=== PATIENT | female | born 2000 | race Two or more races ===

== ENCOUNTER 2020-05-21 12:44 | Emergency (ER) | payer MEDICAID, SELFPAY ==
[2020-05-21 14:16] VITALS: BP 135/94; PULSE 96; RESP 18; TEMP 36.3; O2SAT 99; BMI 32.9
--- NOTE | 2020-05-21 14:40 | CT_ITS ---
EXAMINATION: CT ABDOMEN AND PELVIS WITHOUT CONTRAST CLINICAL INFORMATION: Umbilical pain. Evaluate for abscess. COMPARISON: Abdominal ultrasound March 2019 TECHNIQUE: Multidetector volumetric imaging was performed from the superior aspect of the liver through the pubic symphysis. Sagittal and coronal reformatted images were obtained on the technologist's workstation. This CT examination was performed using dose optimization techniques as appropriate, variously including the following: *Automated exposure control *Adjustment of mA and/or kV according to patient size (this includes techniques or standardized protocols for targeted exams where dose is matched to indication/reason for exam; i.e. extremities or head) *Use of iterative reconstruction technique DLP: 1516 mGy-cm FINDINGS: LUNG BASES: The visualized lung bases are unremarkable. LIVER, GALLBLADDER, AND BILIARY TREE: The liver is normal in size, shape, and attenuation. No focal hepatic lesion or biliary ductal dilatation is present. The gallbladder is unremarkable with no evidence of radiopaque gallstones, gallbladder wall thickening, or obvious pericholecystic inflammatory changes. PANCREAS: Unremarkable. SPLEEN: Unremarkable. ADRENAL GLANDS: Unremarkable. KIDNEYS AND URETERS: The kidneys are normal in size, shape, and attenuation. No hydronephrosis, hydroureter, or calculi seen. No perinephric stranding. BLADDER: Unremarkable. GASTROINTESTINAL TRACT: The small and large bowel are unremarkable. The appendix is unremarkable. ABDOMINAL WALL: There is stranding of the subcutaneous fat in the periumbilical region questionable for cellulitis. No fluid collection/abscess or hernia is seen. LYMPH NODES: Normal. VASCULAR: Unremarkable. PELVIC VISCERA: Unremarkable. 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 Bony structures are otherwise unremarkable CT/CT abdomen pelvis wo con IMPRESSION: Stranding of the fat in the periumbilical region questionable for cellulitis. No evidence of collection/abscess or hernia.
[2020-05-21 15:06] LABS: UPreg QC Valid YES; Urine Pregnancy NEGATIVE (NEGATIVE)
--- NOTE | 2020-05-21 15:47 | ED_ITS ---
HPI - Abdominal Pain General Chief Complaint: Abdominal Pain Stated Complaint: belly button pain Time Seen by Provider: 05/21/20 14:40 Source: patient Mode of arrival: ambulatory Limitations: no limitations History of Present Illness HPI narrative: Patient is a 20-year-old female with no significant past medical history presenting with few days of belly button pain when which is worse when she bends over. She denies fever nausea vomiting or diarrhea or pain in any other part of her abdomen. She has never had this kind of pain before, she has no tattoos or piercings in the area. Related Data Previous Rx's Medication Instructions Recorded cephalexin [Keflex] 500 mg PO QID #28 cap 05/21/20 doxycycline hyclate 100 mg PO BID #14 tab 05/21/20 Allergies Allergy/AdvReac Type Severity Reaction Status Date / Time No Known Allergies Allergy Verified 05/21/20 14:16 Review of Systems Review of Systems Yes all other systems are reviewed and are negative Physical Exam Vital Signs: Vital Signs: Last Vital Signs Temp 97.4 F 05/21/20 14:16 Pulse 96 05/21/20 14:16 Resp 18 05/21/20 14:16 BP 135/94 H 05/21/20 14:16 Pulse Ox 99 05/21/20 14:16 Body Mass Index 32.9 Const: General: cooperative, healthy appearing, comfortable, no acute distress and well developed Nutritional Appearance: average body habitus Orientation/consciousness: patient oriented x3 Eyes: General: appearance normal, both eyes and all related structures Neck: Neck: Yes normal visual inspection Resp: Effort & Inspection: normal respiratory effort and able to speak in complete sentences GI: Inspection: Yes normal to inspection Palpation (GI): Soft to palpation, Tenderness to palpation present (GI) periumbilically, no hernias and no masses Skin: General skin exam: no rashes or lesions noted Neuro: General: patient oriented x3 Course Course Course Narrative: 20-year-old female no significant past medical history presenting with a couple of days pain on her belly button. No obvious infection or abscess is noted but patient has point tenderness on the belly button area at the 06:00 o'clock angela. Will get CT scan to rule out abscess. MDM - Abdominal Pain Lab Data Labs: Lab Results 05/21/20 Range/Units 14:52 Urine Test NEGATIVE (NEGATIVE) Imaging Data CT scan - abdomen: Attestation: I personally reviewed and interpreted this imaging study as follows: Radiologist's impression: [facility] [place], [place] [address]HU Scan ReportSigned Patient: Tracie Mixon [facility]#: [id number]: 2000Acct:[id number]/Sex: 20 / FADM Date: 05/21/20Loc: HO.EDAttending Dr: Ordering Physician: JANE DUBOIS Date of Service: 05/21/20 Procedure(s): CT abdomen pelvis wo con Accession Number(s): [id number] cc: JANE DUBOIS~ EXAMINATION: CT ABDOMEN AND PELVIS WITHOUT CONTRAST CLINICAL INFORMATION: Umbilical pain. Evaluate for abscess. COMPARISON: Abdominal ultrasound March 2019 TECHNIQUE: Multidetector volumetric imaging was performed from the superior aspect of the liver through the pubic symphysis. Sagittal and coronal reformatted images were obtained on the technologist's workstation. This CT examination was performed using dose optimization techniques as appropriate, variously including the following: *Automated exposure control *Adjustment of mA and/or kV according to patient size (this includes techniques or standardized protocols for targeted exams where dose is matched to indication/reason for exam; i.e. extremities or head) *Use of iterative reconstruction technique DLP: 1516 mGy-cm FINDINGS: LUNG BASES: The visualized lung bases are unremarkable. LIVER, GALLBLADDER, AND BILIARY TREE: The liver is normal in size, shape, and attenuation. No focal hepatic lesion or biliary ductal dilatation is present. The gallbladder is unremarkable with no evidence of radiopaque gallstones, gallbladder wall thickening, or obvious pericholecystic inflammatory changes. PANCREAS: Unremarkable. SPLEEN: Unremarkable. ADRENAL GLANDS: Unremarkable. KIDNEYS AND URETERS: The kidneys are normal in size, shape, and attenuation. No hydronephrosis, hydroureter, or calculi seen. No perinephric stranding. BLADDER: Unremarkable. GASTROINTESTINAL TRACT: The small and large bowel are unremarkable. The appendix is unremarkable. ABDOMINAL WALL: There is stranding of the subcutaneous fat in the periumbilical region questionable for cellulitis. No fluid collection/abscess or hernia is seen. LYMPH NODES: Normal. VASCULAR: Unremarkable. PELVIC VISCERA: Unremarkable. 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 Bony structures are otherwise unremarkable CT/CT abdomen pelvis wo con IMPRESSION: Stranding of the fat in the periumbilical region questionable for cellulitis. No evidence of collection/abscess or hernia. Discharge Plan Discharge Clinical Impression: Cellulitis Patient Disposition: Home, Self-Care Instructions: Cellulitis (ED) Additional Instructions: If you develop a fever or the pain is not improving in the next couple of days, please seek emergency medical attention or follow-up with your PCP. Also, as discussed please be sure to take both antibiotics in full, even if you are feeling better. Prescriptions: New cephalexin [Keflex] 500 mg capsule 500 mg PO QID Qty: 28 RF: 0 doxycycline hyclate 100 mg tablet 100 mg PO BID Qty: 14 RF: 0 PMFSH Past Medical History Medical History Asthma Social History Social History Alcohol intake: never Smoking Status: Never smoker Use of substances other than those prescribed or required for medical reasons: No Advance Directives: Yes Advance Directives Information Provided: No Advance Directives on File: No
== END 2020-05-21 16:52 | disposition home or self-care (01) ==
PROVIDERS: Physician Assistant; Emergency Provider Emergency Medicine
DX: L03.316 Cellulitis of umbilicus (principal); R10.9 Unspecified abdominal pain
CPT/HCPCS: 74176; 81025; 99284

== ENCOUNTER 2020-07-22 21:31 | Emergency (ER) | payer MEDICAID, SELFPAY ==
[2020-07-22 21:32] VITALS: BP 126/74; PULSE 102; RESP 18; TEMP 37.2; O2SAT 98
--- NOTE | 2020-07-22 23:13 | ED.GENADULT ---
HPI - General Adult General Chief complaint: General Medical Stated complaint: BELLY BUTTON INFECTION Time Seen by Provider: 07/22/20 23:13 Source: patient Mode of arrival: ambulatory Limitations: no limitations History of Present Illness HPI narrative: Patient's history of umbilical infection in the past comes here with similar redness and tenderness for last 2 days no pus discharge no fever or chills Related Data Previous Rx's Medication Instructions Recorded cephalexin [Keflex] 500 mg PO QID #28 cap 05/21/20 doxycycline hyclate 100 mg PO BID #14 tab 05/21/20 doxycycline hyclate 100 mg PO BID #20 cap 07/22/20 Allergies Allergy/AdvReac Type Severity Reaction Status Date / Time No Known Allergies Allergy Verified 05/21/20 14:16 Review of Systems Review of Systems: Yes all other systems are reviewed and are negative PMFSH Past Medical History Medical History Asthma Cellulitis of umbilicus Social History Social History Alcohol intake: never Smoking Status: Never smoker Smoked in Last 30 Days: No Use of substances other than those prescribed or required for medical reasons: No Advance Directives: No Advance Directives Information Provided: Yes Physical Exam Vital Signs: Vital Signs: Last Vital Signs Temp 98.9 F 07/22/20 21:32 Pulse 102 H 07/22/20 21:32 Resp 18 07/22/20 21:32 BP 126/74 07/22/20 21:32 Pulse Ox 98 07/22/20 21:32 Body Mass Index 0.3 Const: General: no acute distress and well developed HENMT: Head: Yes normocephalic Eyes: General: appearance normal, both eyes and all related structures Resp: Effort & Inspection: normal respiratory effort Skin: Full body images: 1. Slight tenderness and swelling of umbilicus area slight redness without any significant pus discharge Discharge Plan Discharge Clinical Impression: Cellulitis Qualifiers: Site of cellulitis: other site Qualified Code(s): L03.818 - Cellulitis of other sites Patient Disposition: Home, Self-Care Instructions: Cellulitis (ED) Additional Instructions: Local care as advised Take antibiotic as prescribed Report to the ER if worsening of infection/fever Prescriptions: New doxycycline hyclate 100 mg capsule 100 mg PO BID Qty: 20 RF: 0 No Action cephalexin [Keflex] 500 mg capsule 500 mg PO QID Qty: 28 RF: 0 doxycycline hyclate 100 mg tablet 100 mg PO BID Qty: 14 RF: 0
== END 2020-07-22 23:51 | disposition home or self-care (01) ==
PROVIDERS: Emergency Provider Internal Medicine
DX: L03.316 Cellulitis of umbilicus (principal)
CPT/HCPCS: 99283; 99284

== ENCOUNTER → 2021-01-18 12:51 | Outpatient (BNVA) | payer MEDICAID, SELFPAY | PROVIDERS: Referring Provider General Practice; Visit Provider Surgery | DX: L02.216 Cutaneous abscess of umbilicus (principal) | CPT/HCPCS: 99202 ==

== ENCOUNTER 2021-03-12 11:52 | Emergency (ER) | payer MEDICAID, SELFPAY ==
--- NOTE | ~2021-03-12 | XR_ITS ---
EXAMINATION: XR CHEST CLINICAL INFORMATION: Cough. Wheezing. COMPARISON: 12/30/18. TECHNIQUE: Frontal view of the chest was obtained. FINDINGS: There is mild patchy airspace opacity peripherally at the left base consistent with developing pneumonia. The pleural spaces are clear. The heart and mediastinal structures are normal. XR/XR chest 1V IMPRESSION: Mild patchy airspace opacity left lower lobe.
[2021-03-12 12:20] VITALS: BP 153/95; PULSE 112; RESP 18; TEMP 37; O2SAT 98; BMI 32.9
--- NOTE | 2021-03-12 13:55 | ED_ITS ---
HPI - General Adult General Chief complaint: General Medical Stated complaint: flu like symptoms Time Seen by Provider: 03/12/21 13:03 Source: patient Mode of arrival: ambulatory Limitations: no limitations History of Present Illness HPI narrative: 20-year-old female with history of mild intermittent asthma and recurrent bronchitis presents to the ER with 1 week of feeling unwell. She reports a history of getting bronchitis about 5x a year and when she cough started 1 week ago she thought it was just another occurrence of that. She reports over the past few days her cough has become productive of yellow phlegm. She has been feeling feverish but has not had any fevers at home, with a T- max of 99 degrees. She also reports headaches and body aches, nausea with decreased p.o. intake. She states every time she coughs her chest hurts. She has no shortness of breath, difficulty breathing, chest pain at rest. She states she ran out of her albuterol pump and thought she was wheezy yesterday. She is asking for refill. She denies any sick contacts. She has not vaccinated for COVID-19. MD complaint: cough, headache Onset (ago): week(s) (1) Location: head and chest Radiation: non-radiation Severity: moderate Severity scale (1-10): 5 Quality: aching Pain Consistency: intermittent Relieving factors: medication Exacerbating factors: movement Associated symptoms: cough, fever/chills, headaches, loss of appetite and malaise Treatments prior to arrival: none Related Data Home Medications Medication Instructions Recorded Confirmed ibuprofen 600 mg tablet 600 mg PO Q8H PRN 01/18/21 Previous Rx's Medication Instructions Recorded cephalexin 500 mg capsule (Keflex) 500 mg PO QID #28 cap 05/21/20 doxycycline hyclate 100 mg tablet 100 mg PO BID #14 tab 05/21/20 doxycycline hyclate 100 mg capsule 100 mg PO BID #20 cap 07/22/20 albuterol sulfate 90 mcg/actuation 1 inh INHALATION QID PRN #6.7 g 03/12/21 aerosol inhaler amoxicillin 875 mg-potassium 1 tab PO BID #14 tab 03/12/21 clavulanate 125 mg tablet (Augmentin) azithromycin 250 mg tablet See Rx Instructions .ROUTE 03/12/21 (Zithromax Z-Don) .COMPLEX #6 tab prednisone 20 mg tablet 40 mg PO DAILY #10 tab 03/12/21 Allergies Allergy/AdvReac Type Severity Reaction Status Date / Time No Known Allergies Allergy Verified 05/21/20 14:16 Review of Systems Review of Systems: Constitutional: No Fever, + Chills ENT/Mouth: No sore throat, + Rhinorrhea, No Swallowing Difficulty Eyes: No Eye Pain, No Swelling, No Redness Cardiovascular: + Chest Pain (when coughing), No SOB, No Orthopnea, No Edema Respiratory: + Cough, + Sputum, + Wheezing, No dyspnea Gastrointestinal: No Nausea, No Vomiting, No Diarrhea, No abdominal Pain Genitourinary: No Dysuria, No Urinary Frequency, No Hematuria Musculoskeletal: No joint pain, + Myalgias Skin: No Skin Lesions, No rash Neuro: No Weakness, No Numbness, No Dizziness, + Headache Psych: No Anxiety/Panic, No Depression Heme/Lymph: No Bruising, No Lymphadenopathy PMFSH Past Medical History Medical History Asthma Cellulitis of umbilicus Surgical History Hx of umbilical hernia repair Social History Social History Alcohol intake: never Advance Directives: No Physical Exam Vital Signs: Vital Signs: Last Vital Signs Temp 98.6 F 03/12/21 12:20 Pulse 112 H 03/12/21 12:20 Resp 18 03/12/21 12:20 BP 153/95 H 03/12/21 12:20 Pulse Ox 98 03/12/21 12:20 Body Mass Index 32.9 Appearance: Alert. Oriented X3. No acute distress. Eyes: Pupils equal, round and reactive to light. ENT: Pharynx normal. Neck: Normal inspection. Neck supple. CVS: Normal heart rate and rhythm. Pulses normal. Respiratory: No respiratory distress. Breath sounds normal. Abdomen: Soft and nontender. +BS x4 Skin: Skin warm and dry. Normal skin color. Normal skin turgor. No rashes. Extremities: No lower extremity edema. Neuro: Oriented X 3. No motor deficit. No sensory deficit. Course Course Course Narrative: 20 y/o female With history of mild intermittent asthma presenting to the ER with COVID and flu like symptoms for last 1 week. She is not vaccinated for COVID. Her lungs are clear & she is afebrile. HR 112 in triage which has normalized to the 80s on my examination. She is nontoxic- appearing. Her clinical presentation is most consistent with acute viral syn drome. Will get viral PCR chest x-ray to rule out pneumonia. Reevaluation(s) Reevaluation #1: Viral PCR negative. CXR with LLL opacity c/w CAP. Will treat with PO abx and prednisone. Albuterol refill sent to pharmacy. Stable for d/c home. Medical Decision Making Lab Data Labs: Lab Results 03/12/21 03/12/21 Range/Units 13:41 14:19 Urine Test NEGATIVE (NEGATIVE) Influenza Type A (PCR) NEGATIVE (Negative) Influenza Type B (PCR) NEGATIVE (Negative) RSV RNA Qual (PCR) NEGATIVE (Negative) SARS-CoV-2 RNA (RT-PCR) NEGATIVE (Negative) Critical Care Time Critical Care Time Critical Care Time: No Discharge Plan Discharge Clinical Impression: Pneumonia Qualifiers: Pneumonia type: due to unspecified organism Laterality: left Lung location: lower lobe of lung Qualified Code(s): J18.9 - Pneumonia, unspecified organism Patient Disposition: Home, Self-Care Instructions: Pneumonia (ED) Additional Instructions: You were negative for COVID-19, influenza and RSV. Your x-ray showed a small pneumonia in the left lower lung. Take the prescribed antibiotics as directed. Complete the entire course. Also take the prescribed steroids for the inflammation in your lungs. Use the inhaler as needed. Recommend Mucinex to help break up the pneumonia. Take Tylenol and/or Motrin as needed for body aches and fevers. Follow up with your doctor as needed. If you develop new or worsening symptoms call 911 or come back to the ER for further evaluation. Prescriptions: New azithromycin [Zithromax Z-Don] 250 mg tablet See Rx Instructions .ROUTE .COMPLEX Qty: 6 RF: 0 prednisone 20 mg tablet 40 mg PO DAILY Qty: 10 RF: 0 albuterol sulfate 90 mcg/actuation HFA aerosol inhaler 1 inh inhalation QID PRN (Reason: shortness of breath or wheezing) Qty: 6.7 RF: 0 amoxicillin-pot clavulanate [Augmentin] 875-125 mg tablet 1 tab PO BID Qty: 14 RF: 0 No Action cephalexin [Keflex] 500 mg capsule 500 mg PO QID Qty: 28 RF: 0 doxycycline hyclate 100 mg tablet 100 mg PO BID Qty: 14 RF: 0 doxycycline hyclate 100 mg capsule 100 mg PO BID Qty: 20 RF: 0 ibuprofen 600 mg tablet 600 mg PO Q8H PRNRF: 0
[2021-03-12 14:24] LABS: UPreg QC Valid YES
[2021-03-12 14:26] LABS: Urine Pregnancy NEGATIVE (NEGATIVE)
[2021-03-12 14:41] LABS: Influenza A PCR NEGATIVE (Negative); Influenza B PCR NEGATIVE (Negative); Resp Syncy Virus RNA Qual PCR NEGATIVE (Negative); SARS COV2 PCR INHOUSE NEGATIVE (Negative)
[2021-03-12 15:30] VITALS: BP 146/91; PULSE 120; RESP 18; TEMP 36.9; O2SAT 97
== END 2021-03-12 15:38 | disposition home or self-care (01) ==
PROVIDERS: Physician Assistant; Emergency Provider Emergency Medicine Emergency Medical Services; PCP General Practice
DX: J18.9 Pneumonia, unspecified organism (principal); J45.20 Mild intermittent asthma, uncomplicated; Z20.822 Contact with and (suspected) exposure to COVID-19
CPT/HCPCS: 0241U; 36415; 71045; 81025; 99283; 99284

== ENCOUNTER 2021-08-22 18:14 | Emergency (ER) | payer MEDICAID, SELFPAY ==
[2021-08-22 20:58] VITALS: BP 126/68; PULSE 88; RESP 14; TEMP 37.1; O2SAT 99; BMI 32.7
[2021-08-22 21:14] LABS: Strep A Nucleic Acid Negative (Negative)
[2021-08-22 21:18] LABS: COVID-19 Test Negative (Negative); IDNOW Serial# 16C4AD1C; Influenza A Negative (Negative); Influenza B2 Negative (Negative)
--- NOTE | 2021-08-22 22:24 | ED_ITS ---
HPI - URI/Sore Throat General Chief Complaint: Upper Respiratory Symptoms Stated Complaint: congestion/sore throat/ear pain Time Seen by Provider: 08/22/21 22:24 Source: patient Mode of arrival: ambulatory Limitations: no limitations History of Present Illness HPI Narrative: 21 y//o female presents to the ER with sore throat, bilateral ear pain, headache, nasal congestion for the last 3 days. She denies fever or chills. No known sick contacts. She reports a dry cough at night and post nasal drip. No known history of seasonal allergies but she has been sneezing a lot lately and has watery and itchy eyes. No SOB or chest pain. No N/V/D or abdominal pain. She reports a history of asthma but denies any wheezing or need for her inhaler lately. MD elicited complaint: sore throat, rhinorrhea and nasal congestion Pertinent past history: asthma Onset (ago): day(s) (3) Consistency: constant Severity: moderate Description of mucous: clear and watery Able to tolerate fluids by mouth: Yes Exacerbating factors: other (night) Relieving factors: nothing Associated symptoms: headache, rhinorrhea, nasal congestion, sore throat and cough Treatments prior to arrival: none Related Data Home Medications Medication Instructions Recorded Confirmed ibuprofen 600 mg tablet 600 mg PO Q8H PRN 01/18/21 Previous Rx's Medication Instructions Recorded cephalexin 500 mg capsule (Keflex) 500 mg PO QID #28 cap 05/21/20 doxycycline hyclate 100 mg tablet 100 mg PO BID #14 tab 05/21/20 doxycycline hyclate 100 mg capsule 100 mg PO BID #20 cap 07/22/20 albuterol sulfate 90 mcg/actuation 1 inh INHALATION QID PRN #6.7 g 03/12/21 aerosol inhaler amoxicillin 875 mg-potassium 1 tab PO BID #14 tab 03/12/21 clavulanate 125 mg tablet (Augmentin) azithromycin 250 mg tablet See Rx Instructions .ROUTE 03/12/21 (Zithromax Z-Don) .COMPLEX #6 tab prednisone 20 mg tablet 40 mg PO DAILY #10 tab 03/12/21 cetirizine 10 mg capsule (Zyrtec) 10 mg PO DAILY #14 cap 08/22/21 fluticasone propionate 50 1 spray INTRANASAL Q12H #16 g 08/22/21 mcg/actuation nasal spray,suspension (Flonase Allergy Relief) Allergies Allergy/AdvReac Type Severity Reaction Status Date / Time No Known Allergies Allergy Verified 05/21/20 14:16 Review of Systems Review of Systems: Constitutional: No Fever, No Chills ENT/Mouth: + sore throat, + Rhinorrhea, No Swallowing Difficulty Eyes: No Eye Pain, No Swelling, No Redness, +itchy eyes, +watery eyes, No discharge, +Otalgia Cardiovascular: No Chest Pain, No SOB Respiratory: + Cough, No Sputum, No Wheezing, No dyspnea Gastrointestinal: No Nausea, No Vomiting, No Diarrhea, No abdominal Pain Musculoskeletal: No joint pain, No Myalgias Skin: No Skin Lesions, No rash Neuro: No Dizziness, + Headache Heme/Lymph: No Lymphadenopathy PMFSH Past Medical History Medical History Asthma Cellulitis of umbilicus Surgical History Hx of umbilical hernia repair Social History Social History Alcohol intake: never Advance Directives: No Physical Exam Vital Signs: Vital Signs: Last Vital Signs Temp 97.9 F 08/22/21 22:26 Pulse 79 08/22/21 22:26 Resp 17 08/22/21 22:26 BP 120/80 08/22/21 22:26 Pulse Ox 99 08/22/21 22:26 BMI result Body Mass Index 32.7 Appearance: Alert. Oriented X3. No acute distress. Eyes: Pupils equal, round and reactive to light. ENT: Pharynx with moist mucus membranes. Tonsils enlarged bilaterally without erythema or exudate. uvula midline, normal voice. nasal turbinates are e rythematous and inflammed wtih clear nasal discharge, no sinus tenderness. normal TMs bilaterally. Neck: Normal inspection. Neck supple. No LAD CVS: Normal heart rate and rhythm. Pulses normal. Respiratory: No respiratory distress. Breath sounds normal. Skin: Skin warm and dry. Normal skin color. Normal skin turgor. No rashes. Extremities: No lower extremity edema. Neuro: Oriented X 3. grossly normal, nonfocal Course Course Course Narrative: 21 yo female with history of mild intermittent asthma presents to the ER with URI symptoms x3 days. VS are normal. Exam is benign. COVID, Flu and Strep are all negative. Symptom most likely due to seasonal allergies vs viral illness or combination thereof. Recommend starting Zyrtec and Flonase as well as taking OTC cold/flu medications as needed for her other symptoms. She is stable for discharge home. Work note provided per request. MDM - URI/Sore Throat Lab Data Labs: Lab Results 08/22/21 08/22/21 08/22/21 Range/Units 20:55 20:55 20:55 COVID-19 (TRACEY) Negative (Negative) COVID-19 Clin Com See Note Influenza Type A (SHIRAZ) Negative (Negative) Influenza Type B (SHIRAZ) Negative (Negative) Influenza A & B Note See Note S. pyogenes GrpA SHIRAZ Negative (Negative) Critical Care Time Critical Care Time Critical Care Time: No Discharge Plan Discharge Clinical Impression: Viral infection, Seasonal allergies Patient Disposition: Home, Self-Care Instructions: Allergic Rhinitis (DC), Viral Syndrome (ED) Additional Instructions: You are negative for COVID-19, influenza and strep throat. Your symptoms are most likely due to either another viral type infection or due to seasonal allergies. Recommend starting the newly prescribed medications as directed. Take cold and flu medications as needed for your other symptoms. Rest and stay hydrated, drink plenty of water. Follow-up with your primary care doctor as needed. If you develop new or worsening symptoms call 911 or come back to the ER for further evaluation. Prescriptions: New Zyrtec 10 mg capsule 10 mg PO DAILY Qty: 14 0RF fluticasone propionate [Flonase Allergy Relief] 50 mcg/actuation spray,suspension 1 spray intranasal Q12H Qty: 16 0RF Rx Instructions: administer into each nostril No Action cephalexin [Keflex] 500 mg capsule 500 mg PO QID Qty: 28 0RF doxycycline hyclate 100 mg tablet 100 mg PO BID Qty: 14 0RF doxycycline hyclate 100 mg capsule 100 mg PO BID Qty: 20 0RF azithromycin [Zithromax Z-Don] 250 mg tablet See Rx Instructions .ROUTE .COMPLEX Qty: 6 0RF Rx Instructions: take 500 mg today (day 1), then 250 mg for 4 days (days 2-5) prednisone 20 mg tablet 40 mg PO DAILY Qty: 10 0RF albuterol sulfate 90 mcg/actuation HFA aerosol inhaler 1 inh inhalation QID PRN (Reason: shortness of breath or wheezing) Qty: 6.7 0RF amoxicillin-pot clavulanate [Augmentin] 875-125 mg tablet 1 tab PO BID Qty: 14 0RF ibuprofen 600 mg tablet 600 mg PO Q8H PRN0RF Stand Alone Forms: Work/School Release Interventions: ED Discharge Assessment Last Done: 08/22/21 22:56 Discharge Date/Time: 08/22/21 23:25
[2021-08-22 22:26] VITALS: BP 120/80; PULSE 79; RESP 17; TEMP 36.6; O2SAT 99
== END 2021-08-22 23:25 | disposition home or self-care (01) ==
LOC: HO.ED 22:50
PROVIDERS: Emergency Provider Student in an Organized Health Care Education/Training Program
DX: B34.9 Viral infection, unspecified (principal); J02.8 Acute pharyngitis due to other specified organisms; R51.9 Headache, unspecified; J34.89 Other specified disorders of nose and nasal sinuses; R05.9 Cough, unspecified; Z20.822 Contact with and (suspected) exposure to COVID-19; Z79.899 Other long term (current) drug therapy
CPT/HCPCS: 87502; 87635; 87651; 99283; 99284

== ENCOUNTER 2022-04-18 15:14 | Emergency (ER) | payer MEDICAID, SELFPAY ==
--- NOTE | ~2022-04-18 | XR_ITS ---
EXAMINATION: XR FOOT, LEFT CLINICAL INFORMATION: Left fifth toe pain. COMPARISON: None TECHNIQUE: AP, lateral, and oblique views of the left foot. FINDINGS: There is a nondisplaced fracture proximal end of proximal phalanx fifth digit. Minimal soft tissue swelling seen. No additional fracture seen. XR/XR foot LT 2V IMPRESSION: Fracture proximal end proximal phalanx fifth digit. Mild soft tissue swelling
[2022-04-18 17:17] VITALS: BP 140/79; PULSE 78; RESP 18; TEMP 36.6; O2SAT 99; BMI 23.3
--- NOTE | 2022-04-18 17:18 | ED_ITS ---
HPI - General Adult General Chief complaint: Extremity Injury, Lower Stated complaint: toe injury Source: patient Mode of arrival: ambulatory Limitations: no limitations History of Present Illness HPI narrative: This is a 21-year-old female presenting to the emergency department complaints pain to her left 5th toe. Patient tells me she stubbed her toe earlier today. Denies numbness, tingling. Reports swelling, pain and bruising at the site. Related Data Home Medications Medication Instructions Recorded Confirmed ibuprofen 600 mg tablet 600 mg PO Q8H PRN 01/18/21 Previous Rx's Medication Instructions Recorded cephalexin 500 mg capsule (Keflex) 500 mg PO QID #28 caps 05/21/20 doxycycline hyclate 100 mg tablet 100 mg PO BID #14 tabs 05/21/20 doxycycline hyclate 100 mg capsule 100 mg PO BID #20 caps 07/22/20 albuterol sulfate 90 mcg/actuation 1 inh inhalation QID PRN shortness 03/12/21 aerosol inhaler of breath or wheezing #6.7 grams amoxicillin 875 mg-potassium 1 tab PO BID #14 tabs 03/12/21 clavulanate 125 mg tablet (Augmentin) azithromycin 250 mg tablet See Rx Instructions PO .COMPLEX #6 03/12/21 (Zithromax Z-Don) tabs prednisone 20 mg tablet 40 mg PO DAILY #10 tabs 03/12/21 cetirizine 10 mg capsule (Zyrtec) 10 mg PO DAILY #14 caps 08/22/21 fluticasone propionate 50 1 spray intranasal Q12H #16 grams 08/22/21 mcg/actuation nasal spray,suspension (Flonase Allergy Relief) Allergies Allergy/AdvReac Type Severity Reaction Status Date / Time No Known Allergies Allergy Verified 04/18/22 17:21 Review of Systems Review of Systems: Constitutional : No Weight loss, No Fever, No Chills, No Fatigue, No Malaise ENT/Mouth : No sore throat, No Rhinorrhea Eyes: No Eye Pain, No Swelling, No Redness Cardiovascular : No Chest Pain, No SOB, No Dyspnea on Exertion, No Orthopnea, No Edema, No Palpitations Respiratory : No Cough, No Sputum, No Wheezing Gastrointestinal : No Nausea, No Vomiting, No Diarrhea, No Constipation, No abdominal Pain, No Hematochezia, No Melena Genitourinary : No Dysuria, No Urinary Frequency, No Hematuria, Musculoskeletal : + joint pain, No Myalgias, + Joint Swelling Skin : No Skin Lesions, No rash Neuro : No Weakness, No Numbness, No Dizziness, No Headache Psych : No Anxiety/Panic, No Depression All other systems reviewed and are negative Yes all other systems are reviewed and are negative [facility] Past Medical History Attestation statement: The following information was validated with the patient. Source: old records reviewed and nursing notes reviewed Medical History Asthma Cellulitis of umbilicus Surgical History Hx of umbilical hernia repair Social History Social History Alcohol intake: never Physical Exam ED Vital Signs: Vital Signs - 24 hr 04/18/22 17:17 Temperature 97.9 F Pulse Rate 78 Respiratory Rate 18 Blood Pressure 140/79 H Pulse Oximetry 99 Oxygen Delivery Method Room Air BMI result Body Mass Index 23.3 vss Appearance: Alert.? Oriented X3.? No acute distress.? Head: Normocephalic, atraumatic, no step-offs or deformities Eyes: Pupils equal, round and reactive to light.? ENT: Pharynx normal.? Neck: Normal inspection.? Neck supple.? CVS: Normal heart rate and rhythm.? Pulses normal.? Respiratory: No respiratory distress.? Breath sounds normal.? Abdomen: Soft and nontender.? Skin: Skin warm and dry.? Normal skin color.? Normal skin turgor.? Extremities: No lower extremity edema.? No calf ttp. 5/5 strength to bilateral upper and lower extremities mild ecchymosis noted to the left 5th toe. Full range of motion to toe and ankle. 2+ dorsalis pedis, anterior tibialis and posterior tibialis pulses equal bilateral. Normal sensation. Patient ambulatory with steady gait normal coordination. Neuro: Oriented X 3.? No motor deficit.? No sensory deficit. CN 2-12 intact Course Course Course Narrative: 1718 RME 21 yo f presents sp stubbing her toe earlier today on her couch reports left 5th toe pain. Reports its bruising and painful PE: w/ slight ecchymosis to left 5th toe. Normal pulses. Plan- xray Medical Decision Making Medical Decision Making [facility] Narrative: 184 21-year-old female presents with pain to her left pinky tell, patient stubbed her toe prior to arrival. On exam mild ecchymosis the left 5th toe, full range of motion. Neurovascularly intact Likely sprain/strain. Unlikely fracture dislocation Imaging was obtained from triage Critical Care Time Critical Care Time Critical Care Time: No Discharge Plan Discharge Clinical Impression: Pain in toe Patient Disposition: Home, Self-Care Additional Instructions: Take your medications as prescribed. If you were prescribed antibiotics today, it is important that you take your medication to their entirety, do not skip any doses, do not finish them early. Follow-up with your primary care provider this week. Return to the emergency department with new or worsening symptoms. Such as fevers, chills, chest pain, shortness of breath, nausea, vomiting, dizziness, headache, vision changes, lethargy In case of emergency call 911 The final imaging results are still pending however I suspect he may have a small fracture to your 5th toe. I will call you have it is positive. Rest, ice, compress and elevate your extremity. You can take ibuprofen every 6 hours, Tylenol every 4 as needed for pain or discomfort. Prescriptions: No Action cephalexin [Keflex] 500 mg capsule 500 mg PO QID Qty: 28 0RF doxycycline hyclate 100 mg tablet 100 mg PO BID Qty: 14 0RF doxycycline hyclate 100 mg capsule 100 mg PO BID Qty: 20 0RF Zyrtec 10 mg capsule 10 mg PO DAILY Qty: 14 0RF fluticasone propionate [Flonase Allergy Relief] 50 mcg/actuation spray,suspension 1 spray intranasal Q12H Qty: 16 0RF Rx Instructions: administer into each nostril azithromycin [Zithromax Z-Don] 250 mg tablet See Rx Instructions .ROUTE .COMPLEX Qty: 6 0RF Rx Instructions: take 500 mg today (day 1), then 250 mg for 4 days (days 2-5) prednisone 20 mg tablet 40 mg PO DAILY Qty: 10 0RF albuterol sulfate 90 mcg/actuation HFA aerosol inhaler 1 inh inhalation QID PRN (Reason: shortness of breath or wheezing) Qty: 6.7 0RF amoxicillin-pot clavulanate [Augmentin] 875-125 mg tablet 1 tab PO BID Qty: 14 0RF ibuprofen 600 mg tablet 600 mg PO Q8H PRN Referrals: [facility] [Provider Group] - 2 days Physician,Unknown J [Primary Care Provider] - 2 days Stand Alone Forms: Work/School Release
== END 2022-04-18 19:18 | disposition home or self-care (01) ==
PROVIDERS: Emergency Provider Internal Medicine
DX: M79.675 Pain in left toe(s) (principal)
CPT/HCPCS: 73620; 99282; 99283

== ENCOUNTER 2022-07-27 18:40 | Emergency (ER) | payer MEDICAID, SELFPAY ==
--- NOTE | ~2022-07-27 | XR_ITS ---
EXAMINATION: XR ABDOMEN COMPLETE CLINICAL INDICATION: Reason for Exam vomiting, constipation COMPARISON: None TECHNIQUE: AP view of the abdomen. FINDINGS: Lines or devices: None. Nonobstructive bowel gas pattern. Large colonic stool burden in the right hemicolon with multiple punctate radiodensities overlying the bowel which may reflect ingested bowel contents. Supine technique limits evaluation for extraluminal air although no secondary findings are appreciated. No abnormal calcifications. XR/XR KUB IMPRESSION: * Nonobstructive bowel gas pattern. Large colonic stool burden in the right hemicolon.
[2022-07-27 19:02] VITALS: BP 140/85; PULSE 106; RESP 18; TEMP 36.6; O2SAT 97; BMI 34.7
--- NOTE | 2022-07-27 19:05 | ED_ITS ---
HPI - Abdominal Pain General Chief Complaint: General Medical <SARAH Coker - Last Filed: 07/27/22 19:06> Stated Complaint: constipated,nausea <SARAH Coker - Last Filed: 07/27/22 19:06> Time Seen by Provider: 07/27/22 20:21 <SARAH Coker - Last Filed: 07/27/22 19:06> Source: patient <Katie Greenberg MD - Last Filed: 07/27/22 20:43> Mode of arrival: ambulatory <Katie Greenberg MD - Last Filed: 07/27/22 20:43> Limitations: no limitations <Katie Greenberg MD - Last Filed: 07/27/22 20:43> History of Present Illness HPI narrative: Patient comes to the emergency room complaining of constipation for over a week. Patient states that she has had issues with constipation in the past. Patient tried an [id number] laxative from [employer] with no relief. Patient complaining of nausea, no vomiting, no diarrhea, no URI or UTI symptoms <Katie Greenberg MD - Last Filed: 07/27/22 20:43> Related Data Home Medications: Home Medications Medication Instructions Recorded Confirmed ibuprofen 600 mg tablet 600 mg PO Q8H PRN 01/18/21 Previous Rx's Medication Instructions Recorded cephalexin 500 mg capsule (Keflex) 500 mg PO QID #28 caps 05/21/20 doxycycline hyclate 100 mg tablet 100 mg PO BID #14 tabs 05/21/20 doxycycline hyclate 100 mg capsule 100 mg PO BID #20 caps 07/22/20 albuterol sulfate 90 mcg/actuation 1 inh inhalation QID PRN shortness 03/12/21 aerosol inhaler of breath or wheezing #6.7 grams amoxicillin 875 mg-potassium 1 tab PO BID #14 tabs 03/12/21 clavulanate 125 mg tablet (Augmentin) azithromycin 250 mg tablet See Rx Instructions PO .COMPLEX #6 03/12/21 (Zithromax Z-Don) tabs prednisone 20 mg tablet 40 mg PO DAILY #10 tabs 03/12/21 cetirizine 10 mg capsule (Zyrtec) 10 mg PO DAILY #14 caps 08/22/21 fluticasone propionate 50 1 spray intranasal Q12H #16 grams 08/22/21 mcg/actuation nasal spray,suspension (Flonase Allergy Relief) lactulose 10 gram oral packet 20 g PO BID #15 ea 07/27/22 <SARAH Coker - Last Filed: 07/27/22 19:06> Allergies/Adverse Reactions: Allergies Allergy/AdvReac Type Severity Reaction Status Date / Time No Known Allergies Allergy Verified 07/27/22 19:06 <SARAH Coker - Last Filed: 07/27/22 19:06> Review of Systems Review of Systems Constitutional : No Weight loss, No Fever, No Chills, No Night Sweats, No Fatigue, No Malaise ENT/Mouth : No Hearing loss, No Ear Pain, No Nasal Congestion, No Sinus Pain, No Hoarseness, No sore throat, No Rhinorrhea, No Swallowing Difficulty Eyes: No Eye Pain, No Swelling, No Redness, No Foreign Body, No Discharge, No Vision Changes Cardiovascular : No Chest Pain, No SOB, No Dyspnea on Exertion, No Orthopnea, No Edema, No Palpitations Respiratory : No Cough, No Sputum, No Wheezing, No Smoke Exposure, No Dyspnea Gastrointestinal : No Nausea, No Vomiting, No Diarrhea, complaining of Constipation, No abdominal Pain, No Hematochezia, No Melena Genitourinary : no irregular bleeding, No Dysuria, No Urinary Frequency, No Hematuria, No Urinary Incontinence, No Urgency, No Flank Pain, No Urinary Flow Changes, No Hesitancy Musculoskeletal : No joint pain, No Myalgias, No Joint Swelling Skin : No Skin Lesions, No rash Neuro : No Weakness, No Numbness, No Paresthesias, No Loss of Consciousness, No Dizziness, No Headache Psych : No Anxiety/Panic, No Depression, No SI/HI/AH/VH, No Social Issues, Heme/Lymph: No Bruising, No Bleeding,No Lymphadenopathy Endocrine : No Polyuria, No Polydipsia, No Temperature Intolerance <Katie Greenberg MD - Last Filed: 07/27/22 20:43> [facility] Past Medical History Medical History: Medical History Asthma Cellulitis of umbilicus <SARAH Coker - Last Filed: 07/27/22 19:06> Surgical History: Surgical History Hx of umbilical hernia repair <SARAH Coker - Last Filed: 07/27/22 19:06> Social History Social History: Social History Alcohol intake: never Advance Directives: No Advance Directives Information Provided: Yes <SARAH Coker - Last Filed: 07/27/22 19:06> Physical Exam ED Vital Signs: Vital Signs - 24 hr 07/27/22 19:02 07/27/22 20:24 Temperature 97.8 F 98.1 F Pulse Rate 106 H 82 Respiratory Rate 18 12 Blood Pressure 140/85 H 111/76 Pulse Oximetry 97 99 Oxygen Delivery Method Room Air Room Air BMI result Body Mass Index 34.7 <SARAH Coker - Last Filed: 07/27/22 19:06> Vital Signs - 24 hr 07/27/22 19:02 07/27/22 20:24 Temperature 97.8 F 98.1 F Pulse Rate 106 H 82 Respiratory Rate 18 12 Blood Pressure 140/85 H 111/76 Pulse Oximetry 97 99 Oxygen Delivery Method Room Air Room Air BMI result Body Mass Index 34.7 <Katie Greenberg MD - Last Filed: 07/27/22 20:43> Const Other: Appearance: Alert. Oriented X3. No acute distress. Eyes: Pupils equal, round and reactive to light. ENT: Pharynx normal. Neck: Normal inspection. Neck supple. No lymph nodes noted. No crepitus CVS: Normal heart rate and rhythm. Pulses normal. Normal S1 and S2 Respiratory: No respiratory distress. Breath sounds normal. No Wheezing. No rales Abdomen: Soft and nontender. No rigidity. Mild distention. No rebound, no guarding Skin: Skin warm and dry. Normal skin color. Normal skin turgor. Extremities: No lower extremity edema. No Lacerations. No Rash Neuro: Oriented X 3. No motor deficit. No sensory deficit. Moving all extremities. No slurred speech. CN 2 through 12 grossly intact Psych: calm, cooperative, normal affect <Katie Greenberg MD - Last Filed: 07/27/22 20:43> Course Course Course Narrative: RME - 22 yo female presents to the ER for evaluation of 3 weeks of upper abdominal pains, nausea, vomiting and inability to tolerate PO. She took a test yesterday and it was negative. No BM in 1 week. Minimal gas. Abd is soft with mild diffuse tenderness. Plan: labs, r/o and KUB, doubt obstruction <SARAH Coker - Last Filed: 07/27/22 19:06> Medical Decision Making Medical Decision Making [facility] Narrative: I discussed the case with the patient, there is a a large amount of stool in the colon. A rectal disimpaction would not help much. Patient is significa ntly backed up. Discussed with the patient to take laxative which I will prescribe and drink plenty of water. KUB interpreted by me: Large amount of stool in the colon, no air-fluid levels to suggest SBO Patient's urinalysis shows leukocyte esterase, however there is a large amount of epithelial cells. Likely a contaminant. Patient has no UTI symptoms. Antibiotics are not indicated at this time. <Katie Greenberg MD - Last Filed: 07/27/22 20:43> Admission/Observation Consideration of admission/observation: Escalation of care including admission/observation considered (Constipation, bowel obstruction) <Katie Greenberg MD - Last Filed: 07/27/22 20:43> Lab Data [facility] Lab Attestation statement: I reviewed the patient's lab results. <Katie Greenberg MD - Last Filed: 07/27/22 20:43> Result Diagrams: 07/27/22 19:29 07/27/22 19:29 <SARAH Coker - Last Filed: 07/27/22 19:06> Labs: Lab Results 07/27/22 07/27/22 07/27/22 Range/Units 19:26 19:26 19:29 WBC (4.8-10.8) X10*3/uL RBC (4.20-5.50) X10*6/uL Hgb (12.0-16.0) g/dl Hct (37.0-47.0) % MCV (80.0-98.0) fL MCH (27.0-33.0) pg MCHC (31.0-35.0) g/dl RDW (11.0-16.0) % Plt Count (160-400) X10*3/uL MPV (9.4-12.3) fL Immature Gran % (Auto) (0.0-0.4) % Neut % (Auto) (45-73) % Lymph % (Auto) (20-40) % [place] % (Auto) (2-11) % Eos % (Auto) (0-4) % Baso % (Auto) (0-2) % Lymph # (Auto) (1.2-4.9) X10*3/uL [place] # (Auto) (0.1-1.2) X10*3/uL Eos # (Auto) (0.0-0.4) X10*3/uL Baso # (Auto) (0.0-0.2) X10*3/uL Abs Immat Gran (auto) (0.00-0.03) X10*3/uL Absolute Neuts (auto) (2.0-8.3) x10*3/uL Absolute Nucleated RBC (0.0-0.012) X10*3/uL Nucleated RBC % (auto) (0.0-0.2) /100WBC Sodium 142 (135-145) mmol/L Potassium 3.8 (3.3-5.1) mmol/L Chloride 108 (96-108) mmol/L Carbon Dioxide 26 (22-29) mmol/L Anion Gap 12 (12-20) BUN 12 (9-16) mg/dL Creatinine 0.72 (0.5-1.4) mg/dL Estim Creat Clear Calc 123.8 Estimated GFR > 60 Random Glucose 96 (60-115) mg/dL Calcium 9.7 (8.4-10.2) mg/dL Magnesium 1.9 (1.6-2.6) mg/dL Total Bilirubin 0.5 (0.0-1.0) mg/dL Direct Bilirubin < 0.2 (0.0-0.5) mg/dL AST 18 (5-31) U/L ALT 15 (0-31) U/L Alkaline Phosphatase 58 (39-117) U/L Total Protein 7.2 (6.5-8.0) g/dL Albumin 4.4 (3.5-5.0) g/dL Lipase 19 (8-78) U/L Beta HCG, Quant < 2 mIU/mL Urine Color Yellow Urine Appearance Cloudy Urine pH 6.5 (5.0-9.0) Ur Specific [place] >= 1.030 H (1.005-1.025) Urine Protein Negative (Neg-Trace) mg/dL Urine Glucose (UA) Negative (Negative) mg/dL Urine Ketones Negative (Negative) mg/dL Urine Blood Negative (Negative) Urine Nitrite Negative (Negative) Ur Leukocyte Esterase Small (1+) H (Negative) Urine RBC 11-20 H (0-2) /HPF Urine WBC 0-5 (0-5) /HPF Ur Squamous Epith Cells 11-20 (0-2) /HPF Urine Bacteria 1+ (None Seen) Hyaline Casts 0-2 (0-2) /LPF Urine Test NEGATIVE (NEGATIVE) 07/27/22 Range/Units 19:29 WBC 8.5 (4.8-10.8) X10*3/uL RBC 4.67 (4.20-5.50) X10*6/uL Hgb 13.4 (12.0-16.0) g/dl Hct 39.6 (37.0-47.0) % MCV 84.8 (80.0-98.0) fL MCH 28.7 (27.0-33.0) pg MCHC 33.8 (31.0-35.0) g/dl RDW 12.1 (11.0-16.0) % Plt Count 316 (160-400) X10*3/uL MPV 10.3 (9.4-12.3) fL Immature Gran % (Auto) 0.1 (0.0-0.4) % Neut % (Auto) 63.4 (45-73) % Lymph % (Auto) 28.6 (20-40) % [place] % (Auto) 6.9 (2-11) % Eos % (Auto) 0.4 (0-4) % Baso % (Auto) 0.6 (0-2) % Lymph # (Auto) 2.4 (1.2-4.9) X10*3/uL [place] # (Auto) 0.6 (0.1-1.2) X10*3/uL Eos # (Auto) 0.0 (0.0-0.4) X10*3/uL Baso # (Auto) 0.1 (0.0-0.2) X10*3/uL Abs Immat Gran (auto) 0.01 (0.00-0.03) X10*3/uL Absolute Neuts (auto) 5.4 (2.0-8.3) x10*3/uL Absolute Nucleated RBC 0.000 (0.0-0.012) X10*3/uL Nucleated RBC % (auto) 0.0 (0.0-0.2) /100WBC Sodium (135-145) mmol/L Potassium (3.3-5.1) mmol/L Chloride (96-108) mmol/L Carbon Dioxide (22-29) mmol/L Anion Gap (12-20) BUN (9-16) mg/dL Creatinine (0.5-1.4) mg/dL Estim Creat Clear Calc Estimated GFR Random Glucose (60-115) mg/dL Calcium (8.4-10.2) mg/dL Magnesium (1.6-2.6) mg/dL Total Bilirubin (0.0-1.0) mg/dL Direct Bilirubin (0.0-0.5) mg/dL AST (5-31) U/L ALT (0-31) U/L Alkaline Phosphatase (39-117) U/L Total Protein (6.5-8.0) g/dL Albumin (3.5-5.0) g/dL Lipase (8-78) U/L Beta HCG, Quant mIU/mL Urine Color Urine Appearance Urine pH (5.0-9.0) Ur Specific [place] (1.005-1.025) Urine Protein (Neg-Trace) mg/dL Urine Glucose (UA) (Negative) mg/dL Urine Ketones (Negative) mg/dL Urine Blood (Negative) Urine Nitrite (Negative) Ur Leukocyte Esterase (Negative) Urine RBC (0-2) /HPF Urine WBC (0-5) /HPF Ur Squamous Epith Cells (0-2) /HPF Urine Bacteria (None Seen) Hyaline Casts (0-2) /LPF Urine Test (NEGATIVE) <SARAH Coker - Last Filed: 07/27/22 19:06> Lab Results 07/27/22 07/27/22 07/27/22 Range/Units 19:26 19:26 19:29 WBC (4.8-10.8) X10*3/uL RBC (4.20-5.50) X10*6/uL Hgb (12.0-16.0) g/dl Hct (37.0-47.0) % MCV (80.0-98.0) fL MCH (27.0-33.0) pg MCHC (31.0-35.0) g/dl RDW (11.0-16.0) % Plt Count (160-400) X10*3/uL MPV (9.4-12.3) fL Immature Gran % (Auto) (0.0-0.4) % Neut % (Auto) (45-73) % Lymph % (Auto) (20-40) % [place] % (Auto) (2-11) % Eos % (Auto) (0-4) % Baso % (Auto) (0-2) % Lymph # (Auto) (1.2-4.9) X10*3/uL [place] # (Auto) (0.1-1.2) X10*3/uL Eos # (Auto) (0.0-0.4) X10*3/uL Baso # (Auto) (0.0-0.2) X10*3/uL Abs Immat Gran (auto) (0.00-0.03) X10*3/uL Absolute Neuts (auto) (2.0-8.3) x10*3/uL Absolute Nucleated RBC (0.0-0.012) X10*3/uL Nucleated RBC % (auto) (0.0-0.2) /100WBC Sodium 142 (135-145) mmol/L Potassium 3.8 (3.3-5.1) mmol/L Chloride 108 (96-108) mmol/L Carbon Dioxide 26 (22-29) mmol/L Anion Gap 12 (12-20) BUN 12 (9-16) mg/dL Creatinine 0.72 (0.5-1.4) mg/dL Estim Creat Clear Calc 123.8 Estimated GFR > 60 Random Glucose 96 (60-115) mg/dL Calcium 9.7 (8.4-10.2) mg/dL Magnesium 1.9 (1.6-2.6) mg/dL Total Bilirubin 0.5 (0.0-1.0) mg/dL Direct Bilirubin < 0.2 (0.0-0.5) mg/dL AST 18 (5-31) U/L ALT 15 (0-31) U/L Alkaline Phosphatase 58 (39-117) U/L Total Protein 7.2 (6.5-8.0) g/dL Albumin 4.4 (3.5-5.0) g/dL Lipase 19 (8-78) U/L Beta HCG, Quant < 2 mIU/mL Urine Color Yellow Urine Appearance Cloudy Urine pH 6.5 (5.0-9.0) Ur Specific [place] >= 1.030 H (1.005-1.025) Urine Protein Negative (Neg-Trace) mg/dL Urine Glucose (UA) Negative (Negative) mg/dL Urine Ketones Negative (Negative) mg/dL Urine Blood Negative (Negative) Urine Nitrite Negative (Negative) Ur Leukocyte Esterase Small (1+) H (Negative) Urine RBC 11-20 H (0-2) /HPF Urine WBC 0-5 (0-5) /HPF Ur Squamous Epith Cells 11-20 (0-2) /HPF Urine Bacteria 1+ (None Seen) Hyaline Casts 0-2 (0-2) /LPF Urine Test NEGATIVE (NEGATIVE) 07/27/22 Range/Units 19:29 WBC 8.5 (4.8-10.8) X10*3/uL RBC 4.67 (4.20-5.50) X10*6/uL Hgb 13.4 (12.0-16.0) g/dl Hct 39.6 (37.0-47.0) % MCV 84.8 (80.0-98.0) fL MCH 28.7 (27.0-33.0) pg MCHC 33.8 (31.0-35.0) g/dl RDW 12.1 (11.0-16.0) % Plt Count 316 (160-400) X10*3/uL MPV 10.3 (9.4-12.3) fL Immature Gran % (Auto) 0.1 (0.0-0.4) % Neut % (Auto) 63.4 (45-73) % Lymph % (Auto) 28.6 (20-40) % [place] % (Auto) 6.9 (2-11) % Eos % (Auto) 0.4 (0-4) % Baso % (Auto) 0.6 (0-2) % Lymph # (Auto) 2.4 (1.2-4.9) X10*3/uL [place] # (Auto) 0.6 (0.1-1.2) X10*3/uL Eos # (Auto) 0.0 (0.0-0.4) X10*3/uL Baso # (Auto) 0.1 (0.0-0.2) X10*3/uL Abs Immat Gran (auto) 0.01 (0.00-0.03) X10*3/uL Absolute Neuts (auto) 5.4 (2.0-8.3) x10*3/uL Absolute Nucleated RBC 0.000 (0.0-0.012) X10*3/uL Nucleated RBC % (auto) 0.0 (0.0-0.2) /100WBC Sodium (135-145) mmol/L Potassium (3.3-5.1) mmol/L Chloride (96-108) mmol/L Carbon Dioxide (22-29) mmol/L Anion Gap (12-20) BUN (9-16) mg/dL Creatinine (0.5-1.4) mg/dL Estim Creat Clear Calc Estimated GFR Random Glucose (60-115) mg/dL Calcium (8.4-10.2) mg/dL Magnesium (1.6-2.6) mg/dL Total Bilirubin (0.0-1.0) mg/dL Direct Bilirubin (0.0-0.5) mg/dL AST (5-31) U/L ALT (0-31) U/L Alkaline Phosphatase (39-117) U/L Total Protein (6.5-8.0) g/dL Albumin (3.5-5.0) g/dL Lipase (8-78) U/L Beta HCG, Quant mIU/mL Urine Color Urine Appearance Urine pH (5.0-9.0) Ur Specific [place] (1.005-1.025) Urine Protein (Neg-Trace) mg/dL Urine Glucose (UA) (Negative) mg/dL Urine Ketones (Negative) mg/dL Urine Blood (Negative) Urine Nitrite (Negative) Ur Leukocyte Esterase (Negative) Urine RBC (0-2) /HPF Urine WBC (0-5) /HPF Ur Squamous Epith Cells (0-2) /HPF Urine Bacteria (None Seen) Hyaline Casts (0-2) /LPF Urine Test (NEGATIVE) <Katie Greenberg MD - Last Filed: 07/27/22 20:43> Radiology Impression Discussion of test interpretation with radiology: I have reviewed the radiologist's reading. <Katie Greenberg MD - Last Filed: 07/27/22 20:43> Radiologist Impression: FINDINGS: Lines or devices: None. Nonobstructive bowel gas pattern. Large colonic stool burden in the right hemicolon with multiple punctate radiodensities overlying the bowel which may reflect ingested bowel contents. Supine technique limits evaluation for extraluminal air although no secondary findings are appreciated. No abnormal calcifications. XR/XR KUB IMPRESSION: ? *? Nonobstructive bowel gas pattern. Large colonic stool burden in the right hemicolon. <Katie Greenberg MD - Last Filed: 07/27/22 20:43> Discharge Plan Discharge Clinical Impression: Constipation <SARAH Coker - Last Filed: 07/27/22 19:06> Patient Disposition: Home, Self-Care <SARAH Coker - Last Filed: 07/27/22 19:06> Instructions: Constipation (ED) <SARAH Coker - Last Filed: 07/27/22 19:06> Additional Instructions: Please follow-up with your primary care physician tomorrow. If you have any worsening or new symptoms, please return to the emergency room or call 911 <SARAH Coker - Last Filed: 07/27/22 19:06> Prescriptions: New lactulose 10 gram packet 20 g PO BID Qty: 15 0RF No Action cephalexin [Keflex] 500 mg capsule 500 mg PO QID Qty: 28 0RF doxycycline hyclate 100 mg tablet 100 mg PO BID Qty: 14 0RF doxycycline hyclate 100 mg capsule 100 mg PO BID Qty: 20 0RF Zyrtec 10 mg capsule 10 mg PO DAILY Qty: 14 0RF fluticasone propionate [Flonase Allergy Relief] 50 mcg/actuation spray,suspension 1 spray intranasal Q12H Qty: 16 0RF Rx Instructions: administer into each nostril azithromycin [Zithromax Z-Don] 250 mg tablet See Rx Instructions .ROUTE .COMPLEX Qty: 6 0RF Rx Instructions: take 500 mg today (day 1), then 250 mg for 4 days (days 2-5) prednisone 20 mg tablet 40 mg PO DAILY Qty: 10 0RF albuterol sulfate 90 mcg/actuation HFA aerosol inhaler 1 inh inhalation QID PRN (Reason: shortness of breath or wheezing) Qty: 6.7 0RF amoxicillin-pot clavulanate [Augmentin] 875-125 mg tablet 1 tab PO BID Qty: 14 0RF ibuprofen 600 mg tablet 600 mg PO Q8H PRN <SARAH Coker - Last Filed: 07/27/22 19:06>
[2022-07-27 19:34] LABS: MANUAL DIFF FLAG NO
[2022-07-27 19:38] LABS: Basophils Absolute Auto 0.1 X10*3/uL (0.0-0.2); Basophils Percent Auto 0.6 % (0-2); Eosinophils Percent Auto 0.4 % (0-4); Hematocrit 39.6 % (37.0-47.0); Hemoglobin 13.4 g/dl (12.0-16.0); Imm Gran Abs Auto 0.01 X10*3/uL (0.00-0.03); Imm Gran Pct Auto 0.1 % (0.0-0.4); Lymphocytes Absolute Auto 2.4 X10*3/uL (1.2-4.9); Lymphocytes Percent Auto 28.6 % (20-40); Mean Corpuscular HGB Conc 33.8 g/dl (31.0-35.0); Mean Corpuscular Hemoglobin 28.7 pg (27.0-33.0); Mean Corpuscular Volume 84.8 fL (80.0-98.0); Mean Platelet Volume 10.3 fL (9.4-12.3); Monocytes Absolute Auto 0.6 X10*3/uL (0.1-1.2); Monocytes Percent Auto 6.9 % (2-11); Neutrophils Absolute Auto 5.4 x10*3/uL (2.0-8.3); Neutrophils Percent Auto 63.4 % (45-73); Platelet Count 316 X10*3/uL (160-400); Red Blood Count 4.67 X10*6/uL (4.20-5.50); Red Cell Distribution Width 12.1 % (11.0-16.0); White Blood Count 8.5 X10*3/uL (4.8-10.8)
[2022-07-27 19:40] LABS: Appearance Urine Cloudy; Color Urine Yellow; Glucose Urine UA Negative (Negative); Leukocyte Esterase Urine Small (1+) (Negative); Nitrite Urine Negative (Negative); PH 6.5 (5.0-9.0); Specific Gravity - Urine >= 1.030 (1.005-1.025); UMIC TRIGGER UACC YES; Urine Blood Negative (Negative); Urine Ketones Negative (Negative); Urine Protein Negative (Neg-Trace)
[2022-07-27 19:42] LABS: UPreg QC Valid YES; Urine Pregnancy NEGATIVE (NEGATIVE)
[2022-07-27 20:00] LABS: Alanine Aminotransferase 15 U/L (0-31); Albumin Level 4.4 g/dL (3.5-5.0); Alkaline Phosphatase 58 U/L (39-117); Anion Gap 12 (12-20); Aspartate Amino Transferase 18 U/L (5-31); Bilirubin Direct < 0.2 mg/dL (0.0-0.5); Bilirubin Total 0.5 mg/dL (0.0-1.0); Blood Urea Nitrogen 12 mg/dL (9-16); Calcium 9.7 mg/dL (8.4-10.2); Carbon Dioxide 26 mmol/L (22-29); Chloride 108 mmol/L (96-108); Creatinine Clr Calc Pharmacy 123.8; Estimated Glomerular Filt Rate > 60; Glucose Random 96 mg/dL (60-115); Lipase 19 U/L (8-78); Magnesium 1.9 mg/dL (1.6-2.6); Potassium 3.8 mmol/L (3.3-5.1); Sodium 142 mmol/L (135-145); Total Protein 7.2 g/dL (6.5-8.0)
[2022-07-27 20:02] LABS: Bacteria Urine 1+ (None Seen); Hyaline Casts Urine 0-2 /LPF (0-2); UACC Culture Trigger YES; WBC Urine 0-5 /HPF (0-5)
[2022-07-27 20:02] LABS: HCG Quantitative < 2 mIU/mL
[2022-07-27 20:24] VITALS: BP 111/76; PULSE 82; RESP 12; TEMP 36.7; O2SAT 99
--- NOTE | 2022-07-27 20:25 | PC.NURSE ---
Pt aox4 resting at the bedside in no apparent distress. Reports upper and lower abd pain, 9/10. Last BM one week ago. Took laxatives with no relief. Hx of constipation. Pending KUB x-ray results. MD at bedside.
--- NOTE | 2022-07-27 21:09 | PC.NURSE ---
Discharge instructions reviewed with pt. Pt verbalizes understanding.
== END 2022-07-27 21:10 | disposition home or self-care (01) ==
PROVIDERS: Physician Assistant; Emergency Provider Emergency Medicine; PCP General Practice
DX: K59.00 Constipation, unspecified (principal); Z79.899 Other long term (current) drug therapy
CPT/HCPCS: 36415; 74018; 80048; 80076; 81001; 81025; 83690; 83735; 84702; 85025; 87086; 99283

== ENCOUNTER 2022-11-02 15:48 | Outpatient (REF) | payer MEDICAID, SELFPAY ==
[2022-11-02 18:17] LABS: MANUAL DIFF FLAG NO
[2022-11-02 18:26] LABS: Basophils Percent Auto 0.5 % (0-2); Eosinophils Percent Auto 0.5 % (0-4); Hematocrit 37.9 % (37.0-47.0); Hemoglobin 12.7 g/dl (12.0-16.0); Imm Gran Abs Auto 0.01 X10*3/uL (0.00-0.03); Imm Gran Pct Auto 0.2 % (0.0-0.4); Lymphocytes Absolute Auto 1.9 X10*3/uL (1.2-4.9); Mean Corpuscular HGB Conc 33.5 g/dl (31.0-35.0); Mean Corpuscular Hemoglobin 28.9 pg (27.0-33.0); Mean Corpuscular Volume 86.1 fL (80.0-98.0); Mean Platelet Volume 11.1 fL (9.4-12.3); Monocytes Absolute Auto 0.4 X10*3/uL (0.1-1.2); Monocytes Percent Auto 6.3 % (2-11); Neutrophils Absolute Auto 3.6 x10*3/uL (2.0-8.3); Neutrophils Percent Auto 60.5 % (45-73); Platelet Count 283 X10*3/uL (160-400); Red Cell Distribution Width 12.3 % (11.0-16.0)
[2022-11-02 18:45] LABS: Iron 88 mcg/dL (30-160); Percent Iron Saturation 29 % (15-50); Total Iron Binding Capacity 300 mcg/dL (228-428); Unsaturated Iron Binding 212 ug/dL
[2022-11-02 19:01] LABS: Ferritin 16 ng/mL (10-122); TSH reflex Free T4 1.11 uIU/mL (0.32-4.0)
[2022-11-05 00:43] LABS: HCG Tumor Marker <5 mIU/mL
== END 2022-11-02 15:49 | disposition home or self-care (01) ==
LOC: HO.HHCL 15:48
PROVIDERS: Visit Provider Student in an Organized Health Care Education/Training Program
DX: N92.1 Excessive and frequent menstruation with irregular cycle (principal)
CPT/HCPCS: 36415; 82728; 83540; 84443; 84702; 85025

== ENCOUNTER 2022-11-06 13:25 | Outpatient (REF) | payer MEDICAID, SELFPAY ==
--- NOTE | ~2022-11-06 | US_ITS ---
EXAMINATION: US PELVIS CLINICAL INFORMATION: Menorrhagia and irregular menstrual cycle COMPARISON: Previous CT of the abdomen and pelvis April 2020 TECHNIQUE: Ultrasound of the pelvis is performed using both transabdominal and transvaginal transducers along with Doppler. Transvaginal imaging is performed due to inadequate visualization transabdominally. FINDINGS: The uterus is anteverted and measures 7.2 x 3.9 x 5 cm in dimension. Uterine echotexture is slightly heterogeneous. No definite focal uterine lesion. Endometrial thickness is normal measuring 0.3 cm. The ovaries are normal. The right ovary measures 3.9 x 1 4 x 2.1 cm. The left ovary measures 4.3 x 2.2 x 2.5 cm. There is a 2.1 x 1.4 x 1.6 mm left ovarian cyst. No imaging follow-up recommended. There is a small amount of fluid in the pelvis. US/US pelvic and transvaginal IMPRESSION: Heterogeneous appearing uterus. Normal thickness endometrium.
== END 2022-11-06 13:26 | disposition home or self-care (01) ==
LOC: HO.US 13:25
PROVIDERS: PCP General Practice; Visit Provider Student in an Organized Health Care Education/Training Program
DX: N92.1 Excessive and frequent menstruation with irregular cycle (principal)
CPT/HCPCS: 76830; 76856

== ENCOUNTER 2022-12-14 16:44 | Outpatient (REF) | payer MEDICAID, SELFPAY ==
[2022-12-15 04:35] LABS: CT PCR NOT DETECTED (Not Detect.); NG PCR NOT DETECTED (Not Detect.)
[2022-12-15 15:43] LABS: BV Int Neg Control Negative (Negative); BV Int Pos Control Positive (Positive)
== END 2022-12-14 16:45 | disposition home or self-care (01) ==
LOC: HO.HHCLNP 16:44
PROVIDERS: Visit Provider Advanced Practice Midwife
DX: Z11.3 Encounter for screening for infections with a predominantly sexual mode of transmission (principal)
CPT/HCPCS: 0353U; 87480; 87510; 87660

== ENCOUNTER 2023-01-02 18:17 | Outpatient (REF) | payer MEDICAID, SELFPAY ==
[2023-01-03 15:13] LABS: BV Int Neg Control Negative (Negative); BV Int Pos Control Positive (Positive)
== END 2023-01-02 18:18 | disposition home or self-care (01) ==
LOC: HO.HHCLNP 18:17
PROVIDERS: Visit Provider Student in an Organized Health Care Education/Training Program
DX: R39.9 Unspecified symptoms and signs involving the genitourinary system (principal)
CPT/HCPCS: 87480; 87510; 87660

== ENCOUNTER 2023-03-24 19:36 | Emergency (ER) | payer MEDICAID, SELFPAY ==
[2023-03-24 19:43] VITALS: BP 133/71; PULSE 81; RESP 18; TEMP 36.2; O2SAT 99; BMI 33.8
[2023-03-24 20:11] LABS: MANUAL DIFF FLAG NO
[2023-03-24 20:12] LABS: Basophils Absolute Auto 0.1 X10*3/uL (0.0-0.2); Basophils Percent Auto 0.7 % (0-2); Eosinophils Absolute Auto 0.1 X10*3/uL (0.0-0.4); Eosinophils Percent Auto 1.6 % (0-4); Hematocrit 37.6 % (37.0-47.0); Hemoglobin 12.4 g/dl (12.0-16.0); Imm Gran Abs Auto 0.01 X10*3/uL (0.00-0.03); Imm Gran Pct Auto 0.1 % (0.0-0.4); Lymphocytes Absolute Auto 2.7 X10*3/uL (1.2-4.9); Lymphocytes Percent Auto 38.6 % (20-40); Mean Corpuscular Hemoglobin 28.4 pg (27.0-33.0); Mean Platelet Volume 10.4 fL (9.4-12.3); Monocytes Absolute Auto 0.5 X10*3/uL (0.1-1.2); Monocytes Percent Auto 6.7 % (2-11); Neutrophils Absolute Auto 3.6 x10*3/uL (2.0-8.3); Neutrophils Percent Auto 52.3 % (45-73); Platelet Count 274 X10*3/uL (160-400); Red Blood Count 4.37 X10*6/uL (4.20-5.50); Red Cell Distribution Width 12.3 % (11.0-16.0)
--- NOTE | 2023-03-24 20:24 | MHC.EDTECH ---
Patient blood drawn and urine sample collected and sent to lab .
[2023-03-24 20:25] LABS: Appearance Urine Cloudy; Color Urine Orange; Glucose Urine UA Negative (Negative); Leukocyte Esterase Urine Negative (Negative); Nitrite Urine Positive (Negative); Specific Gravity - Urine 1.025 (1.005-1.025); UMIC TRIGGER UACC YES; Urine Blood Large (3+) (Negative); Urine Ketones Negative (Negative); Urine Protein 100 (2+) mg/dL (Neg-Trace)
[2023-03-24 20:34] LABS: Anion Gap 13 (12-20); Blood Urea Nitrogen 12 mg/dL (9-16); Calcium 9.2 mg/dL (8.4-10.2); Carbon Dioxide 22 mmol/L (22-29); Chloride 111 mmol/L (96-108); Creatinine Clr Calc Pharmacy 102.2; Estimated Glomerular Filt Rate > 60; Glucose Random 88 mg/dL (60-115); Potassium 3.6 mmol/L (3.3-5.1); Sodium 142 mmol/L (135-145)
[2023-03-24 20:35] LABS: HCG Quantitative < 2 mIU/mL
[2023-03-24 20:47] LABS: Bacteria Urine 4+ (None Seen); Hyaline Casts Urine 0-2 /LPF (0-2); RBC Urine >20 /HPF (0-2); UACC Culture Trigger YES
--- NOTE | 2023-03-24 21:27 | ED.FEMALEGU ---
HPI - Female Genitourinary General Chief complaint: Vaginal Bleeding Stated complaint: vaginal bleeding for a couple of weeks now Time Seen by Provider: 03/24/23 21:22 Source: patient Mode of arrival: ambulatory Limitations: no limitations History of Present Illness HPI Narrative: Patient been having intermittent vaginal bleeding for last 7 months has norplant placed 1 year ago for last 2 weeks patient is bleeding heavy changing over 6-7 pads a day unable to see firearms specialist yet no dizziness no chest pain or palpitation also patient complaining of supra pubic pain does have a history of small ovarian cyst slight dysuria no frequency or hematuria no flank pain no nausea no vomiting no fever Related Data Home Medications Medication Instructions Recorded Confirmed ibuprofen 600 mg tablet 600 mg PO Q8H PRN 01/18/21 Previous Rx's Medication Instructions Recorded cephalexin 500 mg capsule (Keflex) 500 mg PO QID #28 caps 05/21/20 doxycycline hyclate 100 mg tablet 100 mg PO BID #14 tabs 05/21/20 doxycycline hyclate 100 mg capsule 100 mg PO BID #20 caps 07/22/20 albuterol sulfate 90 mcg/actuation 1 inh inhalation QID PRN shortness 03/12/21 aerosol inhaler of breath or wheezing #6.7 grams amoxicillin 875 mg-potassium 1 tab PO BID #14 tabs 03/12/21 clavulanate 125 mg tablet (Augmentin) azithromycin 250 mg tablet See Rx Instructions PO .COMPLEX #6 03/12/21 (Zithromax Z-Don) tabs prednisone 20 mg tablet 40 mg (2 x 20 mg) PO DAILY #10 tabs 03/12/21 cetirizine 10 mg capsule (Zyrtec) 10 mg PO DAILY #14 caps 08/22/21 fluticasone propionate 50 1 spray intranasal Q12H #16 grams 08/22/21 mcg/actuation nasal spray,suspension (Flonase Allergy Relief) lactulose 10 gram oral packet 20 g PO BID #15 ea 07/27/22 cefuroxime axetil 250 mg tablet 250 mg PO BID 7 days #14 tabs 03/24/23 ibuprofen 600 mg tablet 600 mg PO Q6H PRN fever or pain 03/24/23 #30 tabs Allergies Allergy/AdvReac Type Severity Reaction Status Date / Time No Known Allergies Allergy Verified 03/24/23 19:43 Review of Systems Review of Systems: Yes all other systems are reviewed and are negative [facility] Past Medical History Medical History Cellulitis of umbilicus Asthma Surgical History Hx of umbilical hernia repair Social History Social History Alcohol intake: never Advance Directives: No Advance Directives Information Provided: Yes Physical Exam Vital Signs: Vital Signs: Last Vital Signs Temp 97.1 F 03/24/23 19:43 Pulse 81 03/24/23 19:43 Resp 18 03/24/23 19:43 BP 133/71 03/24/23 19:43 Pulse Ox 99 03/24/23 19:43 O2 Del Method Room Air 03/24/23 19:43 BMI result Body Mass Index 33.8 Appearance: Alert. Oriented X3. No acute distress. Eyes: No pallor or icterus ENT: Pharynx normal. Oral Mucosa moist Neck: Normal inspection. Neck supple. CVS: Normal heart rate and rhythm. Pulses normal. Respiratory: No respiratory distress. Equal air entry bilateral, Abdomen: Soft, mild suprapubic tenderness, Bowel sounds are present, no mass palpable, no CVA tenderness vag exam: Small amount of blood from the os no blood clot seen Skin: Skin warm and dry. Normal skin color. Normal skin turgor. Extremities: No lower extremity edema. No calf tenderness Neuro: Oriented X 3. Medical Decision Making Medical Decision Making [facility] Narrative: Patient with DUB case discussed with Dr. Pickens , should get Norplant removed as that could be withdrawal bleeding will see her in office as outpatient patient does have UTI with nitrite positive urine patient had does have some dysuria no frequency, H&H stable Differential Diagnosis Differential Diagnoses: The differential diagnosis associated with the presentation includes DUB/UTI/ovarian cyst Admission/Observation Consideration of admission/observation: Escalation of care including admission/observation considered Lab Data [facility] Lab Attestation statement: I reviewed the patient's lab results. 03/24/23 20:07 03/24/23 20:07 Labs: Lab Results 03/24/23 03/24/23 Range/Units 20:07 20:17 WBC 7.0 (4.8-10.8) X10*3/uL RBC 4.37 (4.20-5.50) X10*6/uL Hgb 12.4 (12.0-16.0) g/dl Hct 37.6 (37.0-47.0) % MCV 86.0 (80.0-98.0) fL MCH 28.4 (27.0-33.0) pg MCHC 33.0 (31.0-35.0) g/dl RDW 12.3 (11.0-16.0) % Plt Count 274 (160-400) X10*3/uL MPV 10.4 (9.4-12.3) fL Immature Gran % (Auto) 0.1 (0.0-0.4) % Neut % (Auto) 52.3 (45-73) % Lymph % (Auto) 38.6 (20-40) % [place] % (Auto) 6.7 (2-11) % Eos % (Auto) 1.6 (0-4) % Baso % (Auto) 0.7 (0-2) % Lymph # (Auto) 2.7 (1.2-4.9) X10*3/uL [place] # (Auto) 0.5 (0.1-1.2) X10*3/uL Eos # (Auto) 0.1 (0.0-0.4) X10*3/uL Baso # (Auto) 0.1 (0.0-0.2) X10*3/uL Abs Immat Gran (auto) 0.01 (0.00-0.03) X10*3/uL Absolute Neuts (auto) 3.6 (2.0-8.3) x10*3/uL Absolute Nucleated RBC 0.000 (0.0-0.012) X10*3/uL Nucleated RBC % (auto) 0.0 (0.0-0.2) /100WBC Sodium 142 (135-145) mmol/L Potassium 3.6 (3.3-5.1) mmol/L Chloride 111 H (96-108) mmol/L Carbon Dioxide 22 (22-29) mmol/L Anion Gap 13 (12-20) BUN 12 (9-16) mg/dL Creatinine 0.86 (0.5-1.4) mg/dL Estim Creat Clear Calc 102.2 Estimated GFR > 60 Random Glucose 88 (60-115) mg/dL Calcium 9.2 (8.4-10.2) mg/dL Beta HCG, Quant < 2 mIU/mL Urine Color [place] Urine Appearance Cloudy Urine pH 6.0 (5.0-9.0) Ur Specific [place] 1.025 (1.005-1.025) Urine Protein 100 (2+) H (Neg-Trace) mg/dL Urine Glucose (UA) Negative (Negative) mg/dL Urine Ketones Negative (Negative) mg/dL Urine Blood Large (3+) H (Negative) Urine Nitrite Positive H (Negative) Ur Leukocyte Esterase Negative (Negative) Urine RBC >20 H (0-2) /HPF Urine WBC 11-20 H (0-5) /HPF Ur Squamous Epith Cells 6-10 (0-2) /HPF Urine Bacteria 4+ (None Seen) Hyaline Casts 0-2 (0-2) /LPF Discharge Plan Discharge Clinical Impression: Dysfunctional uterine bleeding, UTI (urinary tract infection) Patient Disposition: Home, Self-Care Instructions: Dysfunctional Uterine Bleeding (ED), Urinary Tract Infection in Women (ED) Additional Instructions: Take antibiotics and pain medication as prescribed See OB doctor next week for possible removal of norplant at that may be the cause of increased bleeding Prescriptions: New cefuroxime axetil 250 mg tablet 250 mg PO BID 7 Days Qty: 14 0RF ibuprofen 600 mg tablet 600 mg PO Q6H PRN (Reason: fever or pain) Qty: 30 0RF No Action cephalexin [Keflex] 500 mg capsule 500 mg PO QID Qty: 28 0RF doxycycline hyclate 100 mg tablet 100 mg PO BID Qty: 14 0RF doxycycline hyclate 100 mg capsule 100 mg PO BID Qty: 20 0RF Zyrtec 10 mg capsule 10 mg PO DAILY Qty: 14 0RF fluticasone propionate [Flonase Allergy Relief] 50 mcg/actuation spray,suspension 1 spray intranasal Q12H Qty: 16 0RF Rx Instructions: administer into each nostril azithromycin [Zithromax Z-Don] 250 mg tablet See Rx Instructions .ROUTE .COMPLEX Qty: 6 0RF Rx Instructions: take 500 mg today (day 1), then 250 mg for 4 days (days 2-5) prednisone 20 mg tablet 40 mg PO DAILY Qty: 10 0RF albuterol sulfate 90 mcg/actuation HFA aerosol inhaler 1 inh inhalation QID PRN (Reason: shortness of breath or wheezing) Qty: 6.7 0RF amoxicillin-pot clavulanate [Augmentin] 875-125 mg tablet 1 tab PO BID Qty: 14 0RF lactulose 10 gram packet 20 g PO BID Qty: 15 0RF ibuprofen 600 mg tablet 600 mg PO Q8H PRN Referrals: Veto Pickens MD [Physician] - 3 days
--- NOTE | 2023-03-24 22:28 | P.CONOB_ITS ---
SALES OPERATIONS DIRECTOR - CN: HPI Data of Consult Consult date: 03/24/23 Primary Care Provider: Nikki Cervantes MD Consult Narrative Narrative: I was consulted on Tracie Washington who is a 22 year old female presented to emergency room with vaginal bleeding on Nexplanon of 7 months duration. HCG done in the emergency room was less than 2, H&H normal cc:: CC: OB [facility] Past Medical History Medical History Asthma Cellulitis of umbilicus Surgical History Surgical History Hx of umbilical hernia repair Social History Social History Alcohol intake: never Advance Directives: No Advance Directives Information Provided: Yes Meds Allergies Allergy/AdvReac Type Severity Reaction Status Date / Time No Known Allergies Allergy Verified 03/24/23 19:43 Home Medications Medication Instructions Recorded Confirmed Last Taken Type ibuprofen 600 mg tablet 600 mg PO Q8H PRN 01/18/21 Unknown History SALES OPERATIONS DIRECTOR Physical Exam Vitals Vital signs: Temp Pulse Resp BP Pulse Ox O2 Del Method 97.1 F 81 18 133/71 99 Room Air 03/24/23 19:43 03/24/23 19:43 03/24/23 19:43 03/24/23 19:43 03/24/23 19:43 03/24/23 19:43 BMI result Body Mass Index 33.8 SALES OPERATIONS DIRECTOR - Results Labs 03/24/23 20:07 03/24/23 20:07 Labs: Short CBC 03/24/23 Range/Units 20:07 WBC 7.0 (4.8-10.8) X10*3/uL Hgb 12.4 (12.0-16.0) g/dl Hct 37.6 (37.0-47.0) % Plt Count 274 (160-400) X10*3/uL BMP 03/24/23 20:07 Sodium 142 Potassium 3.6 Chloride 111 H Carbon Dioxide 22 BUN 12 Creatinine 0.86 Calcium 9.2 Urine 03/24/23 Range/Units 20:17 Urine Color [place] Urine Appearance Cloudy Urine pH 6.0 (5.0-9.0) Ur Specific [place] 1.025 (1.005-1.025) Urine Protein 100 (2+) H (Neg-Trace) mg/dL Urine Glucose (UA) Negative (Negative) mg/dL Assessment and Plan (1) Abnormal uterine bleeding (AUB): Status: Acute HCG less than 2, no heavy vaginal bleeding, H&H stable. Recommended to Dr. Fernandez the following: instructions to be given to the patient to schedule a Follow-up appointment in the outpatient office with her OBGYN or in our office in 24-48 hour to discuss different options of control possible removal of Nexplanon, the patient is to come back to emergency room in case of persistence of heavy vaginal bleeding. I spent a total of 20 minutes reviewing the chart, communicating the emergency room provider and documenting in the medical record
--- NOTE | 2023-03-24 22:33 | PC.NURSE ---
Pt ca&ox4, no signs of distress. Pts family at bedside. Pt reports 8/10 abdm pain that started 5 months ago. Pt reports dizziness, weakness, and going thru 3-4 super pads/hr. Plan of care ongoing.
[2023-03-24] MEDS: Ibuprofen 600 MG TABLET PO (22:57)
[2023-03-24] MEDS: cefuroxime axetiL 250 MG TABLET PO (22:58)
--- NOTE | 2023-03-24 23:00 | PC.NURSE ---
Pt ca&ox4, no signs of distress. Pt medicated per mar. Plan of care ongoing.
== END 2023-03-24 23:46 | disposition home or self-care (01) ==
PROVIDERS: Emergency Provider Internal Medicine; PCP General Practice
DX: N93.8 Other specified abnormal uterine and vaginal bleeding (principal); N39.0 Urinary tract infection, site not specified; R10.30 Lower abdominal pain, unspecified
CPT/HCPCS: 36415; 80048; 81001; 84702; 85025; 87086; 99283; 99284

== ENCOUNTER 2023-06-25 14:22 | Outpatient (REF) | payer MEDICAID, SELFPAY ==
[2023-06-25 16:14] LABS: MANUAL DIFF FLAG NO
[2023-06-25 16:17] LABS: Basophils Percent Auto 0.3 % (0-2); Eosinophils Percent Auto 0.1 % (0-4); Hematocrit 40.3 % (37.0-47.0); Hemoglobin 13.4 g/dl (12.0-16.0); Imm Gran Abs Auto 0.03 X10*3/uL (0.00-0.03); Imm Gran Pct Auto 0.3 % (0.0-0.4); Lymphocytes Absolute Auto 2.4 X10*3/uL (1.2-4.9); Lymphocytes Percent Auto 27.2 % (20-40); Mean Corpuscular HGB Conc 33.3 g/dl (31.0-35.0); Mean Corpuscular Hemoglobin 28.6 pg (27.0-33.0); Mean Corpuscular Volume 86.1 fL (80.0-98.0); Mean Platelet Volume 10.7 fL (9.4-12.3); Monocytes Absolute Auto 0.5 X10*3/uL (0.1-1.2); Monocytes Percent Auto 5.3 % (2-11); Neutrophils Percent Auto 66.8 % (45-73); Platelet Count 322 X10*3/uL (160-400); Red Blood Count 4.68 X10*6/uL (4.20-5.50); Red Cell Distribution Width 12.3 % (11.0-16.0)
[2023-06-25 16:45] LABS: Alanine Aminotransferase 22 U/L (0-31); Albumin Level 4.3 g/dL (3.5-5.0); Alkaline Phosphatase 57 U/L (39-117); Anion Gap 9 (12-20); Aspartate Amino Transferase 26 U/L (5-31); Bilirubin Total 0.3 mg/dL (0.0-1.0); Blood Urea Nitrogen 11 mg/dL (9-16); Calcium 9.6 mg/dL (8.4-10.2); Carbon Dioxide 24 mmol/L (22-29); Chloride 109 mmol/L (96-108); Cholesterol 179 mg/dL (<200); Estimated Glomerular Filt Rate > 60; Glucose Random 91 mg/dL (60-115); HDL Cholesterol 42 mg/dL (>40); LDL Cholesterol Calculated 118 mg/dL (<100); Potassium 3.6 mmol/L (3.3-5.1); Sodium 138 mmol/L (135-145); Total Protein 7.6 g/dL (6.5-8.0); Triglycerides 96 mg/dL (<150)
[2023-06-25 16:50] LABS: TSH reflex Free T4 0.08 uIU/mL (0.32-4.0)
[2023-06-25 18:09] LABS: Free T4 (Free Thyroxine) 0.97 ng/dL (0.71-1.85)
== END 2023-06-25 14:23 | disposition home or self-care (01) ==
LOC: HO.HHCL 14:22
PROVIDERS: Visit Provider General Practice
DX: R03.0 Elevated blood-pressure reading, without diagnosis of hypertension (principal)
CPT/HCPCS: 36415; 80053; 80061; 84439; 84443; 85025

== ENCOUNTER 2023-07-27 12:51 | Outpatient (REF) | payer MEDICAID, SELFPAY ==
[2023-07-28 10:34] LABS: Triiodothyronine T3 Total 131 ng/dL (76-181)
== END 2023-07-27 12:52 | disposition home or self-care (01) ==
LOC: HO.HHCL 12:51
PROVIDERS: Visit Provider General Practice
DX: R79.89 Other specified abnormal findings of blood chemistry (principal)
CPT/HCPCS: 36415; 84480

== ENCOUNTER 2024-01-07 09:37 | Outpatient (REF) | payer MEDICAID, SELFPAY ==
[2024-01-07 12:30] LABS: TSH reflex Free T4 0.85 uIU/mL (0.32-4.0)
[2024-01-07 15:12] LABS: CT PCR NOT DETECTED (Not Detect.); NG PCR NOT DETECTED (Not Detect.)
== END 2024-01-07 09:38 | disposition home or self-care (01) ==
LOC: HO.HHCL 09:37
PROVIDERS: Visit Provider Advanced Practice Midwife
DX: N93.9 Abnormal uterine and vaginal bleeding, unspecified (principal)
CPT/HCPCS: 36415; 84443; 87491; 87591

== ENCOUNTER 2024-02-01 11:51 | Outpatient (REF) | payer MEDICAID, SELFPAY ==
[2024-02-05 07:53] LABS: Immunoglobulin A 215 mg/dL (47-310); Transglutaminase IgA <1.0 U/mL
== END 2024-02-01 11:52 | disposition home or self-care (01) ==
LOC: HO.HHCL 11:51
PROVIDERS: Visit Provider Internal Medicine
DX: R10.13 Epigastric pain (principal); K59.09 Other constipation
CPT/HCPCS: 36415; 82784; 86364

== ENCOUNTER 2024-02-25 10:46 | Emergency (ER) | payer MEDICAID, SELFPAY ==
--- NOTE | ~2024-02-25 | XR_ITS ---
EXAMINATION: XR CHEST CLINICAL INFORMATION: Cough, pneumonia. COMPARISON: 03/12/2021. TECHNIQUE: Frontal view of the chest was obtained. FINDINGS: Lung volumes are low. There is no gross pneumothorax. Cardiac silhouette difficult to evaluate due to low lung volumes and bilateral parenchymal disease. Increased left basilar opacity and small left pleural effusion. XR/XR chest 1V IMPRESSION: Increased left basilar consolidation concerning for pneumonia. Small left pleural effusion. Low lung volumes. This study was presented today, February 25, 2024, for interpretation. Stat results provided at this time as requested by referring provider. Electronically signed by: Argelia Borden MD 02/25/2024 11:47 AM EST
[2024-02-25 10:57] VITALS: BP 147/96; PULSE 96; RESP 16; TEMP 36.4; O2SAT 98; BMI 34.7
--- NOTE | 2024-02-25 11:03 | ED_ITS ---
HPI - General Adult General Chief complaint: Upper Respiratory Symptoms Stated complaint: diff breathing Time Seen by Provider: 02/25/24 11:57 Source: patient Mode of arrival: ambulatory Limitations: no limitations History of Present Illness ED Provider: Lavon GONSALEZ HPI narrative: 23 yold female with pmh of asthma presents to the ED cough for one month with green phleghm without any leg swelling, pitting edema, or calf pain. patient states wheezing and chest pain. NO releif with asthma pump. Patient never had xray. Related Data Home Medications ?Medication ?Instructions ?Recorded ?Confirmed ibuprofen 600 mg tablet 600 mg PO Q8H PRN 01/18/21 Previous Rx's ?Medication ?Instructions ?Recorded cephalexin 500 mg capsule (Keflex) 500 mg PO QID #28 caps 05/21/20 doxycycline hyclate 100 mg tablet 100 mg PO BID #14 tabs 05/21/20 doxycycline hyclate 100 mg capsule 100 mg PO BID #20 caps 07/22/20 albuterol sulfate 90 mcg/actuation 1 inh inhalation QID PRN shortness 03/12/21 aerosol inhaler of breath or wheezing #6.7 grams amoxicillin 875 mg-potassium 1 tab PO BID #14 tabs 03/12/21 clavulanate 125 mg tablet (Augmentin) azithromycin 250 mg tablet See Rx Instructions PO .COMPLEX #6 03/12/21 (Zithromax Z-Don) tabs prednisone 20 mg tablet 40 mg (2 x 20 mg) PO DAILY #10 tabs 03/12/21 cetirizine 10 mg capsule (Zyrtec) 10 mg PO DAILY #14 caps 08/22/21 fluticasone propionate 50 1 spray intranasal Q12H #16 grams 08/22/21 mcg/actuation nasal spray,suspension (Flonase Allergy Relief) lactulose 10 gram oral packet 20 g PO BID #15 ea 07/27/22 cefuroxime axetil 250 mg tablet 250 mg PO BID 7 days #14 tabs 03/24/23 ibuprofen 600 mg tablet 600 mg PO Q6H PRN fever or pain 03/24/23 #30 tabs amoxicillin 875 mg-potassium 1 tab PO Q12H 5 days #10 tabs 02/25/24 clavulanate 125 mg tablet doxycycline hyclate 100 mg capsule 100 mg PO BID 7 days #14 caps 02/25/24 prednisone 20 mg tablet 40 mg (2 x 20 mg) PO DAILY 5 days 02/25/24 #10 tabs Allergies Allergy/AdvReac Type Severity Reaction Status Date / Time No Known Allergies Allergy Verified 02/25/24 11:00 Review of Systems Review of Systems: cough, yellow phleghm, wheezing Yes all other systems are reviewed and are negative [facility] Past Medical History Medical History Cellulitis of umbilicus Asthma Surgical History Hx of umbilical hernia repair Social History Social History Alcohol intake: never Advance Directives: No Advance Directives Information Provided: Yes Physical Exam ED Vital Signs: Vital Signs - 24 hr 02/25/24 10:57 02/25/24 12:08 Temperature 97.6 F 97.6 F Pulse Rate 96 96 Respiratory Rate 16 16 Blood Pressure 147/96 H 147/96 H Pulse Oximetry 98 98 Oxygen Delivery Method Room Air Room Air BMI result Body Mass Index 34.7 Const General: cooperative, healthy appearing, comfortable, no acute distress, well developed, alert, awake and Physically active Orientation/consciousness: patient oriented x3 HENMT Head: Yes normal to inspection, Yes No palpable skull fracture present, Yes normocephalic and Yes atraumatic Throat: Yes posterior oropharynx normal, Yes tonsils normal and Yes uvula midline Eyes General: appearance normal, both eyes and all related structures Neck Neck: Yes normal visual inspection, Yes full ROM, Yes no lymphadenopathy, Yes no meningeal signs, Yes trachea midline, Yes supple, No anterior neck swelling and No tender Chest Chest palpation & inspection: normal inspection of the chest and normal palpation of entire chest wall Resp Effort & Inspection: normal respiratory effort and able to speak in complete sentences Auscultation: clear to auscultation bilaterally Cardio Jugular venous distension: no JVD Heart sounds: S1 normal heart sound present and S2 normal heart sound present GI Inspection: Yes normal to inspection Palpation (GI): Soft to palpation, not firm, nontender, no guarding and not rigid General: Yes no CVA tenderness Back/Spine/Pelvis Back: no CVA tenderness and No back tenderness Skin General skin exam: no rashes or lesions noted, elasticity normal and turgor normal Neuro General: patient oriented x3, gait normal, tone normal, moves all extremities, Normal light touch and pain sensation, no meningeal signs, no focal motor deficits and CN's II-XI intact bilaterally Extrem General: Yes normal to inspection, Yes full ROM and Yes capillary refill normal Psych Appearance: grossly normal, well kempt and not disheveled Course Course Course Narrative: RME: 23 yold female presents to the ED for coughing with green phleghm since january 31. Patient denies any pleurisy, leg swelling, calf pain, pitting edema. Patient tested negative for COVID RSV and influenza. Patient states primary care provider refused to do chest x-ray. Lungs are clear lower extremity negative for pitting edema or calf pain. Heart sounds normal. X-ray ordered. Medical Decision Making Medical Decision Making [facility] Narrative: 23-year-old female presents to ED for cough with 1 month with green phlegm and shortness of breath. Chest x-ray came back positive for pneumonia. Patient is not hypoxic. Vital signs are stable. Patient will be discharged with antibiotics. Patient also will be discharged with steroid due to history of asthma. Patient informed to continue taking albuterol. Patient given copy of x-ray informed to follow up with primary care provider. Patient explained worrisome signs and return to the ED immediately. Not suspecting PE, OK, CHF, ACS, myocarditits, or pericarditis. Differential Diagnosis Differential Diagnoses: The differential diagnosis associated with the presentation includes (Pneumonia, COVID, influenza, strep) Admission/Observation Consideration of admission/observation: Escalation of care including admission/observation considered Independent Interpretation I performed an independent interpretation of an: Plain X-Ray Radiology Impression Discussion of test interpretation with radiology: I have reviewed the radiologist's reading. Independent Historian Clinical information obtained from an independent historian. History obtained from or confirmed by: Other (patient) External Record Review External record reviewed: Other (prior) Prescription Management I considered prescription management with: Antibiotic and Other (steroids) Discharge Plan Discharge Clinical Impression: Pneumonia Patient Disposition: Home, Self-Care Instructions: Community Acquired Pneumonia (ED) Additional Instructions: Recommend follow-up with primary care provider. Return to the ED for any chest pain, shortness of breath, coughing up blood, calf pain, leg swelling, fever, ch ills, weakness, dizziness, chest pain/shortness of breath on inspiration, or any other concerning symptoms. Continue using albuterol inhaler as needed. XR/XR chest 1V IMPRESSION: Increased left basilar consolidation concerning for pneumonia. Small left pleural effusion. Low lung volumes. This study was presented today, February 25, 2024, for interpretation. Stat results provided at this time as requested by referring provider. Electronically signed by: Argelia Borden MD 02/25/2024 11:47 AM [facility] Prescriptions: New doxycycline hyclate 100 mg capsule 100 mg PO BID 7 Days Qty: 14 0RF amoxicillin-pot clavulanate 875-125 mg tablet 1 tab PO Q12H 5 Days Qty: 10 0RF prednisone 20 mg tablet 40 mg PO DAILY 5 Days Qty: 10 0RF No Action cephalexin [Keflex] 500 mg capsule 500 mg PO QID Qty: 28 0RF doxycycline hyclate 100 mg tablet 100 mg PO BID Qty: 14 0RF doxycycline hyclate 100 mg capsule 100 mg PO BID Qty: 20 0RF Zyrtec 10 mg capsule 10 mg PO DAILY Qty: 14 0RF fluticasone propionate [Flonase Allergy Relief] 50 mcg/actuation spray,suspension 1 spray intranasal Q12H Qty: 16 0RF Rx Instructions: administer into each nostril azithromycin [Zithromax Z-Don] 250 mg tablet See Rx Instructions .ROUTE .COMPLEX Qty: 6 0RF Rx Instructions: take 500 mg today (day 1), then 250 mg for 4 days (days 2-5) prednisone 20 mg tablet 40 mg PO DAILY Qty: 10 0RF albuterol sulfate 90 mcg/actuation HFA aerosol inhaler 1 inh inhalation QID PRN (Reason: shortness of breath or wheezing) Qty: 6.7 0RF amoxicillin-pot clavulanate [Augmentin] 875-125 mg tablet 1 tab PO BID Qty: 14 0RF lactulose 10 gram packet 20 g PO BID Qty: 15 0RF cefuroxime axetil 250 mg tablet 250 mg PO BID 7 Days Qty: 14 0RF ibuprofen 600 mg tablet 600 mg PO Q6H PRN (Reason: fever or pain) Qty: 30 0RF ibuprofen 600 mg tablet 600 mg PO Q8H PRN Referrals: Nikki Cervantes MD [Primary Care Provider] - (Pneumonia) Stand Alone Forms: Work/School Release Interventions: ED Discharge Assessment Last Done: 02/25/24 12:08 Discharge Date/Time: 02/25/24 12:09 Print Language: Maori
[2024-02-25 12:08] VITALS: BP 147/96; PULSE 96; RESP 16; TEMP 36.4; O2SAT 98
== END 2024-02-25 12:09 | disposition home or self-care (01) ==
PROVIDERS: Emergency Provider Student in an Organized Health Care Education/Training Program; PCP General Practice
DX: J18.9 Pneumonia, unspecified organism (principal); R05.9 Cough, unspecified; J45.909 Unspecified asthma, uncomplicated; Z79.899 Other long term (current) drug therapy
CPT/HCPCS: 71045; 99282; 99283

== ENCOUNTER 2024-03-27 11:01 | Outpatient (REF) | payer MEDICAID, SELFPAY ==
[2024-03-27 12:51] LABS: MANUAL DIFF FLAG NO
[2024-03-27 13:06] LABS: Basophils Percent Auto 0.7 % (0-2); Eosinophils Absolute Auto 0.1 X10*3/uL (0.0-0.4); Eosinophils Percent Auto 0.9 % (0-4); Hematocrit 39.2 % (37.0-47.0); Hemoglobin 12.9 g/dl (12.0-16.0); Imm Gran Abs Auto 0.02 X10*3/uL (0.00-0.03); Imm Gran Pct Auto 0.3 % (0.0-0.4); Lymphocytes Absolute Auto 2.1 X10*3/uL (1.2-4.9); Lymphocytes Percent Auto 35.8 % (20-40); Mean Corpuscular HGB Conc 32.9 g/dl (31.0-35.0); Mean Corpuscular Hemoglobin 28.5 pg (27.0-33.0); Mean Corpuscular Volume 86.7 fL (80.0-98.0); Mean Platelet Volume 10.7 fL (9.4-12.3); Monocytes Absolute Auto 0.4 X10*3/uL (0.1-1.2); Neutrophils Absolute Auto 3.2 x10*3/uL (2.0-8.3); Neutrophils Percent Auto 55.3 % (45-73); Platelet Count 357 X10*3/uL (160-400); Red Blood Count 4.52 X10*6/uL (4.20-5.50); Red Cell Distribution Width 12.2 % (11.0-16.0); White Blood Count 5.8 X10*3/uL (4.8-10.8)
[2024-03-27 13:21] LABS: Alanine Aminotransferase 19 U/L (0-31); Albumin Level 4.1 g/dL (3.5-5.0); Alkaline Phosphatase 58 U/L (39-117); Anion Gap 9 (12-20); Aspartate Amino Transferase 25 U/L (5-31); Bilirubin Total 0.2 mg/dL (0.0-1.0); Blood Urea Nitrogen 12 mg/dL (9-16); Calcium 9.7 mg/dL (8.4-10.2); Carbon Dioxide 27 mmol/L (22-29); Chloride 109 mmol/L (96-108); Estimated Glomerular Filt Rate > 60; Glucose Random 86 mg/dL (60-115); Potassium 3.9 mmol/L (3.3-5.1); Sodium 141 mmol/L (135-145); Total Protein 7.2 g/dL (6.5-8.0)
[2024-03-27 13:39] LABS: HCG Quantitative < 2 mIU/mL; TSH reflex Free T4 0.64 uIU/mL (0.32-4.0)
== END 2024-03-27 11:02 | disposition home or self-care (01) ==
LOC: HO.HHCL 11:01
PROVIDERS: Visit Provider General Practice
DX: K62.5 Hemorrhage of anus and rectum (principal); N92.1 Excessive and frequent menstruation with irregular cycle
CPT/HCPCS: 36415; 80053; 84443; 84702; 85025

== ENCOUNTER 2024-08-26 10:58 | Outpatient (REF) | payer MEDICAID, SELFPAY ==
--- OUTSIDE RECORDS SUMMARY | 2024-08-26 12:42 | XMS_ITS | Encounter Summary ---
Author Organization [employer] Address [address] [place] [address] Care Team Providers Care Button Tufter Name Role Phone Nikki Cervantes MD Primary Care Provider [phone] Encounter Details Date Type Department Care Team ([facility] st Contact Info) Description 08/25/2024 Orders Only [facility] [address] [place], [place] [phone] Jennifer Chauhan RN Need for prophylaxis against sexually transmitted diseases (Primary Dx); Screening examination for STD (sexually transmitted disease) Social History Tobacco Use Types Packs/Day Years Used Date Smoking Tobacco: Never Smokeless Tobacco: Never Alcohol Use Standard Drinks/Week Comments Never 0 (1 standard drink = 0.6 oz pur e alcohol) Depression Answer Date Recorded Patient Health Questionnaire-9 Score 9 06/25/2023 Patient Health Questionnaire-9 Score 9 06/25/2023 Last PHQ-9: Questionnaire Data Not on file 0 06/25/2023 Housing Stability Answer Date Recorded What is your housing situation today? I have leroy astorga 06/25/[address] you li ve. Do you have problems with any of the following? None of the above 06/25/2023 Food Insecurity Answer Date Recorded Within the past 12 months, y ou worried that your food would run out before you got money to buy more: Never True 06/25/2023 Within the past 12 months,th e food you bought just didn't last and you didn't have enough money to get more: Never True 07/2023 Transportation Answer Date Recorded In the past 12 months, has l ack of transportation kept you from medical appts, meetings, work or from getting things needed for daily living? Yes, it has kept me from medical appointments or getting medications. 06/25/2023 Utilities Answer Date Recorded In the past 12 months, has t he electric, gas, oil or water company threatened to shut off services in your home? No 06/25/2023 Depression Answer Date Recorded Patient Health Questionnaire-2 Score 6 06/25/2023 Comments No Sex and Gender Information Value Date Recorded Sex Assigned at Female 02/20/2022 10:16 AM EDT Legal Sex Female 10:16 AM EDT Gender Identity Female 02/20/2022 10:16 AM EDT Sexual Orientation Straight 02/20/2022 10 :16 AM EDT documented as of this encounter Plan of Treatment Upcoming Encounters Date Type Department Care Team (Late st Contact Info) Description 09/09/2024 9:30 AM EDT Procedure Visit [facility] [address] [place] [address] Alaina Salas CNM [address] [place] [address] 11/18/2024 10:30 AM EDT Office Visit [facility] [address] [place] [phone] Nikki Cervantes MD [address] [place] [address] 02/23/2025 10:00 AM EST Office Visit [facility] ADULT DENTAL [address] [place] [address] Veronica Rebolledo Scheduled Orders Name Type Priority Associated Diagnoses Orde r Schedule Hepatitis C antibody Lab Routine Screening examination for STD (sexually transmitted disease) Need for prophylaxis against sexually transmitted diseases Expected: 08/25/2024 (Approximate), Expires: 08/25/2025 HIV-1 and HIV-2 antibodies Lab Routine Screening examination for STD (sexually transmitted disease) Need for prophylaxis against sexually transmitted diseases Expected: 08/25/2024 (Approximate), Expires: 08/25/2025 Syphilis Antibody Cascading Reflex Lab Routine Screening examination for STD (sexually transmitted disease) Need for prophylaxis against sexually transmitted diseases Expected: 08/25/2024 (Approximate), Expires: 08/25/2025 documented as of this encounter Visit Diagnoses Diagnosis Need for prophylaxis against sexually transmitted diseases- Primary Screening examination for STD (sexually transmitted disease) documented in this encounter Additional Health Concerns Assessment Noted Time PHQ-9 Depression Total Score: 9 06/25/19 24 1:42 PM EST documented as of this encounter Care Teams Button Tufter Relationship Specialty Start Date End Date Nikki Cervantes MD [address] [place] [address] PCP - General Family Medicine 12/22/19 documented as of this encounter
--- OUTSIDE RECORDS SUMMARY | 2024-08-26 12:42 | XMS_ITS | Encounter Summary ---
Author Organization [employer] Address [address] [place] [address] Care Team Providers Care Active Directory Administrator Name Role Phone Nikki Cervantes MD Primary Care Provider [phone] Reason for Visit * Reason Comments Care Coordination CHW outreach for SDO H PT-1 and food needs-referral completed Encounter Details Date Type Department Care Team (Latest Contact Info) Description 08/25/2024 Patient Outreach [facility] [address] [place] [address] Tyrell Be Care Coordination (CH[facility] outreach for SDOH PT-1 and food needs-referral completed /) Social History Tobacco Use Types Packs/Day Years [...] AM EDT documented as of this encounter Progress Notes * Tyrell Be - 08/25/2024 11:36 AM EDT CHW Tyrell Be, placed outbound call to patient for assistance with SDOH as a referral was received by the provider. Patient's name and were confirmed. Patient screened positive for the following SDOH food insecurities. Patient states family in on SNAP program at this time. CHW referral patient to the local list of pantries in the area for help. PT-1 requested was send out in behalf of patient for futures appt. Patient verbalizes understanding, and able to agree with plan to follow up.Patient educated on extended clinic hours on Mondays through Wednesdays, and Walk-In Urgent Care Located in [facility]. Patient provided with after-hours line for [facility], , which offer night time triage service and option to transfer to tangible personal property appraiser provider if needed. documented in this encounter Plan of Treatment Upcoming Encounters Date Type Department Care Team (Late st Contact Info) Description 09/09/2024 9:30 AM EDT Procedure Visit [facility] [address] [place] [address] Alaina Salas CNM [address] [place] [address] 11/18/2024 10:30 AM EDT Office Visit [facility] [address] [place], [place] [phone] Nikki Cervantes MD [address] [place] [address] 02/23/2025 10:00 AM EST Office Visit [facility] ADULT DENTAL [address] [place], [place] [phone] Veronica Rebolledo documented as of this encounter Visit Diagnoses Not on filedocumented in this encounter Additional Health Concerns Assessment Noted Time PHQ-9 Depression Total Score: 9 06/25/19 24 1:42 PM EST documented as of this encounter Care Teams Active Directory Administrator Relationship Specialty Start Date End Date Nikki Cervantes MD [address] [place] [id number] PCP - General Family Medicine 12/22/19 documented as of this encounter
--- OUTSIDE RECORDS SUMMARY | 2024-08-26 12:42 | XMS_ITS | Encounter Summary ---
Author Organization [employer] Address [address] [place] [address] Care Team Providers Care Cycle Repairer Name Role Phone Nikki Cervantes MD Primary Care Provider [phone] Encounter Details Date Type Department Care Team ([facility] st Contact Info) Description 03/05/2024 Orders Only [facility] [address] [place], [place] [phone] Nikki Cervantes MD [address] [place], [place] [phone] Other constipation; Depression with anxiety; Mild intermittent asthma with acute exacerbation Social History Tobacco Use Types Packs/Day Years [...] Description 09/09/2024 9:30 AM EDT Procedure Visit [facility] [address] [place] [address] Alaina Salas CNM [address] [place] [address] 11/18/2024 10:30 AM EDT Office Visit [facility] [address] [place] [address] Nikki Cervantes MD [address] [place] [address] 02/23/2025 10:00 AM EST Office Visit [facility] ADULT DENTAL [address] [place] [address] Veronica Rebolledo documented as of this encounter Visit Diagnoses Diagnosis Other constipation Depression with anxiety Dysthymic disorder Mild intermittent asthma with acute exacerbation documented in this encounter Additional Health Concerns Assessment Noted Time PHQ-9 Depression Total Score: 9 06/25/19 24 1:42 PM EST documented as of this encounter Care Teams Cycle Repairer Relationship Specialty Start Date End Date Nikki Cervantes MD [address] [place] [address] PCP - General Family Medicine 12/22/19 documented as of this encounter"
--- OUTSIDE RECORDS SUMMARY | 2024-08-26 12:42 | XMS_ITS | Encounter Summary ---
Author Organization [employer] Address [address] [place] [address] Care Team Providers Care Comb Capper Name Role Phone Nikki Cervantes MD Primary Care Provider [phone] Encounter Details Date Type Department Care Team ([facility] st Contact Info) Description 08/25/2024 Telephone [facility] [address] [place] [address] Nikki Cervantes MD [address] [place], [place] [phone] Social History Tobacco Use Types Packs/Day Years [...] AM EDT documented as of this encounter Miscellaneous Notes * Telephone Encounter - Ines Galeano - 08/25/2024 10:48 AM EDT Symptom: Back Pain - Not From Injury Outcome: Schedule an urgent appointment (within 1 hour) or talk to a nurse or provider soon Reason: Numbness of the leg The caller accepted this outcome. Contact pt at [phone] documented in this encounter Plan of Treatment Upcoming Encounters Date Type Department Care Team (Late st Contact Info) Description 09/09/2024 9:30 AM EDT Procedure Visit [facility] [address] [place] [address] Alaina Salas CNM [address] [place] [address] 11/18/2024 10:30 AM EDT Office Visit [facility] [address] [place] [address] Nikki Cervantes MD [address] [place] [address] 02/23/2025 10:00 AM EST Office Visit [facility] ADULT DENTAL [address] [place] [address] Veronica Rebolledo documented as of this encounter Visit Diagnoses Not on filedocumented in this encounter Additional Health Concerns Assessment Noted Time PHQ-9 Depression Total Score: 9 06/25/19 24 1:42 PM EST documented as of this encounter Care Teams Comb Capper Relationship Specialty Start Date End Date Nikki Cervantes MD [address] [place] [address] PCP - General Family Medicine 12/22/19 documented as of this encounter
--- OUTSIDE RECORDS SUMMARY | 2024-08-26 12:42 | XMS_ITS | Clinical Summary ---
Author Organization [address] [facility] Address [address] [place] [address] Phone Care Team Providers Care Linecasting Machine Keyboard Operator Name Role Phone Nikki Cervantes MD Primary Care Provider [phone] Allergies No known active allergies Medications albuterol HFA (PROAIR HFA ; PROVENTIL HFA ; VENTOLIN HFA) 90 mcg/actuation inhaler Inhale 2 puffs by mouth every 6 (six) hours if needed for wheezing. Active docusate sodium (COLACE) 100 mg capsule Take 1 capsule (100 mg total) by mouth 2 (two) times a day. Active hydrOXYzine pamoate (VISTARIL) 25 mg capsule Take 1 capsule (25 mg total) by mouth 3 (three) times a day if needed for itching. Active PARoxetine (PAXIL) 10 mg tablet Take 1 tablet (10 mg total) by mouth 1 (one) time each day in the morning. Active psyllium (METAMUCIL) powder Take 1 packet by mouth 3 (three) times a day. Active senna (SENOKOT) 8.6 mg tablet Take 1 tablet (8.6 mg total) by mouth 1 (one) time each day. Active linaCLOtide (Linzess) 145 mcg capsule Take 1 capsule (145 mcg total) by mouth 1 (one) time each day. 90 each 05/06/2024 08/05/19 25 Social History Tobacco Use Types Packs/Day Years Used Date Smoking Tobacco: Never Assessed Comments Unknown Sex and Gender Information Value Date Recorded Sex Assigned at Female 05/07/2024 6:40 PM EST Legal Sex Female 10:09 AM EST Gender Identity Female 05/07/2024 6:40 PM EST Sexual Orientation Straight 05/07/2024 6: 40 PM EST Last Filed Vital Signs Vital Sign Reading Time Taken Comments Blood Pressure 115/75 05/06/2024 10:16 AM EST Pulse 76 05/06/2024 10:16 AM EST Temperature - - Respiratory Rate - - Oxygen Saturation 98% 05/06/2024 10:16 AM EST Inhaled Oxygen Concentration - - Weight 90.7 kg (200 lb) 05/06/2024 10:16 AM EST Height 154.9 cm (5' 1 ) 05/06/2024 10:16 AM EST Body Mass Index 37.79 05/06/2024 10:16 AM EST Plan of Treatment Upcoming Encounters Date Type Department Care Team ([facility] st Contact Info) Description 08/28/2024 10:00 AM EDT Office Visit [facility] [place] [address] [place] [address] Heather Nguyễn NP [address] [facility] [address] [place], [place] [phone] Health Maintenance Due Date Last Done Comments HPV Vaccines (3 - 3-dose series) 11/08/2017 08/16/2017, 06/26/2016 Pneumococcal Vaccine: Pediatrics (0 to 5 Years) and At-Risk Patients (6 to 64 Years) (1 of 2 - PCV) 2018 Cervical Cancer Screening: Pap Smear 2020 COVID-19 Vaccine ( season) 2023 03/22/2022, 01/18/2022 HIV Screening 04/01/2024 Hepatitis C Screening 04/01/2024 Social Influencers of Health Screening 04/01/2024 Depression Screening 06/24/2024 06/25/2023 Influenza Vaccine (Season Ended) 2024 05/31/2022, 06/26/2016 Cholesterol Screening (Lipid Panel) 06/24/2028 06/25/2023 DTaP,Tdap,and Td Vaccines (8 - Td or Tdap) 06/16/2032 06/16/2022, 07/15/2010, 11/22/2004, Additional history exists Hepatitis B Vaccines Completed 1999, 1999, 1999 HIB Vaccines Completed 12/11/2002, 03/23, 1999 IPV Vaccines Completed 11/22/2004, 04/1999, 1999, Additional history exists MMR Vaccines Completed 11/22/2004, 09/26/2000 Varicella Vaccines Completed 09/05/2011, 09/26/2000 Meningococcal ACWY Vaccine Completed 06/26, 07/15/2010, 12/11/2002, Additional history exists Hepatitis A Vaccines Aged Out No long er eligible based on patient's age to complete this topic Meningococcal B Vaccine Aged Out No l onger eligible based on patient's age to complete this topic RSV Immunization Patients Under 20 months Aged Out No longer eligible based on patient's age to complete this topic Insurance MEDICAID - [place] Care Teams Linecasting Machine Keyboard Operator Relationship Specialty Start Date End Date Nikki Cervantes MD [address] [place] [address] PCP - General Body Designer 04/01/24
--- OUTSIDE RECORDS SUMMARY | 2024-08-26 12:42 | XMS_ITS | Encounter Summary ---
Author Organization [employer] Address [address] [facility] [address] [place] [address] Care Team Providers Care Dye Can Operator Name Role Phone Nikki Cervantes MD Primary Care Provider [phone] Reason for Visit * Reason Onset Date Comments Durable Medical Equipment 08/25/2024 Encounter Details Date Type Department Care Team ([facility] st Contact Info) Description 08/25/2024 Telephone [facility] [address], [place] [phone] Nikki Cervantes MD [address] [place], [place] [phone] Durable Medical Equipment Social History Tobacco Use Types Packs/Day Years [...] Telephone Encounter - Ines Galeano - 08/25/2024 10:47 AM EDT Tc from pt manager critical care unit Alice stating pt is requesting nebulizer machine documented in this encounter Plan of Treatment Upcoming Encounters Date Type Department Care Team (Late st Contact Info) Description 09/09/2024 9:30 AM EDT Procedure Visit [facility] [address] [place] [address] Alaina Salas CNM [address] [place] [address] 11/18/2024 10:30 AM EDT Office Visit [facility] [address] [place] [phone] Nikki Cervantes MD [address] [place] [address] 02/23/2025 10:00 AM EST Office Visit [facility] ADULT DENTAL [address] [place] [address] Veronica Rebolledo documented as of this encounter Visit Diagnoses Not on filedocumented in this encounter Additional Health Concerns Assessment Noted Time PHQ-9 Depression Total Score: 9 06/25/19 24 1:42 PM EST documented as of this encounter Care Teams Dye Can Operator Relationship Specialty Start Date End Date Nikki Cervantes MD [address] [place] [address] PCP - General Family Medicine 12/22/19 documented as of this encounter
--- OUTSIDE RECORDS SUMMARY | 2024-08-26 12:42 | XMS_ITS | Clinical Summary ---
Author Organization [email or web address] Address [address] [facility] 7t [place] [address] Care Team Providers Care Compliance Auditor Name Role Phone Nikki Cervantes MD Primary Care Provider [phone] Allergies No known active allergies Medications * This document contains information received from the source organization and may not represent a complete record from that organization. Blood Pressure Monitoring (Blood Pressure Cuff) miscIndications:E levated blood pressure reading 1 Dose in the morning. 1 each 4 Active senna (Senokot) 8.6 MG tabletIndications :Other constipation Take 1 tablet (8.6 mg) by mouth at bedtime. 90 tablet 4 Active PARoxetine (Paxil) 10 MG tabletIndications :Depression with anxiety Take 1 tablet (10 mg) by mouth in the morning. 90 tablet 3 4 03/05/20 25 Active docusate sodium (Colace) 100 MG capsuleIndication s:Other constipation Take 1 capsule (100 mg) by mouth Once per day. 90 capsule 1 4 09/02/19 25 Active albuterol 108 (90 Base) MCG/ACT inhalerIndication s:Mild intermittent asthma with acute exacerbation Inhale 2 puffs every 4 (four) hours if needed for wheezing. You can use 4-6 puffs while you are sick with pneumonia 18 g 11 4 03/05/20 25 Active hydrOXYzine pamoate (Vistaril) 25 MG capsuleIndication s:Depression with anxiety Take 1 capsule (25 mg) by mouth every 8 (eight) hours if needed for itching. 90 capsule 3 4 Active psyllium (Metamucil Smooth Texture) 58.6 % powder Take 5.12 g (3 g of fiber) by mouth 2 times daily. 283 g 11 4 03/05/20 25 Active hydrocortisone 0.5 % cream APPLY TOPICALLY 2 (TWO) TIMES A DAY FOR 14 DAYS. FOR PERIANAL LACERATIONS. 5 Active Linzess 145 MCG capsule take 1 capsule (145 mcg total) by mouth once daily Active Active Problems Problem Noted Date Diagnosed Date Pneumonia of left lower lobe due to infectious o rganism 02/26/2024 Assessment & Plan (02/26/2024 11:39 AM EST): Continue antibiotics, rest, hydration Return to clinic/ED precautions discussed Other constipation 06/26/2023 Assessment & Plan (06/26/2023 2:50 PM EST): Miralax clean-out prescribed, twice a day x 2 weeks, then daily for 6 months Blurry vision 06/26/2023 Assessment & Plan (06/26/2023 2:54 PM EST): Referral to optometry placed Asthma 04/06/2023 04/06/2023 Obesity (BMI 35.0-39.9 without comorbidity) 11/21 Assessment & Plan (12/04/2022 12:44 PM EDT): Trial Wellbutrin and Plenity followup in 3 months Irregular intermenstrual bleeding 12/04/2022 Assessment & Plan (04/06/2023 10:34 AM EST): Nexplanon removed last week Recommend that she start Slynd UA without evidence of infection Assessment & Plan (12/04/2022 12:44 PM EDT): 1-3 months of OCPs Depression with anxiety 10/27/2022 Assessment & Plan (06/26/2023 2:53 PM EST): -Continue Hydroxyzine HS for anxiety -Continue outpt psychotherapy -Add Paxil 10mg daily, stop Wellbutrin Assessment & Plan (10/27/2022 10:35 PM EDT): Depression/anxiety PHQ9 - 16, denies dena, hallucinations, SI. Does have pressure speech during interview, reports feeling depressed since she was 9 years old. Never treated before. -Evaluated today by BH, who also consider a dx of depression w no concern for hypomania. -Start Hydroxyzine HS for anxiety -BH will refer today to outpt psychotherapy -Pt will follow w PCP next mo. If no improvement will need to consider starting antidepressants. Elevated blood pressure reading 10/27/2022 Assessment & Plan (06/26/2023 2:53 PM EST): BP cuff sent, monitor at home Assessment & Plan (10/27/2022 10:36 PM EDT): Today BP is borderline elevated (140/90) - checked manually. -Lifestyle changes advised, wt loss. -To f BP at next appt w PCP. Abnormal uterine bleeding 05/31/2022 Assessment & Plan (06/26/2023 2:52 PM EST): Resolved after Nexplanon removal Continue condoms for contraception Assessment & Plan (10/27/2022 10:30 PM EDT): Pt w 6-12 mo of ongoing irregular periods, dysmenorrhea, menorrhagia. Pt thinks that since she got Nexplanon changed these sx began. However she did have Nexplanon before that, w out a problem -Will do TV, Pelvic US -Labs to rule out anemia -If sx persist will need to consider Nexplanon removal. Pt to f up w PCP next mo. - Tylenon PRN for mild pain, NSAIDs for moderate pain. Neck pain 03/17/2020 Resolved Problems Problem Noted Date Diagnosed Date Resolved Date Sore throat 02/05/2024 02/26/2024 Assessment & Plan (02/05/2024 10:08 AM EDT): Symptomatology and physical exam indicative of a viral URI Neg strep, flu and covid Plan: symptomatic treatment Acetaminophen, antihistaminics, decongestant and throat lozenges Follow up if symptoms do not improve or worsen An excuse for work extended Viral URI with cough 02/05/2024 024 Assessment & Plan (02/05/2024 10:10 AM EDT): Symptomatology and physical exam indicative of a viral URI Neg strep, flu and covid Plan: symptomatic treatment Acetaminophen, antihistaminics, decongestant and throat lozenges Follow up if symptoms do not improve or worsen An excuse for work extended Right ear pain 05/31/2022 02/26/2024 Assessment & Plan (04/06/2023 10:33 AM EST): Likely part of viral infection, antibiotics not indicated Encounters Date Type Department Care Team Description 08/25/2024 Orders Only [facility] MEDICINE [address] [place] [phone] Jennifer Chauhan RN Need for prophylaxis against sexually transmitted diseases (Primary Dx); Screening examination for STD (sexually transmitted disease) 08/25/2024 Patient Outreach [address] [address] Tyrell Be Care Coordination (CHW outreach for SDOH PT-1 and food needs-referral completed /) 08/25/2024 Telephone [facility] MEDICINE [address] [place] [address] Nikki Cervantes MD 08/25/[address] [address] Nikki Cervantes MD Durable Medical Equipment 08/25/[address] [address] Nikki Cervantes MD PT1 07/30/[address] [address] Nikki Cervantes MD RECALL 07/04/2024 Population Health Risk Score [facility] () Department [address] [place] [phone] Provider, Population Health Generic 06/19/2024 9:30 AM EST Office Visit [facility] OPTOMETRY [address] [place] [address] Nena Osuna, OD Retinal hole of left eye (Primary Dx); White without pressure of peripheral retina of left eye; Exophoria 06/19/2024 9:00 AM EST Office Visit [facility] OPTOMETRY [address] [place] [address] Nena Osuna, OD Myopia of both eyes (Primary Dx) 06/19/2024 Travel from Last 3 Months Immunizations Name Administration Dates Next Due DTaP 11/22/2004, 1,1999,09/21 DTaP, 5 pertussis antigens 1999 HPV 9-Valent 08/16/2017,06/26/2016 Hep B, Adolescent or Pediatric 1999,1999,1999 HiB, unspecified 12/11/2002,04/08/2001 Hib (PRP-T) 1999 IPV 11/22/2004, 0,1999,07/13 Influenza injectable quadriv alent IIV4 with preservative 05/31/2022 Influenza injectable quadriv alent preservative free 06/26/2016 MMR 11/22/2004,09/26/2000 Meningococcal MCV4P ACYW-135 06/26/2016, 07/15/2010,12/11/2002,04/08 Moderna Covid-19 Vaccine 12+ 03/22/2022,01/19/20 22 Tdap 06/16/2022,07/15/2010 Varicella 09/05/2011,09/26/2000 Social History Tobacco Use Types Packs/Day Years Used Date Smoking Tobacco: Never Smokeless Tobacco: Never Tobacco Cessation:Counseling Given: Not Answered Alcohol Use Standard Drinks/Week Comments Never 0 [...] Orientation Straight 02/20/2022 10 :16 AM EDT Last Filed Vital Signs Vital Sign Reading Time Taken Comments Blood Pressure 131/87 03/25/2024 11:23 AM EST Pulse 86 03/25/2024 11:23 AM EST Temperature 36.4 ??C (97.5 ??F) 03/25/2024 11:[address] Respiratory Rate 17 03/25/2024 11:23 AM EST Oxygen Saturation 98% 02/19/2024 6:53 PM EDT Inhaled Oxygen Concentration - - Weight 90.7 kg (200 lb) 03/25/2024 11:23 AM EST Height 154.9 cm (5' 1 ) 03/25/2024 11:23 AM EST Body Mass Index 37.79 03/25/2024 11:23 AM EST Plan of Treatment Upcoming Encounters Date Type Department Care Team (Late st Contact Info) Description 09/09/2024 9:30 AM EDT Procedure Visit [facility] MEDICINE [address] [place] [address] Alaina Salas CNM [address] [place], [place] [phone] 11/18/2024 10:30 AM EDT Office Visit [facility] MEDICINE [address] [place], [place] [phone] Nikki Cervantes MD [address] [place], [place] [phone] 02/23/2025 10:00 AM EST Office Visit [facility] ADULT DENTAL [address] [place], [place] [phone] Veronica Rebolledo Health Maintenance Due Date Last Done Comments Alcohol/Substance Use Screening 2011 HPV Vaccines (3 - 3-dose series) 11/08/2017 08/16/2017, 06/26/2016 Pneumococcal Vaccine: Pediatrics (0 to 5 Years) and At-Risk Patients (6 to 49) Years) (1 of 2 - PCV) 2018 COVID-19 Vaccine (3 - season) 2023 03/22/2022, 01/18/2022 Influenza Vaccine (#1) 2023 05/31/2022, 2016 Pap Smear 02/09/2024 02/08/2021 Depression Screening 06/24/2024 06/25/2023, 06/25/19 SDOH Screening 06/24/2024 06/25/2023 Family Planning (PISQ) 01/06/2025 01/07/2024 Tobacco Screening 06/20/2025 06/20/2024 Lipid Panel 06/24/2028 06/25/2023 DTaP/Tdap/Td Vaccines (8 - Td or Tdap) 06/16/2032 06/16/2022, 07/15/2010, 11/22/2004, Additional history exists Zoster Vaccines (1 of 2) 2049 RSV Patients and Patients Aged 60 years or older (1 - 1-dose 75+ series) 2074 Hepatitis B Vaccines Completed 1999, 1999, 1999 HIB Vaccines Completed 12/11/2002, 03/23, 1999 IPV Vaccines Completed 11/22/2004, 080 04/1999, 1999, Additional history exists Meningococcal Vaccine Completed 06/26/2016 , 07/15/2010, 12/11/2002, Additional history exists HIV Screening Completed 06/18/2019 Hepatitis C Screening Completed 06/18/2019 Hepatitis A Vaccines Aged Out No long er eligible based on patient's age to complete this topic RSV under 20 months Aged Out No longe r eligible based on patient's age to complete this topic Rotavirus Vaccines Aged Out No longer eligible based on patient's age to complete this topic Procedures Procedure Name Priority Date/Time Associated Diagnosis Comments LIPID PANEL, STANDARD Routine 06/25/2023 2:26 PM EST Elevated blood pressure reading THINPREP PAP Routine 02/08/2021 12:00 AM EDT ZHOWIE HISTORICAL HEPATITIS C ANTIBODY Routine 06/18/2019 11:10 AM EST MADELAINE HISTORICAL HIV AB/AG Routine 06/18/2019 11:10 AM EST from Last 3 Months or Most Recently Relevant to Health Maintenance Results * (ABNORMAL) Lipid Panel, Standard (06/25/2023 2:26 PM EST) Triglycerides 96 <150 mg/dL [facility] Comment:Desirable Triglyceri de: less than 150 mg/dLBorderline High Triglyceride 150-199 mg/dLHigh Triglyceride: 200-499 mg/dLVery High Triglyceride: greater than or equal to 5OO mg/dL Cholesterol 179 <200 mg/dL [facility] Comment:Desirable Cholestero l: less than 200 mg/dLBorderline High Cholesterol: 200-239 mg/dLHigh Cholesterol: greater than 239 mg/dL LDL Cholesterol Calculated 118(H) <100 mg/dL [facility] Comment:Desirable LDL: less than 100 mg/dLNear Optimal/Above Optimal LDL: 110- 129 mg/dLBorderline High LDL: 130-159 mg/dLHigh LDL: 160-189 mg/dLVery High LDL: greater than or equal to 190 mg/dL HDL Cholesterol 42 >40 mg/dL [facility] Comment:Desirable HDL: great er than 40 mg/dL Note: This HDL assay may give artificially low results in patients with liver disease. Blood Venous blood specimen / Unknown 06/25/2023 2:26 PM EST 06/25/2023 4:02 PM EST Nikki Cervantes MD LAB BLOOD ORDERABLES Final Res ult Performing Organization Address [facility]/ZIP Co de Phone Number [facility] [address] [place] [phone] * THINPREP PAP (02/08/2021 12:00 AM EDT) Clinical Information: None given [facility] COMMENT SEE COMMENT [facility] Comment: EXPLANATORY NOTE: ? The Pap is a screening test for cervical cancer. It is ?? not a diagnostic test and is subject to false negative ?? and false positive results. It is most reliable when a ?? satisfactory sample, regularly obtained, is submitted ?? with relevant clinical findings and history, and when ?? the Pap result is evaluated along with historic and ?? current clinical information. ?? Cabin Cleaning Supervisor : SEE COMMENT [facility] Comment: M, CT(ASCP) CT screening location: [address] ??[id number] Infection Bacteria morphologically consistent with Actinomyces spp. [facility] Interpretation/R esult: Negative for intraepithelial lesion or malignancy. [facility] LMP: NONE GIVEN [facility] Prev. BX: NONE GIVEN [facility] Prev. PAP: NONE GIVEN [facility] SOURCE: None given [facility] Statement Of Adequacy: SEE COMMENT [facility] Comment: Satisfactory for evaluation. Endocervical/transformation zone component absent. Age and/or menstrual status not provided 02/08/2021 us Rose Dubose MARKETING SUPPORT ASSISTANT LAB PATHOLOGY ORDERABLES Final Result [facility] [address] [place] [address], * HEPATITIS C ANTIBODY (06/18/2019 11:10 AM EST) HEPATITIS C ANTIBODY NONREACTIVE NONREACTIVE [facility] Comment: Antibodies to HCV not detected; does not exclude early acute HCV infection. 06/18/2019 11:1 0 AM EST Alaina Maritza JETT HISTORICAL/NON ORDERABLE LABS Final Result Performing Organization Address [facility] de Phone Number [facility] [address] * HIV AB/AG (06/18/2019 11:10 AM EST) HIV AG/AB NONREACTIVE NR [facility] Comment: HIV-1 p24 Ag and/or HIV-1/HIV-2 Ab not detected. ?? A test result that is nonreactive does not exclude the possibility of exposure to or infection with HIV-1 and/or HIV-2. Nonreactive results in this assay for individuals with prior exposure to HIV-1 and/or HIV-2 may be due to antigen and antibody levels that are below the limit of detection of this assay. ?? The [employer] HIV Ag/Ab Combo assay result and supplemental assay results should be interpreted in conjunction with the patient's clinical presentation, history and other laboratory results. ??If the results are inconsistent with clinical evidence, additional testing is suggested to confirm the result. 06/18/2019 11:1 0 AM EST Alaina Salas CNM HISTORICAL/NON ORDERABLE LABS Final Result Performing Organization Address [facility] Phone Number [facility] [address] from Last 3 Months or Most Recently Relevant to Health Maintenance Insurance [facility] C3 DENTAL-[facility] MEDICAID STAND ADULT Care Teams Compliance Auditor Relationship Specialty Start Date End Date Nikki Cervantes MD [address] [place] [address] PCP - General Family Medicine 12/22/19
--- OUTSIDE RECORDS SUMMARY | 2024-08-26 12:42 | XMS_ITS | Encounter Summary ---
Author Organization [employer] Address [address] [facility] 7[address] [place] [address] Care Team Providers Care Restaurant Busser Name Role Phone Nikki Cervantes MD Primary Care Provider [phone] Reason for Visit * Reason Onset Date Comments PT1 08/25/2024 Encounter Details Date Type Department Care Team ([facility] st Contact Info) Description 08/25/2024 Telephone [facility] MEDICINE [address] [place], [place] [phone] Nikki Cervantes MD [address] [place], [place] [phone] PT1 Social History Tobacco Use Types Packs/Day Years [...] Telephone Encounter - Ines Galeano - 08/25/2024 10:41 AM EDT Patient care transitions manager Alice martinez requesting PT1 Home Address verified: Y/N: Yes Provider name or facility name: [facility] Facility Address: [address] [place] [address] Escort needed: Y/N: Yes Do you have a wheelchair: Y/N: No If yes- Manual or electric: n/a Visits: 3 x a month PT1 Home Address verified: Y/N: Yes Provider name or facility name: [facility] - Gastroenter[facility] Facility Address: [address], [place] [address] Escort needed: Y/N: Yes Do you have a wheelchair: Y/N: No If yes- Manual or electric: n/a Visits: 2 x a month documented in this encounter Plan of Treatment Upcoming Encounters Date Type Department Care Team ([facility] st Contact Info) Description 09/09/2024 9:30 AM EDT Procedure Visit [facility] MEDICINE [address] [place] [address] Alaina Salas CNM [address] [place] [address] 11/18/2024 10:30 AM EDT Office Visit [facility] MEDICINE [address] [place] [address] Nikki Cervantes MD [address] [place] [address] 02/23/2025 10:00 AM EST Office Visit [facility] ADULT DENTAL [address] [place] [address] Veronica Rebolledo documented as of this encounter Visit Diagnoses Not on filedocumented in this encounter Additional Health Concerns Assessment Noted Time PHQ-9 Depression Total Score: 9 06/25/19 24 1:42 PM EST documented as of this encounter Care Teams Restaurant Busser Relationship Specialty Start Date End Date Nikki Cervantes MD [address] [place] [phone] PCP - General Family Medicine 12/22/19 documented as of this encounter
--- OUTSIDE RECORDS SUMMARY | 2024-08-26 12:42 | XMS_ITS | Encounter Summary ---
Author Organization [employer] Address [address] [facility] [address] 7[address] [place] [address] Care Team Providers Care Converting Supervisor Name Role Phone Nikki Cervantes MD Primary Care Provider [phone] Encounter Details Date Type Department Care Team ([facility] st Contact Info) Description 07/18/2023 Orders Only [facility] [address] [place], [place] [phone] Nikki Cervantes MD [address] [place], [place] [phone] Low TSH level (Primary Dx) Social History Tobacco Use Types Packs/Day Years [...] Description 09/09/2024 9:30 AM EDT Procedure Visit [facility] [address] [place] [address] Alaina Salas CNM [address] [place] [address] 11/18/2024 10:30 AM EDT Office Visit [facility] [address] [place] [address] Nikki Cervantes MD [address] [place] [address] 02/23/2025 10:00 AM EST Office Visit [facility] ADULT DENTAL [address] [place] [phone] Veronica Rebolledo documented as of this encounter Procedures Procedure Name Priority Date/Time Associated Diagnosis Comments T3, TOTAL Routine 07/27/2023 12:59 PM EDT Low TSH level documented in this encounter Results * T3, Total (07/27/2023 12:59 PM EDT) T3, Total 131 76 - 181 ng/dL [facility] Comment:THIS TEST WAS PERFOR MED AT:[facility] [address] [phone] WRIGHT MD Blood Venous blood specimen / Unknown 07/27/2023 12:59 PM EDT 07/27/2023 4:06 PM EDT Nikki Cervantes MD LAB BLOOD ORDERABLES Final Res ult [facility] [address] [place] [phone] documented in this encounter Visit Diagnoses Diagnosis Low TSH level- Primary documented in this encounter Additional Health Concerns Assessment Noted Time PHQ-9 Depression Total Score: 9 06/25/19 24 1:42 PM EST documented as of this encounter Care Teams Converting Supervisor Relationship Specialty Start Date End Date Nikki Cervantes MD [address] [place] [address] PCP - General Family Medicine 12/22/19 documented as of this encounter
[2024-08-27 04:40] LABS: HIV AB/AG Nonreactive (Nonreactive); HIV Num 1 0.05 S/CO (0.00-0.99); ~HepC Num1 0.08 S/CO (0.00-0.79); ~Hepatitis C Antibody Nonreactive (Nonreactive)
== END 2024-08-26 10:59 | disposition home or self-care (01) ==
LOC: HO.HHCL 10:58
PROVIDERS: Visit Provider General Practice
DX: Z29.89 Encounter for other specified prophylactic measures (principal); Z11.3 Encounter for screening for infections with a predominantly sexual mode of transmission
CPT/HCPCS: 36415; 86803; 87389

== ENCOUNTER 2024-09-09 10:29 | Outpatient (REF) | payer MEDICAID, SELFPAY ==
--- OUTSIDE RECORDS SUMMARY | 2024-09-09 11:42 | XMS_ITS | Encounter Summary ---
Author Organization [employer] Address [address] [facility] 7 [place] [address] Care Team Providers Care Senior Systems Engineer Name Role Phone Nikki Cervantes MD Primary Care Provider Reason for Visit * Reason Onset Date Comments PT1 08/25/2024 Encounter Details Date Type Department Care Team ([facility] st Contact Info) Description 08/25/2024 Telephone [facility] MEDICINE [address] [place], [place] [phone] Nikki Cervantes MD [address] [place], [place] [phone] PT1 Social History Tobacco Use Types Packs/Day [...] Galeano - 08/25/2024 10:41 AM EDT Patient home care and home health aides teacher Alice martinez requesting PT1 Home Address verified: Y/N: Yes Provider name or facility name: [facility] Facility Address: [address] [place] [address] Escort needed: Y/N: Yes Do you have a wheelchair: Y/N: No If yes- Manual or electric: n/a Visits: 3 x a month PT1 Home Address verified: Y/N: Yes Provider name or facility name: [facility] - Gastroenter[facility] Facility Address: [address] [place] [address] [address], [place] [address] Escort needed: Y/N: Yes Do you have a wheelchair: Y/N: No If yes- Manual or electric: n/a Visits: 2 x a month documented in this encounter Plan of Treatment Upcoming Encounters Date Type Department Care Team ([facility] st Contact Info) Description 11/18/2024 10:30 AM EDT Office Visit [facility] MEDICINE [address] [place] [address] Nikki Cervantes MD [address] [place] [address] 02/23/2025 10:00 AM EST Office Visit [facility] ADULT DENTAL [address] [place] [address] Veronica Rebolledo documented as of this encounter Visit Diagnoses Not on filedocumented in this encounter Additional Health Concerns Assessment Noted Time PHQ-9 Depression Total Score: 9 06/25/19 24 1:42 PM EST documented as of this encounter Care Teams Senior Systems Engineer Relationship Specialty Start Date End Date Nikki Cervantes MD [address] [place] [address] PCP - General Family Medicine 12/22/19 documented as of this encounter
--- OUTSIDE RECORDS SUMMARY | 2024-09-09 11:42 | XMS_ITS | Clinical Summary ---
Author Organization [employer] Address [address] [facility] 7t [place] [address] Care Team Providers Care Oil Lease Broker Name Role Phone Nikki Cervantes MD Primary Care Provider [phone] Allergies No known active allergies Medications * This document contains information received from the source organization and may not represent a complete record from that organization. Blood Pressure Monitoring (Blood Pressure Cuff) miscIndications: Elevated blood pressure reading 1 Dose in the morning. 1 each 06/26/19 24 Active senna (Senokot) 8.6 MG tabletIndication s:Other constipation Take 1 tablet (8.6 mg) by mouth at bedtime. 90 tablet 03/05/20 24 Active PARoxetine (Paxil) 10 MG tabletIndication s:Depression with anxiety Take 1 tablet (10 mg) by mouth in the morning. 90 tablet 3 03/05/20 24 025 Active albuterol 108 (90 Base) MCG/ACT inhalerIndicatio ns:Mild intermittent asthma with acute exacerbation Inhale 2 puffs every 4 (four) hours if needed for wheezing. You can use 4-6 puffs while you are sick with pneumonia 18 g 11 03/05/20 24 025 Active hydrOXYzine pamoate (Vistaril) 25 MG capsuleIndicatio ns:Depression with anxiety Take 1 capsule (25 mg) by mouth every 8 (eight) hours if needed for itching. 90 capsule 3 03/05/20 24 Active psyllium (Metamucil Smooth Texture) 58.6 % powder Take 5.12 g (3 g of fiber) by mouth 2 times daily. 283 g 11 13/20 24 025 Active hydrocortisone 0.5 % cream APPLY TOPICALLY 2 (TWO) TIMES A DAY FOR 14 DAYS. FOR PERIANAL LACERATIONS. 05/06/19 Active Linzess 145 MCG capsule take 1 capsule (145 mcg total) by mouth once daily Active Drospirenone (Slynd) 4 MG tablet Take 1 tablet by mouth Once per day. 28 tablet 09/10/19 Active levonorgestrel (Plan B) 1.5 MG tablet Take 1 tablet (1.5 mg) by mouth 1 (one) time for 1 dose. 1 tablet 09/10/19 25 025 Active docusate sodium (Colace) 100 MG capsuleIndicatio ns:Other constipation Take 1 capsule (100 mg) by mouth Once per day. 90 capsule 1 03/05/20 Drospirenone (Slynd) 4 MG tablet Take 1 tablet by mouth Once per day. 28 tablet 09/10/19 025 Discontinued levonorgestrel (Plan B) 1.5 MG tablet Take 1 tablet (1.5 mg) by mouth 1 (one) time for 1 dose. 1 tablet 09/10/19 25 025 Discontinued Active Problems Problem Noted Date Diagnosed Date [...] Encounters Date Type Department Care Team Description 09/09/2024 9:30 AM EDT Procedure Visit [facility] [address] [place] [address] Alaina Salas CNM Routine cervical smear (Primary Dx); Screening examination for venereal disease; Family planning counseling; Irregular periods 09/09/2024 Travel 08/29/2024 Orders Only [facility] [address] [place] [address] Berta Gandhi RN 08/26/2024 Orders Only [facility] [address] [place], [place] [phone] Nikki Cervantes MD 08/25/2024 Orders Only [facility] [address] [place] [address] Jennifer Chauhan RN Need for prophylaxis against sexually transmitted diseases (Primary Dx); Screening examination for STD (sexually transmitted disease) 08/25/2024 Patient Outreach [address] [address] Tyrell Be Care Coordination (CHW outreach for SDOH PT-1 and food needs-referral completed /) 08/25/2024 Telephone [facility] [address] [place] [address] Nikki Cervantes MD 08/25/[address] [address] Nikki Cervantes MD Durable Medical Equipment 08/25/[address] [address] Nikki Cervantes MD PT1 07/30/[address] [address] Nikki Cervantes MD RECALL 07/04/2024 Population Health Risk Score [facility] () Department [address] [place] [phone] Provider, Population Health Generic 06/19/2024 9:30 AM EST Office Visit [facility] [address] [place] [address] Nena Osuna, OD Retinal hole of left eye (Primary Dx); White without pressure of peripheral retina of left eye; Exophoria 06/19/2024 9:00 AM EST Office Visit [facility] [address] [place] [address] Nena Osuna, OD Myopia of both eyes (Primary Dx) 06/19/2024 Travel from Last 3 Months Immunizations Immunization Administration Dates Next Due DTaP 11/22/2004, 1,1999,09/21 [...] is your housing situation today? I have leroymarina astorga 06/25/[address] you [...] Health Questionnaire-2 Score 6 06/25/2023 Comments No Intention Date Recorded No desire to become (finding) 0 09/09/2024 Sex and Gender Information Value Date Recorded Sex Assigned at Female 02/20/2022 10:16 AM EDT Legal Sex Female 10:16 AM EDT Gender Identity Female 02/20/2022 10:16 AM EDT Sexual Orientation Straight 02/20/2022 10 :16 AM EDT Last Filed Vital Signs Vital Sign Reading Time Taken Comments Blood Pressure 134/87 09/09/2024 9:49 AM EDT Pulse 84 09/09/2024 9:49 AM EDT Temperature 36.7 ??C (98 ??F) 09/09/2024 9:49 AM EDT Respiratory Rate 21 09/09/2024 9:49 AM EDT Oxygen Saturation 98% 02/19/2024 6:53 PM EDT Inhaled Oxygen Concentration - - Weight 89.4 kg (197 lb 3.2 oz) 09/09/2024 9:49 A M EDT Height 154.9 cm (5' 1 ) 09/09/2024 9:49 AM EDT Body Mass Index 37.26 09/09/2024 9:49 AM EDT Plan of Treatment Upcoming Encounters Date Type Department Care Team (Late st Contact Info) Description 11/18/2024 10:30 AM EDT Office Visit [facility] [address] [place] [phone] Nikki Cervantes MD [address] [place] [phone] 02/23/2025 10:00 AM EST Office Visit [facility] [address] [place] [address] Veronica Rebolledo Health Maintenance Due Date Last Done Comments Disability Screening 1999 Alcohol/Substance Use Screening 2011 HPV Vaccines (3 - 3-dose series) 11/08/2017 08/16/2017, 06/26/2016 Pneumococcal Vaccine: Pediatrics (0 to 5 Years) and At-Risk Patients (6 to 49) Years) (1 of 2 - PCV) 2018 COVID-19 Vaccine (3 - 2024-25 season) 2023 03/22/2022, 01/18/2022 Influenza Vaccine (#1) [...] Completed 11/22/2004, 04/1999, 1999, Additional history exists Meningococcal Vaccine Completed 06/26/2016 , 07/15/2010, 12/11/2002, Additional history exists HIV Screening Completed 08/26/2024, 06/18/2019 Hepatitis C Screening Completed 08/26/2024, 020 Hepatitis A Vaccines Aged Out No long [...] Procedure Name Priority Date/Time Associated Diagnosis Comments HIV 1/2 ANTIGEN/ANTIBODY, FOURTH GENERATION W/RFL Routine 08/26/2024 11:00 AM EDT HEPATITIS C AB W/REFL TO HCV RNA, QN, PCR Routine 08/26/2024 11:00 AM EDT CHLAMYDIA/GONORRHEA VAGINAL SWAB (IL DP) Routine 08/25/2024 LIPID PANEL, STANDARD Routine 06/25/2023 2:26 PM EST Elevated blood pressure reading THINPREP PAP Routine 02/08/2021 12:00 AM EDT from Last 3 Months or Most Recently Relevant to Health Maintenance Results * Hepatitis C Antibody with Reflex to HCV, RNA, Quantitative, Real-Time PCR (08/26/2024 11:00 AM EDT) Hepatitis C Antibody Nonreactive Nonreactive [facility] Comment:Antibodies to HCV no t detected; does not exclude early acuteHCV infection. 08/26/2024 11:0 0 AM EDT 08/26/2024 1:25 PM EDT us Nikki Cervantes MD LAB BLOOD ORDERABLES Final Res ult [facility] [address] [place] [phone] * HIV-1/2 Antigen and Antibodies, Fourth Generation, with Reflexes (08/26/2024 11:00 AM EDT) HIV AB/AG Nonreactive Nonreactive [facility] Comment:HIV-1 p24 Ag and/or HIV-1/HIV-2 Ab not detected.A test result that is nonreactive does not exclude thepossibility of exposure to or infection with HIV-1 and/orHIV-2. Nonreactive results in this assay for individualswith prior exposure to HIV-1 and/or HIV-2 may be due toantigen and antibody levels that are below the limit ofdetection of this assay.The [facility] [employer] HIV Ag/Ab Combo assay result andsupplemental assay results should be interpreted inconjunction with the patient's clinical presentation,history and other laboratory results. If the results areinconsistent with clinical evidence, additional testing issuggested to confirm the result. 08/26/2024 11:0 0 AM EDT 08/26/2024 1:25 PM EDT Nikki Cervantes MD LAB BLOOD ORDERABLES Final Res ult [facility] [address] [place] [phone] * Chlamydia/Gonorrhea Vaginal Swab ([facility]) (08/25/2024) Chlamydia Vaginal Swab Negative Negative, Indeterminate, None Detected, Invalid, Specimen unsatisfactory for evaluation, Weakly Positive, 2+ Gonorrhea Vaginal Swab Negative Negative, Indeterminate, None Detected, Invalid, Specimen unsatisfactory for evaluation, Weakly Positive, 2+ Swab Vaginal structure / Unknown 08/25/2024 Historical Provider LAB MICROBIOLOGY - GENERA L ORDERABLES Edited Result - Final * (ABNORMAL) Lipid Panel, Standard (06/25/2023 2:26 PM EST) Triglycerides 96 <150 mg/dL [facility] Comment:Desirable Triglyceri de: less than 150 mg/dLBorderline High Triglyceride 150-199 mg/dLHigh Triglyceride: 200-499 mg/dLVery High Triglyceride: greater than or equal to 5OO mg/dL Cholesterol 179 <200 mg/dL [facility] Comment:Desirable Cholestero l: less than 200 mg/dLBorderline High Cholesterol: 200-239 mg/dLHigh Cholesterol: greater than 239 mg/dL LDL Cholesterol Calculated 118(H) <100 mg/dL [facility] Comment:Desirable LDL: less than 100 mg/dLNear Optimal/Above Optimal LDL: 110- 129 mg/dLBorderline High LDL: 130-159 mg/dLHigh LDL: 160-189 mg/dLVery High LDL: greater than or equal to 190 mg/dL HDL Cholesterol 42 >40 mg/dL [facility] Comment:Desirable HDL: great er than 40 mg/dL Note: This HDL assay may give artificially low results in patients with liver disease. Blood Venous blood specimen / Unknown 06/25/2023 2:26 PM EST 06/25/2023 4:02 PM EST us Nikki Cervantes MD LAB BLOOD ORDERABLES Final Res ult Performing Organization Address [facility]/ZIP Co de Phone Number [facility] [address] [place] [phone] * THINPREP PAP (02/08/2021 12:00 AM [...] historic and ?? current clinical information. ?? 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 [facility] Interpretation/R esult: Negative for intraepithelial lesion or malignancy. [facility] LMP: NONE [facility] Prev. BX: NONE [facility] Prev. PAP: NONE [facility] SOURCE: None given [facility] Statement Of Adequacy: SEE COMMENT [facility] Comment: Satisfactory for evaluation. Endocervical/transformation zone component absent. Age and/or menstrual status not provided 02/08/2021 us Rose Dubose [facility] PATHOLOGY ORDERABLES Final Result [facility] [address] from Last 3 Months or Most Recently Relevant to Health Maintenance Insurance [facility] C3 DENTAL-[facility] MEDICAID STAND ADULT Care Teams Oil Lease Broker Relationship Specialty Start Date End Date Nikki Cervantes MD [address] [place] [address] PCP - General Family Medicine 12/22/19
--- OUTSIDE RECORDS SUMMARY | 2024-09-09 11:42 | XMS_ITS | Encounter Summary ---
Author Organization [employer] Address [address] [facility] 7t [place] [address] Care Team Providers Care Licensed Social Worker Name Role Phone Nikki Cervantes MD Primary Care Provider [phone] Encounter Details Date Type Department Care Team ([facility] st Contact Info) Description 08/25/2024 Telephone [facility] [address] [place], [place] [phone] Nikki Cervantes MD [address] [place], [place] [phone] Social History Tobacco Use Types Packs/Day Years [...] caller accepted this outcome. Contact pt at [phone] documented in this encounter Plan of Treatment Upcoming Encounters Date Type Department Care Team (Late st Contact Info) Description 11/18/2024 10:30 AM EDT Office Visit [facility] [address] [place] [address] Nikki Cervantes MD [address] [place] [address] 02/23/2025 10:00 AM EST Office Visit [facility] [address] [place] [phone] Veronica Rebolledo documented as of this encounter Visit Diagnoses Not on filedocumented in this encounter Additional Health Concerns Assessment Noted Time PHQ-9 Depression Total Score: 9 06/25/19 24 1:42 PM EST documented as of this encounter Care Teams Licensed Social Worker Relationship Specialty Start Date End Date Nikki Cervantes MD [address] [place] [phone] PCP - General Family Medicine 12/22/19 documented as of this encounter
--- OUTSIDE RECORDS SUMMARY | 2024-09-09 11:42 | XMS_ITS | Encounter Summary ---
Author Organization [employer] Address [address] [facility] 7 [place] [address] Care Team Providers Care Voucher Clerk Name Role Phone Nikki Cervantse MD Primary Care Provider [phone] Reason for Visit * Reason Comments Gynecologic Exam Encounter Details Date Type Department Care Team (Latest Contact Info) Description 09/09/2024 9:30 AM EDT Procedure Visit [facility] [address] [place], [place] [phone] Alaina Salas CNM [address] [place], [place] [phone] Routine cervical smear (Primary Dx); Screening examination for venereal disease; Family planning counseling; Irregular periods Social History Tobacco Use Types Packs/Day Years [...] your housing situation today? I have leroy rizwan 06/25/[address] you li [...] AM EDT documented as of this encounter Last Filed Vital Signs Vital Sign Reading Time Taken Comments Blood Pressure 134/87 09/09/2024 9:49 AM EDT Pulse 84 09/09/2024 9:49 AM EDT Temperature 36.7 ??C (98 ??F) 09/09/2024 9:49 AM EDT Respiratory Rate 21 09/09/2024 9:49 AM EDT Oxygen Saturation - - Inhaled Oxygen Concentration - - Weight 89.4 kg (197 lb 3.2 oz) 09/09/2024 9:49 A M EDT Height 154.9 cm (5' 1 ) 09/09/2024 9:49 AM EDT Body Mass Index 37.26 09/09/2024 9:49 AM EDT documented in this encounter Progress Notes * Alaina Salas CNM - 09/09/2024 9:30 AM EDT Subjective Patient ID: Tracie Washington is a 24 y.o. 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 Nexplanon removed 03/2023. Slynd rx'd. Never started oral contraceptive pill but thinking she might like to now. Not planning in the next year. Last sexually active without a condom 2 days ago. LMP 09/02/2024. Menses more or less monthly, occasionally 35-42d cycle. Pap NIL 01/2021. Normal TSH, cbc, neg hcg 03/2024. Gonorrhea/Chlamydia, HIV, Hep C neg 08/2024. It doesn't look like syphilis was run. Would like oral and vaginal STI testing today. 1 AMAB partner. Denies breast symptoms, CBE deferred today. Review of Systems Genitourinary: Negative for dyspareunia, dysuria, frequency, genital sores, hematuria, menstrual problem, pelvic pain, urgency, vaginal bleeding, vaginal discharge and vaginal pain. No abnormal pap, no abnormal bleeding, no breast pain, no breast mass, no nipple discharge Objective BP 134/87 (BP Location: Left arm, Patient Position: Sitting, BP Cuff Size: Large adult) Pulse 84 Temp 98 ??F (36.7 ??C) (Oral) Resp 21 Ht 5' 1 (1.549 m) Wt 197 lb 3.2 oz (89.4 kg) BMI 37.26 kg/m?? Physical Exam Constitutional: Appearance: Normal appearance. Genitourinary: General: Normal vulva. Labia: Right: No rash, tenderness, lesion or injury. Left: No rash, tenderness, lesion or injury. Vagina: Normal. No signs of injury and foreign body. No vaginal discharge, erythema, tenderness, bleeding or lesions. Cervix: No cervical motion tenderness, discharge, friability, lesion, erythema, cervical bleeding or eversion. Uterus: Normal. Not enlarged and not tender. Adnexa: Right adnexa normal and left adnexa normal. Right: No mass, tenderness or fullness. Left: No mass, tenderness or fullness. Neurological: Mental Status: She is alert. Psychiatric: Mood and Affect: Mood normal. Behavior: Behavior normal. Assessment/Plan Diagnoses and all orders for this visit: Routine cervical smear - Pap Smear Pap today. Repeat 3 y if normal. Will contact with results. Screening examination for venereal disease - STI testing add on (NG, CT, Trich) - Chlamydia/N. Gonorrhoeae RNA, TMA, Throat; Future Oral and pap based STI testing sent. Will contact with results. May go to lab to get previously ordered syphilis testing. Family planning counseling Will take Plan B now, start Slynd tonight or tomorrow. Take at same time daily. Backup x 7 days. ACHES and normal side effects reviewed. Report if no menses by end of pack. Will check hcg if so. If negative, no need for concern. Irregular periods Menses more or less monthly, normal TSH in the past year. Will observe for now. Other orders - Drospirenone (Slynd) 4 MG tablet; Take 1 tablet by mouth Once per day. - levonorgestrel (Plan B) 1.5 MG tablet; Take 1 tablet (1.5 mg) by mouth 1 (one) time for 1 dose. documented in this encounter Plan of Treatment Upcoming Encounters Date Type Department Care Team (Late st Contact Info) Description 11/18/2024 10:30 AM EDT Office Visit [facility] [address] [place] [phone] Nikki Cervantes MD [address] [place] [phone] 02/23/2025 10:00 AM EST Office Visit [facility] [address] [place] [phone] Veronica Rebolledo Scheduled Orders Name Type Priority Associated Diagnoses Order Schedule Pap Smear Pathology and Cytology Routine Routine cervical smear Ordered: 09/09/2024 STI testing add on (NG, CT, Trich) Pathology and Cytology Routine Screening examination for venereal disease Ordered: 09/09/2024 Chlamydia/N. Gonorrhoeae RNA, TMA, Throat Microbiology Routine Screening examination for venereal disease Expected: 09/09/2024 (Approximate), Expires: 09/09/2025 documented as of this encounter Visit Diagnoses Diagnosis Routine cervical smear- Primary Screening for malignant neoplasm of the cervix Screening examination for venereal disease Family planning counseling Other general counseling and advice for contraceptive management Irregular periods documented in this encounter Additional Health Concerns Assessment Noted Time PHQ-9 Depression Total Score: 9 06/25/19 24 1:42 PM EST documented as of this encounter Care Teams Voucher Clerk Relationship Specialty Start Date End Date Nikki Cervantes MD [address] [place] [phone] PCP - General Family Medicine 12/22/19 documented as of this encounter
--- OUTSIDE RECORDS SUMMARY | 2024-09-09 11:42 | XMS_ITS | Encounter Summary ---
Author Organization [employer] Address [address] [facility] 7t [place] [address] Care Team Providers Care Emergency Department Manager Name Role Phone Nikki Cervantes MD Primary Care Provider [phone] Encounter Details Date Type Department Care Team ([facility] st Contact Info) Description 03/05/2024 Orders Only [facility] [address] [place], [place] [phone] Nikki Cervantes MD [address] [place], [place] [phone] Other constipation; Depression with anxiety; Mild intermittent [...] Description 11/18/2024 10:30 AM EDT Office Visit [facility] [address] [place] [address] Nikki Cervantes MD [address] [place] [phone] 02/23/2025 10:00 AM EST Office Visit [facility] ADULT D[facility] [address] [place] [address] Veronica Rebolledo documented as of this encounter Visit Diagnoses Diagnosis Other constipation Depression with anxiety Dysthymic disorder Mild intermittent asthma with acute exacerbation documented in this encounter Additional Health Concerns Assessment Noted Time PHQ-9 Depression Total Score: 9 06/25/19 24 1:42 PM EST documented as of this encounter Care Teams Emergency Department Manager Relationship Specialty Start Date End Date Nikki Cervantes MD [address] [place] [phone] PCP - General Family Medicine 12/22/19 documented as of this encounter
--- OUTSIDE RECORDS SUMMARY | 2024-09-09 11:42 | XMS_ITS | Clinical Summary ---
Author Organization 175 [facility] Address [address] [place] [address] Phone Care Team Providers Care Intake Counselor Name Role Phone Nikki Cervantes MD Primary Care Provider [phone] Allergies No known active allergies Medications docusate sodium (COLACE) 100 mg capsule Take 1 capsule (100 mg total) by mouth 2 (two) times a day. Active psyllium (METAMUCIL) powder Take 1 packet by mouth 3 (three) times a day. Active senna (SENOKOT) 8.6 mg tablet Take 1 tablet (8.6 mg total) by mouth 1 (one) time each day. Active lactulose (CHRONULAC) solution Take 30 mL (20 g total) by mouth 2 (two) times a day. 5400 mL 5 11/27/19 25 Active albuterol HFA (PROAIR HFA ; PROVENTIL HFA ; VENTOLIN HFA) 90 mcg/actuation inhaler Inhale 2 puffs by mouth every 6 (six) hours if needed for wheezing. 08/29/19 25 Discontinued hydrOXYzine pamoate (VISTARIL) 25 mg capsule Take 1 capsule (25 mg total) by mouth 3 (three) times a day if needed for itching. 08/29/19 25 Discontinued PARoxetine (PAXIL) 10 mg tablet Take 1 tablet (10 mg total) by mouth 1 (one) time each day in the morning. 08/29/19 25 Discontinued linaCLOtide (Linzess) 145 mcg capsule Take 1 capsule (145 mcg total) by mouth 1 (one) time each day. 90 each 5 08/29/19 25 Discontinued polyethylene glycol (GoLYTELY) 236-22.74-6.74 -5.86 gram solution Take 4,000 mL by mouth 1 (one) time for 1 dose. 4000 mL 09/03/19 Encounters Date Type Department Care Team Description 08/28/2024 10:47 AM EDT - 08/28/2024 11:59 PM EDT Hospital Encounter [facility] Xray [address] [place] [address] Alternating constipation and diarrhea Discharge Disposition: Home or Self Care 08/28/2024 10:00 AM EDT Office Visit Gastroenterology - [place] [address] [facility] [address] [place] [address] Heather Nguyễn NP Chronic constipation (Primary Dx); Abdominal bloating from Last 3 Months Social History Tobacco Use Types Packs/Day Years Used Date Smoking Tobacco: Never Assessed Comments Unknown Sex and Gender Information Value Date Recorded Sex Assigned at Female 05/07/2024 6:40 PM EST Legal Sex Female 10:09 AM EST Gender Identity Female 05/07/2024 6:40 PM EST Sexual Orientation Straight 05/07/2024 6: 40 PM EST Last Filed Vital Signs Vital Sign Reading Time Taken Comments Blood Pressure 125/80 08/28/2024 10:14 AM EDT Pulse 108 08/28/2024 10:14 AM EDT Temperature - - Respiratory Rate - - Oxygen Saturation 98% 08/28/2024 10:14 AM EDT Inhaled Oxygen Concentration - - Weight 89.8 kg (198 lb) 08/28/2024 10:14 AM EDT Height 157.5 cm (5' 2 ) 08/28/2024 10:14 AM EDT Body Mass Index 36.21 08/28/2024 10:14 AM EDT Plan of Treatment Health Maintenance Due Date Last Done Comments HPV Vaccines (3 - 3-dose series) 11/08/2017 08/16/2017, 06/26/2016 Pneumococcal Vaccine: Pediatrics (0 to 5 Years) and At-Risk Patients (6 to 64 Years) (1 of 2 - PCV) 2018 Cervical Cancer Screening: Pap Smear 2020 COVID-19 Vaccine ( season) 2023 03/22/2022, 01/18/2022 Social Influencers of Health Screening 04/01/2024 Depression [...] Completed 06/26, 07/15/2010, 12/11/2002, Additional history exists HIV Screening Completed 08/26/2024 Hepatitis C Screening Completed 08/26/2024 Hepatitis A Vaccines Aged Out No long er eligible based on patient's age to complete this topic Meningococcal B Vaccine Aged Out No l onger eligible based on patient's age to complete this topic RSV Immunization Patients Under 20 months Aged Out No longer eligible based on patient's age to complete this topic Procedures Procedure Name Priority Date/Time Associated Diagnosis Comments XR ABDOMEN 1 VIEW Routine 08/28/2024 11: 05 AM EDT Alternating constipation and diarrhea from Last 3 Months Results * XR Abdomen 1 View (08/28/2024 11:05 AM EDT) Anatomical Region Laterality Modality Body Radiographic Linda ging 08/28/2024 11:1 6 AM EDT Impressions 08/28/2024 11:17 AM EDT Nonobstructive bowel gas pattern. There is evidence of moderate constipation. Code 90909 -------- FINAL REPORT -------- Dictated By: Santy Gilliam Dictated Date: 08/28/2024 11:16 ET Assigned Physician: Santy Gilliam Reviewed and Electronically Signed By: Santy Gilliam Signed Date: 08/28/2024 11:17 ET Workstation ID: [id number] Transcribed By: Self Edit Transcribed Date: 08/28/2024 11:16 ET Narrative 08/28/2024 11:17 AM EDT HISTORY: The patient is a 24-year-old female with alternating constipation and diarrhea. FINDINGS: Supine radiographs of the abdomen, without previous for comparison, demonstrate normal appearance of the bony structures. The bowel gas pattern is nonobstructive. A moderate amount of fecal material is present in the colon from the proximal ascending colon to the mid descending colon, consistent with moderate constipation. No mass or radiopaque calculus is seen. Procedure Note Santy Gilliam MD - 08/28/2024 HISTORY: The patient is a 24-year-old female with alternating constipationand diarrhea. FINDINGS: Supine radiographs of the abdomen, without previous forcomparison, demonstrate normal appearance of the bony structures. Thebowel gas pattern is nonobstructive. A moderate amount of fecal materialis present in the colon from the proximal ascending colon to the middescending colon, consistent with moderate constipation. No mass orradiopaque calculus is seen. IMPRESSION: Nonobstructive bowel gas pattern. There is evidence of moderateconstipation. Code 36999 -------- FINAL REPORT -------- Dictated By: Santy Gilliam Dictated Date: 08/28/2024 11:16 ET Assigned Physician: Santy Gilliam Reviewed and Electronically Signed By: Santy Gilliam Signed Date: 08/28/2024 11:17 ET Workstation ID: [id number] Transcribed By: Self Edit Transcribed Date: 08/28/2024 11:16 ET Heather Nguyễn NP IMG XR PROCEDURES Final Result from Last 3 Months Insurance MEDICAID - [place] Care Teams Intake Counselor Relationship Specialty Start Date End Date Nikki Cervantes MD [address] [place] [address] PCP - General Rn Care Manager 04/01/24
--- OUTSIDE RECORDS SUMMARY | 2024-09-09 11:42 | XMS_ITS | Encounter Summary ---
Author Organization [employer] Address [address] [facility] [address] 7t [place] [address] Care Team Providers Care Compensation Adjuster Name Role Phone Nikki Cervantes MD Primary Care Provider [phone] Encounter Details Date Type Department Care Team ([facility] st Contact Info) Description 07/18/2023 Orders Only [facility] MEDICINE [address] [place], [place] [phone] Nikki Cervantes MD [address] [place], [place] [phone] Low TSH level (Primary Dx) Social History [...] Description 11/18/2024 10:30 AM EDT Office Visit [facility] MEDICINE [address] [place] [address] Nikki Cervantes MD [address] [place] [address] 02/23/2025 10:00 AM EST Office Visit [facility] ADULT DENTAL [address] [place] [address] Veronica Rebolledo documented as of this encounter Procedures Procedure Name Priority Date/Time Associated Diagnosis Comments T3, TOTAL Routine 07/27/2023 12:59 PM EDT Low TSH level documented in this encounter Results * T3, Total (07/27/2023 12:59 PM EDT) T3, Total 131 76 - 181 ng/dL [facility] Comment:THIS TEST WAS PERFOR MED AT:[employer] [address] [phone] WRIGHT MD Blood Venous blood specimen / Unknown 07/27/2023 12:59 PM EDT 07/27/2023 4:06 PM EDT us Nikki Cervantes MD LAB BLOOD ORDERABLES Final Res ult [facility] [address] [place] [address] [phone] documented in this encounter Visit Diagnoses Diagnosis Low TSH level- Primary documented in this encounter Additional Health Concerns Assessment Noted Time PHQ-9 Depression Total Score: 9 06/25/19 24 1:42 PM EST documented as of this encounter Care Teams Compensation Adjuster Relationship Specialty Start Date End Date Nikki Cervantes MD [address] [place] [address] PCP - General Family Medicine 12/22/19 documented as of this encounter
--- OUTSIDE RECORDS SUMMARY | 2024-09-09 11:42 | XMS_ITS | Encounter Summary ---
Author Organization [employer] Address 75 [facility] 7t [place] [address] Care Team Providers Care Teletype Operator Name Role Phone Nikki Cervantes MD Primary Care Provider [phone] Encounter Details Date Type Department Care Team (Latest Contact Info) Description 09/09/2024 Travel Social History Tobacco Use Types Packs/Day Years [...] Description 11/18/2024 10:30 AM EDT Office Visit [facility] MEDICINE [address] [place] [address] Nikki Cervantes MD [address] [place] [address] 02/23/2025 10:00 AM EST Office Visit [facility] ADULT DENTAL [address] [place] [address] Veronica Rebolledo documented as of this encounter Visit Diagnoses Not on filedocumented in this encounter Additional Health Concerns Assessment Noted Time PHQ-9 Depression Total Score: 9 06/25/19 24 1:42 PM EST documented as of this encounter Care Teams Teletype Operator Relationship Specialty Start Date End Date Nikki Cervantes MD [address] [place] [address] PCP - General Family Medicine 12/22/19 documented as of this encounter
[2024-09-10 03:32] LABS: Syphilis Screen Nonreactive (Nonreactive)
== END 2024-09-09 10:30 | disposition home or self-care (01) ==
LOC: HO.HHCL 10:29
PROVIDERS: Visit Provider General Practice
DX: Z11.3 Encounter for screening for infections with a predominantly sexual mode of transmission (principal); Z29.89 Encounter for other specified prophylactic measures
CPT/HCPCS: 36415; 86780

== ENCOUNTER 2024-09-09 17:10 | Outpatient (REF) | payer MEDICAID, SELFPAY ==
--- OUTSIDE RECORDS SUMMARY | 2024-09-09 17:13 | XMS_ITS | Clinical Summary ---
Author Organization 175 [facility] Address [address] [place] [address] Phone Care Team Providers Care Work Order Detailer Name Role Phone Nikki Cervantes MD Primary Care Provider [phone] Allergies No known active allergies Medications docusate [...] - 08/28/2024 11:59 PM EDT Hospital Encounter Xray [address] [place] [address] Alternating constipation and diarrhea Discharge Disposition: Home or Self Care 08/28/2024 10:00 AM EDT Office Visit Gastroenterology - [place] [address] [facility] [place] [address] [place] [address] Heather Nguyễn NP Chronic constipation [...] There is evidence of moderate constipation. Code 92663 -------- FINAL REPORT -------- Dictated By: Santy Gilliam Dictated Date: 08/28/2024 11:16 ET Assigned Physician: Santy Gilliam Reviewed and Electronically Signed By: Santy Gilliam Signed Date: 08/28/2024 11:17 ET Workstation ID: [id number] Transcribed By: Self Edit Transcribed Date: 08/28/2024 [...] pattern. There is evidence of moderateconstipation. Code 81765 -------- FINAL REPORT -------- Dictated By: Santy Gilliam Dictated Date: 08/28/2024 11:16 ET Assigned Physician: Santy Gilliam Reviewed and Electronically Signed By: Santy Gilliam Signed Date: 08/28/2024 11:17 ET Workstation ID: [id number] Transcribed By: Self Edit Transcribed Date: 08/28/2024 11:16 ET Heather Nguyễn NP IMG XR PROCEDURES Final Result from Last 3 Months Insurance MEDICAID - [place] Care Teams Work Order Detailer Relationship Specialty Start Date End Date Nikki Cervantes MD [address] [place] [address] PCP - General Arbor Press Operator 04/01/24
--- OUTSIDE RECORDS SUMMARY | 2024-09-09 17:13 | XMS_ITS | Clinical Summary ---
Author Organization [employer] Address 75 [facility] 7t [place] [address] Care Team Providers Care Site Reliability Engineer Name Role Phone Nikki Cervantes MD Primary Care Provider [phone] Allergies No known active allergies Medications * [...] Description 09/09/2024 9:30 AM EDT Procedure Visit [facility] MEDICINE [address] [place] [address] Alaina Salas CNM Routine cervical smear (Primary Dx); Screening examination for venereal disease; Family planning counseling; Irregular periods 09/09/2024 Travel 08/29/2024 Orders Only [facility] [address] [place] [address] Berta Gandhi RN 08/26/2024 Orders Only [facility] [address] [place], [place] [phone] Nikki Cervantes MD 08/25/2024 Orders Only [facility] [address] [place] [address] Jennifer Chauhan RN Need for prophylaxis against sexually transmitted diseases (Primary Dx); Screening examination for STD (sexually transmitted disease) 08/25/2024 Patient Outreach [address] [address] Tyrell Be Care Coordination (CHW outreach for SDOH PT-1 and food needs-referral completed /) 08/25/2024 Telephone [facility] [address] [place] [phone] Nikki Cervantes MD 08/25/[address] [address] Nikki Cervantes MD Durable Medical Equipment 08/25/[address] [address] Nikki Cervantes MD PT1 07/30/[address] [address] Nikki Cervantes MD RECALL 07/04/2024 Population Health Risk Score [facility] () Department [address] [place] [phone] Provider, Population Health Generic 06/19/2024 9:30 AM EST Office Visit [facility] [address] [place] [address] Nena Osuna, OD Retinal hole of left eye (Primary Dx); White without pressure of peripheral retina of left eye; Exophoria 06/19/2024 9:00 AM EST Office Visit [facility] [address] [place] [address] Nena Osuna, OD Myopia of both eyes [...] Description 11/18/2024 10:30 AM EDT Office Visit [facility] [address] [place] [address] Nikki Cervantes MD [address] [place] [address] 02/23/2025 10:00 AM EST Office Visit [facility] ADULT DENTAL [address] [place] [address] Veronica Rebolledo Health Maintenance Due Date Last [...] 06/24/2024 06/25/2023, 06/25/19 SDOH Screening 06/24/2024 06/25/2023 Tobacco Screening 06/20/2025 06/20/2024 Family Planning (PISQ) 09/09/2025 09/09/2024 Lipid Panel 06/24/2028 06/25/2023 DTaP/Tdap/Td Vaccines (8 [...] 08/26/2024 11:00 AM EDT CHLAMYDIA/GONORRHEA VAGINAL SWAB ([place] DP) Routine 08/25/2024 LIPID PANEL, STANDARD Routine 06/25/2023 2:26 PM EST Elevated blood pressure reading THINPREP PAP Routine 02/08/2021 12:00 AM EDT from Last 3 Months or Most Recently Relevant to Health Maintenance Results * Hepatitis C Antibody with Reflex to HCV, RNA, Quantitative, Real-Time PCR (08/26/2024 11:00 AM EDT) Hepatitis C Antibody Nonreactive Nonreactive [facility] Comment:Antibodies to HCV no t detected; does not exclude early acuteHCV infection. 08/26/2024 11:0 0 AM EDT 08/26/2024 1:25 PM EDT us Nikki Cervantes MD LAB BLOOD ORDERABLES Final Res ult [facility] [address] [place] [phone] * HIV-1/2 Antigen and Antibodies, Fourth Generation, with Reflexes (08/26/2024 11:00 AM EDT) HIV AB/AG Nonreactive Nonreactive [facility] Comment:HIV-1 p24 Ag and/or HIV-1/HIV-2 Ab not detected.A test result that is nonreactive does not exclude thepossibility of exposure to or infection with HIV-1 and/orHIV-2. Nonreactive results in this assay for individualswith prior exposure to HIV-1 and/or HIV-2 may be due toantigen and antibody levels that are below the limit ofdetection of this assay.The [employer] HIV Ag/Ab Combo assay result andsupplemental assay results should be interpreted inconjunction with the patient's clinical presentation,history and other laboratory results. If the results areinconsistent with clinical evidence, additional testing issuggested to confirm the result. 08/26/2024 11:0 0 AM EDT 08/26/2024 1:25 PM EDT Nikki Cervantes MD LAB BLOOD ORDERABLES Final Res ult [facility] [address] [place] [address] [phone] * Chlamydia/Gonorrhea Vaginal Swab ([facility]) (08/25/2024) Chlamydia Vaginal Swab Negative Negative, [...] 2:26 PM EST) Triglycerides 96 <150 mg/dL [facility] Comment:Desirable Triglyceri de: less than 150 mg/dLBorderline High Triglyceride 150-199 mg/dLHigh Triglyceride: 200-499 mg/dLVery High Triglyceride: greater than or equal to 5OO mg/dL Cholesterol 179 <200 mg/dL [facility] Comment:Desirable Cholestero l: less than 200 mg/dLBorderline High Cholesterol: 200-239 mg/dLHigh Cholesterol: greater than 239 mg/dL LDL Cholesterol Calculated 118(H) <100 mg/dL [facility] Comment:Desirable LDL: less than 100 mg/dLNear Optimal/Above Optimal LDL: 110- 129 mg/dLBorderline High LDL: 130-159 mg/dLHigh LDL: 160-189 mg/dLVery High LDL: greater than or equal to 190 mg/dL HDL Cholesterol 42 >40 mg/dL [facility] Comment:Desirable HDL: great er than 40 mg/dL Note: This HDL assay may give artificially low results in patients with liver disease. Blood Venous blood specimen / Unknown 06/25/2023 2:26 PM EST 06/25/2023 4:02 PM EST us Nikki Cervantes MD LAB BLOOD ORDERABLES Final Res ult Performing Organization Address [facility]/ZIP Co de Phone Number [facility] [address] [place] [phone] * THINPREP PAP (02/08/2021 12:00 AM [...] historic and ?? current clinical information. ?? 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 [facility] Interpretation/R esult: Negative for intraepithelial lesion or malignancy. [facility] LMP: NONE [facility]IV[facility] Prev. BX: NONE [facility]IV[facility] Prev. PAP: NONE [facility]IV[facility] SOURCE: None given [facility] Statement Of Adequacy: SEE COMMENT [facility] Comment: Satisfactory for evaluation. Endocervical/transformation zone component absent. Age and/or menstrual status not provided 02/08/2021 us Rose Dubose BODY SHOP WORKER LAB PATHOLOGY ORDERABLES Final Result [facility] [address] from Last 3 Months or Most Recently Relevant to Health Maintenance Insurance [facility] C3 DENTAL-[facility] MEDICAID STAND ADULT Care Teams Site Reliability Engineer Relationship Specialty Start Date End Date Nikki Cervantes MD [address] [place] [address] PCP - General Family Medicine 12/22/19
--- OUTSIDE RECORDS SUMMARY | 2024-09-09 17:13 | XMS_ITS | Encounter Summary ---
Author Organization [employer] Address 75 [facility] 7 [place] [address] Care Team Providers Care Steel Heater Name Role Phone Nikki Cervantes MD Primary Care Provider [phone] Reason for Visit * Reason Onset Date Comments PT1 08/25/2024 Encounter Details Date Type Department Care Team ([facility] st Contact Info) Description 08/25/2024 Telephone [facility] MEDICINE [address] [place], [place] [phone] Nikki Cervantes MD [address] [place], [place] [phone] PT1 Social History Tobacco Use Types Packs/Day [...] Gale[place] - 08/25/2024 10:41 AM EDT Patient career services officer Alice martinez requesting PT1 Home Address verified: Y/N: Yes Provider name or facility name: [facility] Facility Address: [address] [place] [address] Escort needed: Y/N: Yes Do you have a wheelchair: Y/N: No If yes- Manual or electric: n/a Visits: 3 x a month PT1 Home Address verified: Y/N: Yes Provider name or facility name: [facility] - Gastroenterology Facility Address: [address] [place] [address] [address], [place] [address] Escort needed: Y/N: Yes Do you have a wheelchair: Y/N: No If yes- Manual or electric: n/a Visits: 2 x a month documented in this encounter Plan of Treatment Upcoming Encounters Date Type Department Care Team ([facility] st Contact Info) Description 11/18/2024 10:30 AM EDT Office Visit [facility] MEDICINE [address] [place] [address] Nikki Cervantes MD [address] [place] [address] 02/23/2025 10:00 AM EST Office Visit [facility] ADULT DENTAL [address] [place] [address] Veronica Rebolledo documented as of this encounter Visit Diagnoses Not on filedocumented in this encounter Additional Health Concerns Assessment Noted Time PHQ-9 Depression Total Score: 9 06/25/19 24 1:42 PM EST documented as of this encounter Care Teams Steel Heater Relationship Specialty Start Date End Date Nikki Cervantes MD [address] [place] [address] PCP - General Family Medicine 12/22/19 documented as of this encounter
--- OUTSIDE RECORDS SUMMARY | 2024-09-09 17:13 | XMS_ITS | Encounter Summary ---
Author Organization [employer] Address 75 [facility] 7 [place] [address] Care Team Providers Care Lap Checker Name Role Phone Nikki Cervantes MD Primary Care Provider [phone] Reason for Visit * Reason Comments Gynecologic Exam Encounter Details Date Type Department Care Team (Latest Contact Info) Description 09/09/2024 9:30 AM EDT Procedure Visit [facility] MEDICINE [address] [place], [place] [phone] Alaina Salas CNM [address] [place], [place] [phone] Routine cervical smear (Primary Dx); Screening examination [...] a 24 y.o. female who presents for PAWN BROKER visit Here for pap. Nexplanon removed 03/2023. [...] Description 11/18/2024 10:30 AM EDT Office Visit [facility] MEDICINE [address] [place] [phone] Nikki Cervantes MD [address] [place] [phone] 02/23/2025 10:00 AM EST Office Visit [facility] ADULT DENTAL [address] [place] [phone] Veronica Rebolledo Scheduled Orders Name Type Priority [...] documented as of this encounter Care Teams Lap Checker Relationship Specialty Start Date End Date Nikki Cervantes MD [address] [place] [phone] PCP - General Family Medicine 12/22/19 documented as of this encounter
--- OUTSIDE RECORDS SUMMARY | 2024-09-09 17:13 | XMS_ITS | Encounter Summary ---
Author Organization [employer] Address 75 [facility] 7t [place] [address] Care Team Providers Care Gas Leak Inspector Name Role Phone Nikki Cervantes MD Primary Care Provider [phone] Encounter Details Date Type Department Care Team ([facility] st Contact Info) Description 08/25/2024 Telephone [facility] MEDICINE [address] [place], [place] [phone] Nikki Cervantes MD [address] [place], [place] [phone] Social History Tobacco Use Types Packs/Day Years [...] caller accepted this outcome. Contact pt at [phone] documented in this encounter Plan of Treatment Upcoming Encounters Date Type Department Care Team (Late st Contact Info) Description 11/18/2024 10:30 AM EDT Office Visit [facility] MEDICINE [address] [place] [phone] Nikki Cervantes MD [address] [place] [address] 02/23/2025 10:00 AM EST Office Visit [facility] ADULT DENTAL [address] [place] [phone] Veronica Rebolledo documented as of this encounter Visit Diagnoses Not on filedocumented in this encounter Additional Health Concerns Assessment Noted Time PHQ-9 Depression Total Score: 9 06/25/19 24 1:42 PM EST documented as of this encounter Care Teams Gas Leak Inspector Relationship Specialty Start Date End Date Nikki Cervantes MD [address] [place] [address] PCP - General Family Medicine 12/22/19 documented as of this encounter
--- OUTSIDE RECORDS SUMMARY | 2024-09-09 17:13 | XMS_ITS | Encounter Summary ---
Author Organization [employer] Address [address] [facility] [address] [place] [address] Care Team Providers Care Currency Machine Operator Name Role Phone Nikki Cervantes MD Primary Care Provider [phone] Encounter Details Date Type Department Care Team [...] Office Visit [facility] [address] [place] [address] Nikki Cervantes MD [address] [place] [address] 02/23/2025 10:00 AM EST Office Visit [facility] ADULT DENTAL [address] [place] [address] Veronica Rebolledo documented as of this encounter Visit Diagnoses Not on filedocumented in this encounter Additional Health Concerns Assessment Noted Time PHQ-9 Depression Total Score: 9 06/25/19 24 1:42 PM EST documented as of this encounter Care Teams Currency Machine Operator Relationship Specialty Start Date End Date Nikki Cervantes MD [address] [place] [phone] PCP - General Family Medicine 12/22/19 documented as of this encounter
--- OUTSIDE RECORDS SUMMARY | 2024-09-09 17:13 | XMS_ITS | Encounter Summary ---
Author Organization [employer] Address [address] [facility] 7t [place] [address] Care Team Providers Care Pharmaceutical Compounding Supervisor Name Role Phone Nikki Cervantes MD Primary Care Provider [phone] Encounter Details Date Type Department Care Team ([facility] st Contact Info) Description 03/05/2024 Orders Only [facility] MED[facility] [address] [place], [place] [phone] Nikki Cervantes MD [address] [place], [place] [phone] Other constipation; Depression with anxiety; Mild intermittent [...] Description 11/18/2024 10:30 AM EDT Office Visit [facility] MED[facility]INE [address] [place] [address] Nikki Cervantes MD [address] [place] [phone] 02/23/2025 10:00 AM EST Office Visit [facility] ADULT DENTAL [address] [place] [address] Veronica Rebolledo documented as of this encounter Visit Diagnoses Diagnosis Other constipation Depression with anxiety Dysthymic disorder Mild intermittent asthma with acute exacerbation documented in this encounter Additional Health Concerns Assessment Noted Time PHQ-9 Depression Total Score: 9 06/25/19 24 1:42 PM EST documented as of this encounter Care Teams Pharmaceutical Compounding Supervisor Relationship Specialty Start Date End Date Nikki Cervantes MD [address] [place] [phone] PCP - General Family Medicine 12/22/19 documented as of this encounter
[2024-09-11 19:48] LABS: C. trachomatis RNA TMA NOT DETECTED (NOT DETECTED); N. gonorrhoeae RNA TMA NOT DETECTED (NOT DETECTED); Trichomonas (NAAT) NOT DETECTED (NOT DETECTED)
[2024-09-12 09:23] LABS: C. Trachomatis RNA TMA, Throat NOT DETECTED; N. gonorrhoeae RNA TMA, Throat NOT DETECTED
== END 2024-09-09 17:11 | disposition home or self-care (01) ==
LOC: HO.HHCLNP 17:10
PROVIDERS: Visit Provider Advanced Practice Midwife
DX: Z12.4 Encounter for screening for malignant neoplasm of cervix (principal); Z11.3 Encounter for screening for infections with a predominantly sexual mode of transmission
CPT/HCPCS: 87491; 87591; 87661; 88175

== ENCOUNTER 2024-09-29 18:46 | Emergency (ER) | payer MEDICAID, SELFPAY ==
--- NOTE | 2024-09-29 | ECG_ITS ---
Test Reason : cp Blood Pressure : */* mmHG Vent. Rate : 71 BPM Atrial Rate : 71 BPM P-R Int : 156 ms QRS Dur : 76 ms QT Int : 372 ms P-R-T Axes : 50 36 22 degrees QTcB Int : 404 ms Normal sinus rhythm with sinus arrhythmia Normal ECG When compared with ECG of 26-Dec-2018 17:49, No significant change was found Referred By: Generic ED Physician Electronically Signed By: SHERLY HERNANDEZ MD
[2024-09-29 19:05] VITALS: BP 124/61; PULSE 76; RESP 18; TEMP 36.6; O2SAT 99; BMI 34.7
--- NOTE | 2024-09-29 19:05 | ED_ITS ---
HPI - General Adult General Chief complaint: Chest Pain Stated complaint: chest pain SOB Related Data Home Medications ?Medication ?Instructions ?Recorded ?Confirmed ibuprofen 600 mg tablet 600 mg PO Q8H PRN 01/18/21 Previous Rx's ?Medication ?Instructions ?Recorded cephalexin 500 mg capsule (Keflex) 500 mg PO QID #28 c aps 05/21/20 doxycycline hyclate 100 mg tablet 100 mg PO BID #14 ta bs 05/21/20 doxycycline hyclate 100 mg capsule 100 mg PO BID #20 c aps 07/22/20 albuterol sulfate 90 mcg/actuation 1 inh inhalation QI D PRN shortness 03/12/21 aerosol inhaler of breath or wheezing #6.7 g fredis amoxicillin 875 mg-potassium 1 tab PO BID #14 tabs clavulanate 125 mg tablet (Augmentin) azithromycin 250 mg tablet See Rx Instructions PO .COM PLEX #6 03/12/21 (Zithromax Z-Don) tabs prednisone 20 mg tablet 40 mg (2 x 20 mg) PO DAILY # 10 tabs 03/12/21 cetirizine 10 mg capsule (Zyrtec) 10 mg PO DAILY #14 c aps 08/22/21 fluticasone propionate 50 1 spray intranasal Q12H #16 grams 08/22/21 mcg/actuation nasal spray,suspension (Flonase Allergy Relief) lactulose 10 gram oral packet 20 g PO BID #15 ea 07/27 cefuroxime axetil 250 mg tablet 250 mg PO BID 7 days # 14 tabs 03/24/23 ibuprofen 600 mg tablet 600 mg PO Q6H PRN fever or p ain 03/24/23 #30 tabs amoxicillin 875 mg-potassium 1 tab PO Q12H 5 days #10 tabs 02/25/24 clavulanate 125 mg tablet doxycycline hyclate 100 mg capsule 100 mg PO BID 7 day s #14 caps 02/25/24 prednisone 20 mg tablet 40 mg (2 x 20 mg) PO DAILY 5 days 02/25/24 #10 tabs Allergies Allergy/AdvReac Type Severity Reaction Status Date / Time No Known Allergies Allergy Verified 09/29/24 19:06 [facility] Past Medical History Medical History Cellulitis of umbilicus Asthma Surgical History Hx of umbilical hernia repair Social History Social History Alcohol intake: never Advance Directives: No Advance Directives Information Provided: No Do you have a plan to hurt others: No Plan Physical Exam ED Vital Signs: BMI result Body Mass Index 34.7 Course Course Course Narrative: RME, this is a rapid medical exam performed by Jair Saldivar please refer to primary provider for complete H&P- 24 year old female presents for evaluation of chest pain. Plan for cardiac workup Medical Decision Making Lab Data 09/29/24 19:17 09/29/24 19:17 Labs: Lab Results 09/29/24 Range/Units 19:17 WBC 7.1 (4.8-10.8) X10*3/uL RBC 4.28 (4.20-5.50) X10*6/uL Hgb 12.2 (12.0-16.0) g/dl Hct 37.0 (37.0-47.0) % MCV 86.4 (80.0-98.0) fL MCH 28.5 (27.0-33.0) pg MCHC 33.0 (31.0-35.0) g/dl RDW 12.5 (11.0-16.0) % Plt Count 286 (160-400) X10*3/uL MPV 10.4 (9.4-12.3) fL Immature Gran % (Auto) 0.3 (0.0-0.4) % Neut % (Auto) 59.5 (45-73) % Lymph % (Auto) 32.5 (20-40) % Kidder % (Auto) 6.5 (2-11) % Eos % (Auto) 0.6 (0-4) % Baso % (Auto) 0.6 (0-2) % Lymph # (Auto) 2.3 (1.2-4.9) X10*3/uL Kidder # (Auto) 0.5 (0.1-1.2) X10*3/uL Eos # (Auto) 0.0 (0.0-0.4) X10*3/uL Baso # (Auto) 0.0 (0.0-0.2) X10*3/uL Abs Immat Gran (auto) 0.02 (0.00-0.03) X10*3/uL Absolute Neuts (auto) 4.2 (2.0-8.3) x10*3/uL Absolute Nucleated RBC 0.000 (0.0-0.012) X10*3/uL Nucleated RBC % (auto) 0.0 (0.0-0.2) /100WBC Sodium 139 (135-145) mmol/L Potassium 3.8 (3.3-5.1) mmol/L Chloride 109 H (96-108) mmol/L Carbon Dioxide 23 (22-29) mmol/L Anion Gap 11 L (12-20) BUN 16 (9-16) mg/dL Creatinine 0.73 (0.5-1.4) mg/dL Estim Creat Clear Calc 119.9 Estimated GFR > 60 Random Glucose 88 (60-115) mg/dL Calcium 9.2 (8.4-10.2) mg/dL Magnesium 1.8 (1.6-2.6) mg/dL Total Bilirubin 0.1 (0.0-1.0) mg/dL AST 23 (5-31) U/L ALT 20 (0-31) U/L Alkaline Phosphatase 62 (39-117) U/L Troponin I High Sens < 2.7 (<3.5-17.0) ng/L Total Protein 6.8 (6.5-8.0) g/dL Albumin 4.4 (3.5-5.0) g/dL Lipase 17 (8-78) U/L Beta HCG, Quant < 2 mIU/mL Discharge Plan Discharge Clinical Impression: Chest pain Patient Disposition: Left W/O Completing Treatment Prescriptions: No Action cephalexin [Keflex] 500 mg capsule 500 mg PO QID Qty: 28 0RF doxycycline hyclate 100 mg tablet 100 mg PO BID Qty: 14 0RF doxycycline hyclate 100 mg capsule 100 mg PO BID Qty: 20 0RF Zyrtec 10 mg capsule 10 mg PO DAILY Qty: 14 0RF fluticasone propionate [Flonase Allergy Relief] 50 mcg/actuation spray,suspension 1 spray intranasal Q12H Qty: 16 0RF Rx Instructions: administer into each nostril azithromycin [Zithromax Z-Don] 250 mg tablet See Rx Instructions .ROUTE .COMPLEX Qty: 6 0RF Rx Instructions: take 500 mg today (day 1), then 250 mg for 4 days (days 2-5) prednisone 20 mg tablet 40 mg PO DAILY Qty: 10 0RF albuterol sulfate 90 mcg/actuation HFA aerosol inhaler 1 inh inhalation QID PRN (Reason: shortness of breath or wheezing) Qty: 6.7 0RF amoxicillin-pot clavulanate [Augmentin] 875-125 mg tablet 1 tab PO BID Qty: 14 0RF lactulose 10 gram packet 20 g PO BID Qty: 15 0RF cefuroxime axetil 250 mg tablet 250 mg PO BID 7 Days Qty: 14 0RF ibuprofen 600 mg tablet 600 mg PO Q6H PRN (Reason: fever or pain) Qty: 30 0RF doxycycline hyclate 100 mg capsule 100 mg PO BID 7 Days Qty: 14 0RF amoxicillin-pot clavulanate 875-125 mg tablet 1 tab PO Q12H 5 Days Qty: 10 0RF prednisone 20 mg tablet 40 mg PO DAILY 5 Days Qty: 10 0RF ibuprofen 600 mg tablet 600 mg PO Q8H PRN Discharge Date/Time: 09/30/24 00:27
[2024-09-29 19:29] LABS: MANUAL DIFF FLAG NO
[2024-09-29 19:32] LABS: Basophils Percent Auto 0.6 % (0-2); Eosinophils Percent Auto 0.6 % (0-4); Hemoglobin 12.2 g/dl (12.0-16.0); Imm Gran Abs Auto 0.02 X10*3/uL (0.00-0.03); Imm Gran Pct Auto 0.3 % (0.0-0.4); Lymphocytes Absolute Auto 2.3 X10*3/uL (1.2-4.9); Lymphocytes Percent Auto 32.5 % (20-40); Mean Corpuscular Hemoglobin 28.5 pg (27.0-33.0); Mean Corpuscular Volume 86.4 fL (80.0-98.0); Mean Platelet Volume 10.4 fL (9.4-12.3); Monocytes Absolute Auto 0.5 X10*3/uL (0.1-1.2); Monocytes Percent Auto 6.5 % (2-11); Neutrophils Absolute Auto 4.2 x10*3/uL (2.0-8.3); Neutrophils Percent Auto 59.5 % (45-73); Platelet Count 286 X10*3/uL (160-400); Red Blood Count 4.28 X10*6/uL (4.20-5.50); Red Cell Distribution Width 12.5 % (11.0-16.0); White Blood Count 7.1 X10*3/uL (4.8-10.8)
[2024-09-29 19:47] LABS: Alanine Aminotransferase 20 U/L (0-31); Albumin Level 4.4 g/dL (3.5-5.0); Alkaline Phosphatase 62 U/L (39-117); Anion Gap 11 (12-20); Aspartate Amino Transferase 23 U/L (5-31); Bilirubin Total 0.1 mg/dL (0.0-1.0); Blood Urea Nitrogen 16 mg/dL (9-16); Calcium 9.2 mg/dL (8.4-10.2); Carbon Dioxide 23 mmol/L (22-29); Chloride 109 mmol/L (96-108); Creatinine Clr Calc Pharmacy 119.9; Estimated Glomerular Filt Rate > 60; Glucose Random 88 mg/dL (60-115); Lipase 17 U/L (8-78); Magnesium 1.8 mg/dL (1.6-2.6); Potassium 3.8 mmol/L (3.3-5.1); Sodium 139 mmol/L (135-145); Total Protein 6.8 g/dL (6.5-8.0)
[2024-09-29 19:50] LABS: HCG Quantitative < 2 mIU/mL; Troponin-I High Sensitivity < 2.7 ng/L (<3.5-17.0)
== END 2024-09-30 00:27 | disposition left against medical advice (07) ==
PROVIDERS: Physician Assistant; Emergency Provider Emergency Medicine; PCP General Practice
DX: R07.9 Chest pain, unspecified (principal); R06.02 Shortness of breath; J45.909 Unspecified asthma, uncomplicated
CPT/HCPCS: 36415; 80053; 83690; 83735; 84484; 84702; 85025; 93005; 99283

== ENCOUNTER → 2024-09-29 18:52 | Outpatient (BNV) | payer MEDICAID, SELFPAY | PROVIDERS: Emergency Provider Emergency Medicine; PCP General Practice; Visit Provider Internal Medicine Cardiovascular Disease | DX: R07.9 Chest pain, unspecified (principal) | CPT/HCPCS: 93010 ==

== ENCOUNTER 2024-11-18 10:56 | Outpatient (REF) | payer MEDICAID, SELFPAY ==
--- OUTSIDE RECORDS SUMMARY | 2024-11-18 12:11 | XMS_ITS | Clinical Summary ---
Author Organization [facility] Address [address] [place] [address] Phone Care Team Providers Care Cost Estimator Name Role Phone Nikki Cervantes MD Primary Care Provider [phone] Allergies No known active allergies Medications docusate [...] 2 (two) times a day. 5400 mL 08/28/2024 Active Encounters Date Type Department Care Team Description 08/28/2024 10:47 AM EDT - 08/28/2024 11:59 PM EDT Hospital Encounter [facility] Xray [address] [place] [address] Alternating constipation and diarrhea Discharge Disposition: Home or Self Care 08/28/2024 10:00 AM EDT Office Visit Gastroenterology [facility] 175 [facility] 175 [facility] [address] [place] [phone] Heather Nguyễn NP Chronic constipation (Primary [...] 5 Years) and At-Risk Patients (6 to 49 Years) (1 of 2 - PCV) 2018 Cervical Cancer Screening: Pap Smear 2020 COVID-19 Vaccine ( season) 2023 03/22/2022, 01/18/2022 Social Influencers of Health Screening 04/01/2024 Depression Screening 04/23/2024 Influenza Vaccine (#1) 2024 05/31/2022, 2016 Cholesterol Screening (Lipid Panel) 06/24/2028 06/25/2023 DTaP,Tdap,and [...] There is evidence of moderate constipation. Code 69164 -------- FINAL REPORT -------- Dictated By: Santy Gilliam Dictated Date: 08/28/2024 11:16 ET Assigned Physician: Santy Gilliam Reviewed and Electronically Signed By: Santy Gilliam Signed Date: 08/28/2024 11:17 ET Workstation ID: [id number] Transcribed By: Self Edit Transcribed Date: 08/28/2024 [...] pattern. There is evidence of moderateconstipation. Code 10215 -------- FINAL REPORT -------- Dictated By: Santy Gilliam Dictated Date: 08/28/2024 11:16 ET Assigned Physician: Santy Gilliam Reviewed and Electronically Signed By: Santy Gilliam Signed Date: 08/28/2024 11:17 ET Workstation ID: [id number] Transcribed By: Self Edit Transcribed Date: 08/28/2024 11:16 ET Heather Nguyễn NP IMG XR PROCEDURES Final Result from Last 3 Months Insurance MEDICAID - [place] Care Teams Cost Estimator Relationship Specialty Start Date End Date Nikki Cervantes MD [address] [place] [address] PCP - General Fur Blower Operator 04/01/24
--- OUTSIDE RECORDS SUMMARY | 2024-11-18 12:11 | XMS_ITS | Encounter Summary ---
Author Organization [employer] Address [address] [facility] 7t [place] [address] Care Team Providers Care Pharmaceutical Engineer Name Role Phone Nikki Cervantes MD Primary Care Provider [phone] José Carrasco RN Unavailable [phone] Rosalina Sepulveda Unavailable Encounter Details Date Type Department Care Team (Late st Contact Info) Description 07/18/2023 Orders Only [facility] MEDICINE [address] [place], [place] [phone] Nikki Cervantes MD [address] [place], [place] [phone] Low TSH level (Primary Dx) Social History [...] Care Team (Late st Contact Info) Description 02/10/2025 1:30 PM EDT Office Visit [facility] OPTOMETRY [address] [place] [address] Enrrique, Nena, OD [address] [place] [address] 02/23/2025 10:00 AM EST Office Visit [facility] ADULT DENTAL [address] [place] [address] Veronica Rebolledo documented as of this encounter Procedures Procedure Name Priority Date/Time Associated Diagnosis Comments T3, TOTAL Routine 07/27/2023 12:59 PM EDT Low TSH level documented in this encounter Results * T3, Total (07/27/2023 12:59 PM EDT) T3, Total 131 76 - 181 ng/dL [facility] Comment:THIS TEST WAS PERFOR MED AT:[facility] [place] [phone] WRIGHT MD Blood Venous blood specimen / Unknown 07/27/2023 12:59 PM EDT 07/27/2023 4:06 PM EDT us Nikki Cervantes MD LAB BLOOD ORDERABLES Final Res ult [facility] [address] [place] [phone] documented in this encounter Visit Diagnoses Diagnosis Low TSH level- Primary documented in this encounter Additional Health Concerns Assessment Noted Time PHQ-9 Depression Total Score: 9 06/25/19 24 1:42 PM EST documented as of this encounter Care Teams Pharmaceutical Engineer Relationship Specialty Start Date End Date Nikki Cervantes MD [address] [place] [address] PCP - General Family Medicine 12/22/19 José Carrasco, RN [address] [place] [address] Registered Nurse Family Medicine 09/30/24 10/16/24 Rosalina Sepulveda 09/30/24 10/16/24 documented as of this encounter
[2024-11-19 03:39] LABS: HIV Num 1 0.05 S/CO (0.00-0.99); ~HepC Num1 0.11 S/CO (0.00-0.79); ~Hepatitis C Antibody Nonreactive (Nonreactive)
== END 2024-11-18 10:57 | disposition home or self-care (01) ==
LOC: HO.HHCL 10:56
PROVIDERS: PCP General Practice; Visit Provider General Practice
DX: Z11.3 Encounter for screening for infections with a predominantly sexual mode of transmission (principal); Z11.59 Encounter for screening for other viral diseases; Z11.4 Encounter for screening for human immunodeficiency virus [HIV]; E66.812 Obesity, class 2; Z68.36 Body mass index [BMI] 36.0-36.9, adult
CPT/HCPCS: 36415; 84443; 86592; 86803; 87389

== ENCOUNTER 2024-12-24 18:52 | Emergency (ER) | payer OTHER, SELFPAY ==
--- NOTE | ~2024-12-24 | XR_ITS ---
CLINICAL HISTORY: fall w left hip pain 3 view, pelvis and left hip Comparison: None provided Findings: The bones are intact. No significant arthritic change. The soft tissues are unremarkable. IMPRESSION: No acute findings. This document has been electronically signed by: Remberto Dumont MD on 12/24/2024 20:29:51
[2024-12-24 19:05] VITALS: BP 127/82; PULSE 100; RESP 20; TEMP 37.4; O2SAT 99; BMI 34.9
--- NOTE | 2024-12-24 19:06 | ED_ITS ---
HPI - General Adult General Chief complaint: General Medical Stated complaint: fever, cough, dizziness, hot flashes Time Seen by Provider: 12/24/24 20:52 Source: patient Limitations: no limitations History of Present Illness ED Provider: Emily Flores PA-C HPI narrative: 24-year-old female presents with multiple complaints. Patient is complaining of left hip pain x1 week after falling at work. Patient is still ambulatory. Patient also complains of new onset cough, chest congestion, shortness of breath fever and chills that began this morning. Denies known sick contacts with similar symptoms. Related Data Home Medications ?Medication ?Instructions ?Recorded ?Confirmed ibuprofen 600 mg tablet 600 mg PO Q8H PRN 01/18/21 Previous Rx's ?Medication ?Instructions ?Recorded cephalexin 500 mg capsule (Keflex) 500 mg PO QID #28 c aps 05/21/20 doxycycline hyclate 100 mg tablet 100 mg PO BID #14 ta bs 05/21/20 doxycycline hyclate 100 mg capsule 100 mg PO BID #20 c aps 07/22/20 albuterol sulfate 90 mcg/actuation 1 inh inhalation QI D PRN shortness 03/12/21 aerosol inhaler of breath or wheezing #6.7 g fredis amoxicillin 875 mg-potassium 1 tab PO BID #14 tabs clavulanate 125 mg tablet (Augmentin) azithromycin 250 mg tablet See Rx Instructions PO .COM PLEX #6 03/12/21 (Zithromax Z-Don) tabs prednisone 20 mg tablet 40 mg (2 x 20 mg) PO DAILY # 10 tabs 03/12/21 cetirizine 10 mg capsule (Zyrtec) 10 mg PO DAILY #14 c aps 08/22/21 fluticasone propionate 50 1 spray intranasal Q12H #16 grams 08/22/21 mcg/actuation nasal spray,suspension (Flonase Allergy Relief) lactulose 10 gram oral packet 20 g PO BID #15 ea 07/27 cefuroxime axetil 250 mg tablet 250 mg PO BID 7 days # 14 tabs 03/24/23 ibuprofen 600 mg tablet 600 mg PO Q6H PRN fever or p ain 03/24/23 #30 tabs amoxicillin 875 mg-potassium 1 tab PO Q12H 5 days #10 tabs 02/25/24 clavulanate 125 mg tablet doxycycline hyclate 100 mg capsule 100 mg PO BID 7 day s #14 caps 02/25/24 prednisone 20 mg tablet 40 mg (2 x 20 mg) PO DAILY 5 days 02/25/24 #10 tabs Allergies Allergy/AdvReac Type Severity Reaction Status Date / Time No Known Allergies Allergy Verified 12/24/24 19:08 Review of Systems Review of Systems: Yes all other systems are reviewed and are negative Constitutional: Constitutional: Reports fatigue, Reports fever(s) and Reports malaise Cardiovascular: Cardiovascular: Denies chest pain Respiratory: Respiratory: Reports chest congestion, Reports cough and Denies wheezing Gastrointestinal: Gastrointestinal: Denies abdominal pain, Denies nausea and Denies vomiting Musculoskeletal: Musculoskeletal: Reports arthralgias and Denies joint swelling Endocrine: Endocrine: Reports fatigue Allergic/Immunologic: Allergic/Immunologic: Denies wheezing PMFSH Past Medical History Attestation statement: The following information was validated with the patient. Medical History Cellulitis of umbilicus Asthma Surgical History Hx of umbilical hernia repair Social History Social History Alcohol intake: never Advance Directives: No Advance Directives Information Provided: Yes Do you have a plan to hurt others: No Plan Physical Exam ED Vital Signs: Vital Signs - 24 hr 12/24/24 19:05 12/24/24 21:20 Temperature 99.3 F 98.1 F Pulse Rate 100 101 H Respiratory Rate 20 16 Blood Pressure 127/82 124/78 Pulse Oximetry 99 97 Oxygen Delivery Method Room Air Room Air BMI result Body Mass Index 34.9 Const Other: Alert well-appearing Orientation/consciousness: patient oriented x3 Resp Effort & Inspection: normal respiratory effort Cardio Other: Normal peripheral perfusion Skin Other: Warm dry no rash Neuro General: patient oriented x3, gait normal, no focal motor deficits and CN's II- XI intact bilaterally Psych Other: Cooperative Course Course Course Narrative: This is a Rapid Medical Examination (RME) performed by Shaylee Fam PA-C in triage. Full HPI, ROS, assessment and treatment plan per primary provider in the Main ED. Hx: 24 yo F here w/ cough, congestion, and fevers x today. 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 taking OTC pain meds w/o improvement. Plan: covid/flu swabs, xr Medical Decision Making Medical Decision Making [facility] Narrative: 24-year-old female presents with multiple complaints. Patient is complaining of left hip pain x1 week after falling at work. Patient is still ambulatory. Patient also complains of new onset cough, chest congestion, shortness of breath fever and chills that began this morning. Denies known sick contacts with similar symptoms. No chronic issues History: Per patient I have considered the following differential diagnoses: Musculoskeletal strain, fracture, dislocation, contusion, viral syndrome, pneumonia Plan: Patient just developed respiratory symptoms today, she was found to have COVID. We will send with the care instructions. X-ray was obtained of the hip pelvis, it is normal. She has musculoskeletal strain. I have independently reviewed the following tests: Labs: COVID positive X-ray hip pelvis left colonFindings: The bones are intact. No significant arthritic change. The soft tissues are unremarkable. IMPRESSION: No acute findings. Differential Diagnosis Differential Diagnoses: The differential diagnosis associated with the presentation includes See medical decision-making Admission/Observation Consideration of admission/observation: Escalation of care including admission/observation considered Not applicable Lab Data [facility] Lab Attestation statement: I reviewed the patient's lab results. Labs: Lab Results 12/24/24 Range/Units 20:28 COVID-19 (TRACEY) Positive A (Negative) COVID-19 Clin Com See Note Influenza Type A (SHIRAZ) Negative (Negative) Influenza Type B (SHIRAZ) Negative (Negative) Influenza A & B Note See Note Radiology Impression Discussion of test interpretation with radiology: I have reviewed the radiologist's reading. Discharge Plan Discharge Clinical Impression: COVID-19, Acute pain of left hip Patient Disposition: Home, Self-Care Instructions: COVID-19 (Coronavirus Disease 2019) (ED) Additional Instructions: The x-ray of the hip and pelvis was normal, you likely have musculoskeletal strain. See home care instructions. You also were found to have COVID. See home care instructions. You need to self isolate for 5 days. Follow up with primary care as needed. Prescriptions: No Action cephalexin [Keflex] 500 mg capsule 500 mg PO QID Qty: 28 0RF doxycycline hyclate 100 mg tablet 100 mg PO BID Qty: 14 0RF doxycycline hyclate 100 mg capsule 100 mg PO BID Qty: 20 0RF Zyrtec 10 mg capsule 10 mg PO DAILY Qty: 14 0RF fluticasone propionate [Flonase Allergy Relief] 50 mcg/actuation spray,suspension 1 spray intranasal Q12H Qty: 16 0RF Rx Instructions: administer into each nostril azithromycin [Zithromax Z-Don] 250 mg tablet See Rx Instructions .ROUTE .COMPLEX Qty: 6 0RF Rx Instructions: take 500 mg today (day 1), then 250 mg for 4 days (days 2-5) prednisone 20 mg tablet 40 mg PO DAILY Qty: 10 0RF albuterol sulfate 90 mcg/actuation HFA aerosol inhaler 1 inh inhalation QID PRN (Reason: shortness of breath or wheezing) Qty: 6.7 0RF amoxicillin-pot clavulanate [Augmentin] 875-125 mg tablet 1 tab PO BID Qty: 14 0RF lactulose 10 gram packet 20 g PO BID Qty: 15 0RF cefuroxime axetil 250 mg tablet 250 mg PO BID 7 Days Qty: 14 0RF ibuprofen 600 mg tablet 600 mg PO Q6H PRN (Reason: fever or pain) Qty: 30 0RF doxycycline hyclate 100 mg capsule 100 mg PO BID 7 Days Qty: 14 0RF amoxicillin-pot clavulanate 875-125 mg tablet 1 tab PO Q12H 5 Days Qty: 10 0RF prednisone 20 mg tablet 40 mg PO DAILY 5 Days Qty: 10 0RF ibuprofen 600 mg tablet 600 mg PO Q8H PRN Stand Alone Forms: Work/School Release Interventions: ED Discharge Assessment Last Done: 12/24/24 21:20 Discharge Date/Time: 12/24/24 21:20 Print Language: Portuguese
[2024-12-24 20:45] LABS: COVID-19 Test Positive (Negative); IDNOW Serial# 58CA691E
[2024-12-24 20:56] LABS: Influenza B2 Negative (Negative)
[2024-12-24 20:57] LABS: IDNOW Serial# 58CA691E
--- OUTSIDE RECORDS SUMMARY | 2024-12-24 20:57 | XMS_ITS | Clinical Summary ---
Author Organization [employer] Address [address] [facility] [address] [place] [address] Care Team Providers Care Lipstick Molder Name Role Phone Nikki Cervantes MD Primary Care Provider [phone] Allergies No known active allergies Medications * This document contains information received from the source organization and may not represent a complete record from that organization. Blood Pressure Monitoring (Blood Pressure Cuff) miscIndications :Elevated blood pressure reading 1 Dose in the morning. 1 each 06/26/19 24 Active senna (Senokot) 8.6 MG tabletIndicatio ns:Other constipation Take 1 tablet (8.6 mg) by mouth at bedtime. 90 tablet 03/05/20 24 Active PARoxetine (Paxil) 10 MG tabletIndicatio ns:Depression with anxiety Take 1 tablet (10 mg) by mouth in the morning. 90 tablet 3 03/05/20 24 025 Active albuterol 108 (90 Base) MCG/ACT inhalerIndicati ons:Mild intermittent asthma with acute exacerbation Inhale 2 puffs every 4 (four) hours if needed for wheezing. You can use 4-6 puffs while you are sick with pneumonia 18 g 11 03/05/20 24 025 Active hydrOXYzine pamoate (Vistaril) 25 MG capsuleIndicati ons:Depression with anxiety Take 1 capsule (25 mg) by mouth every 8 (eight) hours if needed for itching. 90 capsule 3 03/05/20 24 Active psyllium (Metamucil Smooth Texture) 58.6 % powder Take 5.12 g (3 g of fiber) by mouth 2 times daily. 283 g 11 03/05/20 24 025 Active hydrocortisone 0.5 % cream APPLY TOPICALLY 2 (TWO) TIMES A DAY FOR 14 DAYS. FOR PERIANAL LACERATIONS. 05/06/19 25 Active Linzess 145 MCG capsule take 1 capsule (145 mcg total) by mouth once daily Active Drospirenone (Slynd) 4 MG tablet Take 1 tablet by mouth Once per day. 28 tablet 11 09/10/19 25 Active lidocaine (Lidoderm) 5 % patch Apply 1 patch topically Once per day. Remove & discard patch within 12 hours or as directed by MD. 30 patch 2 11/05/19 25 026 Active triamcinolone (Kenalog) 0.1 % cream Apply topically if needed in the morning and at bedtime for irritation. 30 g 3 11/19/19 25 Active phentermine 15 MG capsule Take 1 capsule (15 mg) by mouth before breakfast. 30 capsule 11/19/19 25 Active lactulose (Chronulac) 10 GM/15ML solution TAKE 30 MLS BY MOUTH TWICE A DAY 08/30/19 Active levonorgestrel (Plan B) 1.5 MG tablet Take 1 tablet by mouth Once per day. 09/10/19 25 Active tiZANidine (Zanaflex) 4 MG tabletIndicatio ns:Acute pain of left thigh Take 1 tablet (4 mg) by mouth every 6 (six) hours if needed for muscle spasms for up to 15 days. 30 tablet 1 12/16/19 25 025 Active naproxen (Naprosyn) 500 MG tabletIndicatio ns:Acute pain of left thigh Take 1 tablet (500 mg) by mouth 2 times daily for 14 days. 28 tablet 12/16/19 25 025 Active acetaminophen (Tylenol Extra Strength) 500 MG tabletIndicatio ns:Acute pain of left thigh Take 2 tablets (1,000 mg) by mouth every 6 (six) hours if needed for mild pain for up to 14 days. 112 tablet 12/16/19 25 025 Active tiZANidine (Zanaflex) 2 MG tablet Take 1 tablet (2 mg) by mouth every 6 (six) hours if needed for muscle spasms for up to 10 days. 30 tablet 1 11/05/19 25 025 Discontinued(R eorder (will not trigger notification to Pharmacy)) ibuprofen 800 MG tablet Take 1 tablet (800 mg) by mouth 3 times daily. 90 tablet 3 11/19/19 25 025 Discontinued(A lternate therapy) neomycin-polymy bud-hydrocortis one (Cortisporin) otic solutionIndicat ions:Acute otitis externa of left ear, unspecified type Administer 3 drops into the left ear 3 times daily for 7 days. 10 mL 12/14/19 25 025 Active Problems Problem Noted Date Diagnosed Date [...] 2:54 PM EST): Referral to optometry placed Obesity (BMI 35.0-39.9 without comorbidity) 11/21 Assessment [...] or worsen An excuse for work extended Asthma 04/06/2023 04/06/2023 11/19/2024 Right ear pain 05/31/2022 02/26/2024 Assessment & Plan (04/06/2023 10:33 AM EST): Likely part of viral infection, antibiotics not indicated Encounters Date Type Department Care Team Description 12/15/2024 6:40 PM EDT Office Visit [facility] [address] [place] [phone] Shima Rosales NP Acute pain of left thigh (Primary Dx); Strain of left iliopsoas muscle, initial encounter 12/15/2024 Travel 12/15/2024 Telephone [facility] [address] [place] [phone] Nikki Cervantes MD 12/13/2024 12:20 PM EDT Office Visit [facility] [address] [place] [phone] Hector Price MD Acute otitis externa of left ear, unspecified type (Primary Dx); Pharyngitis, unspecified etiology 12/13/2024 Travel 12/04/2024 Refill [facility] [address] [place] [phone] Nikki Cervantes MD 11/18/2024 10:30 AM EDT Office Visit [address] [address] Nikki Cervantes MD Screening examination for STI (Primary Dx); Irregular periods; Dietary counseling; Exercise counseling; Class 2 obesity without serious comorbidity with body mass index (BMI) of 36.0 to 36.9 in adult, unspecified obesity type; Obesity (BMI 35.0-39.9 without comorbidity); Depression with anxiety; Other constipation 11/18/2024 Travel 11/14/[address] [address] Nikki Cervantes MD chart prep 11/10/2024 Patient Outreach [address] [address] Nikki Cervantes MD Pre-visit Planning (SDOH screening completed on 09/30/2024) 11/04/2024 10:20 AM EDT Office Visit [facility] [address] [place] [phone] Casey Hernandez MD Chronic midline low back pain with right-sided sciatica (Primary Dx) 11/04/2024 Travel 11/03/[address] [address] Nikki Cervantes MD Nurse Triage 11/03/[address] [address] Nikki Cervantes MD Lab Orders 10/17/2024 Patient Outreach [address] [address] Nikki Cervantes MD 10/16/2024 Patient Outreach [address] [address] Nikki Cervantes MD Care Management (C3CM- Initial assessment/enrollmen t/closed-externally managed) 10/15/2024 Patient Outreach [address] [address] Nikki Cervantes MD Care Coordination 09/30/2024 Patient Outreach [address] [address] Nikki Cervantes MD Care Coordination 09/30/2024 Patient Outreach [address] [phone] Nikki Cervantes MD 09/30/2024 Patient Outreach [address] [phone] Nikki Cervantes MD Care Coordination (C3- chart review) 09/30/2024 Patient Outreach [facility] [address] [place] [address] Nikki Cervantes MD 09/29/2024 Orders Only GENERIC EXTERNAL DATA DEPARTMENT Provider, Generic External Data from Last 3 Months Immunizations Immunization Administration [...] drink = 0.6 oz pur e alcohol) Alcohol Answer Date Recorded How often do you have a drink containing alcohol ? 1 11/18/2024 How many drinks containing a lcohol do you have on a typical day when you are drinking? 0 11/18/2024 How often do you have six or more drinks on one occasion? 1 11/18/2024 Depression Answer Date Recorded Patient Health Questionnaire-9 Score 2 11/18/2024 Patient Health Questionnaire-9 Score 2 11/18/2024 Last PHQ-9: Questionnaire Data Not on file 0 11/18/2024 Housing Stability Answer Date Recorded What is your housing situation today? I do not have housing (Staying with others, in a hotel, in a senior living, living outside on the street, on a beach, in a car, or in a park 09/30/[address] you li ve. Do you have problems with any of the following? None of the above 09/30/2024 Food Insecurity Answer Date Recorded Within the past 12 months, y ou worried that your food would run out before you got money to buy more: Sometimes True 2024 Within the past 12 months,th e food you bought just didn't last and you didn't have enough money to get more: Sometimes True 09/30/2024 Transportation Answer Date Recorded In the past 12 months, has l ack of transportation kept you from medical appts, meetings, work or from getting things needed for daily living? No 09/30/2024 Utilities Answer Date Recorded In the past 12 months, has t he electric, gas, oil or water company threatened to shut off services in your home? No 09/30/2024 Depression Answer Date Recorded Patient Health Questionnaire-2 Score 1 11/18/2024 Internet Access Answer Date Recorded Internet Access Q1 Yes 09/30/2024 Internet Access Q2 Not on file 09/30/2024 Comments No Intention Date Recorded No desire to become (finding) 0 09/09/2024 Sex and Gender Information Value Date Recorded Sex Assigned at Female 02/20/2022 10:16 AM EDT Legal Sex Female 10:16 AM EDT Gender Identity Female 02/20/2022 10:16 AM EDT Sexual Orientation Straight 02/20/2022 10 :16 AM EDT Last Filed Vital Signs Vital Sign Reading Time Taken Comments Blood Pressure 138/92 12/15/2024 6:40 PM EDT Pulse 99 12/15/2024 6:40 PM EDT Temperature 36.8 C (98.2 F) 12/15/2024 6:40 PM EDT Respiratory Rate 16 12/15/2024 6:40 PM EDT Oxygen Saturation 99% 12/15/2024 6:40 PM EDT Inhaled Oxygen Concentration - - Weight 88.5 kg (195 lb) 12/15/2024 6:40 PM EDT Height 152.4 cm (5') 12/13/2024 12:10 PM EDT Body Mass Index 38.08 12/13/2024 12:10 PM EDT Plan of Treatment Upcoming Encounters Date Type Department Care Team (Late st Contact Info) Description 02/10/2025 1:30 PM EDT Office Visit [facility] [address] [place] [address] Nena Osuna, OD [address] [place] [address] 02/23/2025 10:00 AM EST Office Visit [facility] [address] [place], [place] [phone] Veronica Rebolledo Health Maintenance Due Date Last Done Comments Disability Screening 2000 HPV Vaccines (3 - 3-dose series) 11/08/2017 08/16/2017, 06/26/2016 Pneumococcal Vaccine: Pediatrics (0 to 5 Years) and At-Risk Patients (6 to 49) Years (1 of 2 - PCV) 2018 COVID-19 Vaccine (3 - season) 2024 03/22/2022, 01/18/2022 Influenza Vaccine (#1) 2024 05/31/2022, 2016 Family Planning (PISQ) 09/09/2025 09/09/2024 SDOH Screening 09/30/2025 09/30/2024 Alcohol/Substance Use Screening 11/18/2025 11/18/2024 Depression Screening 11/18/2025 11/18/2024, 11/19/19 Tobacco Screening 12/16/2025 12/16/2024 Pap Smear 09/10/2027 09/09/2024, 02/08/2021 Lipid Panel 06/24/2028 06/25/2023 DTaP/Tdap/Td Vaccines (8 [...] 12/11/2002, Additional history exists HIV Screening Completed 11/18/2024, 09/2024, 06/18/2019 Hepatitis C Screening Completed 11/18/2024 , 08/26/2024, 06/18/2019 Hepatitis A Vaccines Aged Out No [...] Procedure Name Priority Date/Time Associated Diagnosis Comments POC MARIE ID NOW STREP A Routine 12/13/2024 12:32 PM EDT Pharyngitis, unspecified etiology TSH W/REFLEX TO FT4 Routine 11/18/2024 1 1:04 AM EDT Class 2 obesity without serious comorbidity with body mass index (BMI) of 36.0 to 36.9 in adult, unspecified obesity type HEPATITIS C AB W/REFL TO HCV RNA, QN, PCR Routine 11/18/2024 11:04 AM EDT Screening examination for STI HIV 1/2 ANTIGEN/ANTIBODY, FOURTH GENERATION W/RFL Routine 11/18/2024 11:04 AM EDT Screening examination for STI RPR (MONITOR) W/REFL TITER Routine 11/18/2024 11:04 AM EDT Screening examination for STI POCT , URINE Routine 11/18/2024 10:36 AM EDT Irregular periods HIGH SENSITIVITY TROPONIN I Routine 09/29/2024 7:17 PM EDT HCG, TOTAL, QN Routine 09/29/2024 7:17 PM EDT LIPASE Routine 09/29/2024 7:17 PM EDT MAGNESIUM Routine 09/29/2024 7:17 PM EDT COMPREHENSIVE METABOLIC PANEL Routine 09/29/2024 7:17 PM EDT CBC WITH AUTO DIFFERENTIAL Routine 09/29/2024 7:17 PM EDT PAP SMEAR Routine 09/09/2024 10:00 AM EDT Routine cervical smear LIPID PANEL, STANDARD Routine 06/25/2023 2:26 PM EST Elevated blood pressure reading from Last 3 Months or Most Recently Relevant to Health Maintenance Results * POCT Rapid Strep A MARIE ID NOW (12/13/2024 12:32 PM EDT) Rapid Strep A Screen Negative Negative, None Detected Swab 12/13/2024 12:3 2 PM EDT Hector Price MD POINT OF CARE TEST ENTER/EDIT OR DERABLES Final Result * TSH W/Reflex to FT4 (11/18/2024 11:04 AM EDT) TSH reflex Free T4 1.01 0.32 - 4.0 uIU/mL [facility] Blood Venous blood specimen / Unknown 11/18/2024 11:04 AM EDT 11/18/2024 1:22 PM EDT Nikki Cervantes MD LAB BLOOD ORDERABLES Final Res ult [facility] [address] [place] [address] [phone] * Hepatitis C Antibody with Reflex to HCV, RNA, Quantitative, Real-Time PCR (11/18/2024 11:04 AM EDT) Hepatitis C Antibody Nonreactive Nonreactive [facility] Comment:Antibodies to HCV no t detected; does not exclude early acuteHCV infection. Blood Venous blood specimen / Unknown 11/18/2024 11:04 AM EDT 11/18/2024 1:22 PM EDT Nikki Cervantes MD LAB BLOOD ORDERABLES Final Res ult Performing Organization Address [facility] Co de Phone Number [facility] [address] [place] [address] [phone] * RPR (Monitor) with Reflex to??Titer (11/18/2024 11:04 AM EDT) Pathologist [facility] RPR (Monitor) w/Refl Titer NON-REACTI VE NON-REACT MARISELA [facility] Comment:THIS TEST WAS PERFOR MED AT:[facility] [place] [phone] WRIGHT MD Rapid Plasma Reagin Ab Titer TNP [facility] Blood Venous blood specimen / Unknown 11/18/2024 11:04 AM EDT 11/18/2024 1:01 PM EDT Nikki Cervantes MD LAB BLOOD ORDERABLES Final Res ult Performing Organization Address [facility] Co de Phone Number [facility] [address] [place] [phone] [phone] * HIV-1/2 Antigen and Antibodies, Fourth Generation, with Reflexes (11/18/2024 11:04 AM EDT) HIV AB/AG Nonreactive Nonreactive [facility] Comment:HIV-1 p24 Ag and/or HIV-1/HIV-2 Ab not detected.A test result that is nonreactive does not exclude thepossibility of exposure to or infection with HIV-1 and/orHIV-2. Nonreactive results in this assay for individualswith prior exposure to HIV-1 and/or HIV-2 may be due toantigen and antibody levels that are below the limit ofdetection of this assay.The Marie Alinity HIV Ag/Ab Combo assay result andsupplemental assay results should be interpreted inconjunction with the patient's clinical presentation,history and other laboratory results. If the results areinconsistent with clinical evidence, additional testing issuggested to confirm the result. Blood Venous blood specimen / Unknown 11/18/2024 11:04 AM EDT 11/18/2024 1:22 PM EDT Nikki Cervantes MD LAB BLOOD ORDERABLES Final Res ult Performing Organization Address [facility] Co de Phone Number [facility] [address] [place] [phone] * POCT Urine (11/18/2024 10:36 AM EDT) [facility] Preg Test, Ur Negative Negative, Indeterminate, None Detected, Invalid, Specimen unsatisfactory for evaluation, Weakly Positive, 2+ QC Media Lot # [id number] Lot# Expiration Date [id number] Urine 11/18/2024 10:3 6 AM EDT Result [facility] Nikki Cervantes MD POINT OF CARE TEST ENTER/EDIT ORDERABLES Final Result * High Sensitivity Troponin I (09/29/2024 7:17 PM EDT) [facility] TROPONIN I HIGH SENSITIVITY <2.7 <3.5 - 17.0 ng/L [facility] Comment:The Marie high sens itivity Troponin-I results should beused in conjunction with other diagnostic information suchas ECG, clinical observations and information, and patientsymptoms to aid in the diagnosis of [place]. 09/29/2024 7:17 PM EDT 09/29/2024 7:27 PM EDT Generic External Data Provider LAB BLOOD ORDERAB LES Final Result Performing Organization Address City/[facility] Co de Phone Number [facility] [address] [place] [address] [phone] * CBC auto differential (09/29/2024 7:17 PM EDT) White Blood Count 7.1 4.8 - 10.8 X10*3/uL [facility] Red Blood Count 4.28 4.20 - 5.50 X10*6/uL [facility] Hemoglobin 12.2 12.0 - 16.0 g/dl [facility] Hematocrit 37.0 37.0 - 47.0 % [facility] Mean Corpuscular Volume 86.4 80.0 - 98.0 fL [facility] Mean Corpuscular Hemoglobin 28.5 27.0 - 33.0 pg [facility] Mean Corpuscular HGB Conc 33.0 31.0 - 35.0 g/dl [facility] Red Cell Distribution Width 12.5 11.0 - 16.0 % [facility] Platelet Count 286 160 - 400 X10*3/uL [facility] Mean Platelet Volume 10.4 9.4 - 12.3 fL [facility] Neutrophils Percent Auto 59.5 45 - 73 % [facility] Imm Gran Pct Auto 0.3 0.0 - 0.4 % [facility] Lymphocytes Percent Auto 32.5 20 - 40 % [facility] Monocytes Percent Auto 6.5 2 - 11 % [facility] Eosinophils Percent Auto 0.6 0 - 4 % [facility] Basophils Percent Auto 0.6 0 - 2 % [facility] NRBC Pct Auto 0.0 0.0 - 0.2 /100WBC [facility] Neutrophils Absolute Auto 4.2 2.0 - 8.3 x10*3/uL [facility] Imm Gran Abs Auto 0.02 0.00 - 0.03 X10*3/uL [facility] Lymphocytes Absolute Auto 2.3 1.2 - 4.9 X10*3/uL [facility] Monocytes Absolute Auto 0.5 0.1 - 1.2 X10*3/uL [facility] Eosinophils Absolute Auto 0.0 0.0 - 0.4 X10*3/uL [facility] Basophils Absolute Auto 0.0 0.0 - 0.2 X10*3/uL [facility] NRBC Abs Auto 0.000 0.0 - 0.012 X10*3/uL [facility] 09/29/2024 7:17 PM EDT 09/29/2024 7:27 PM EDT Generic External Data Provider LAB BLOOD ORDERAB LES Final Result Performing Organization Address [facility]/ZIP Co de Phone Number [facility] [address] [place] [phone] * hCG, Total, Quantitative (09/29/2024 7:17 PM EDT) HCG Quantitative <2 mIU/mL [facility] Comment:Weeks post LMP Appro ximate hCG(Last Menstrual Period) Range (mIU/ml)3 - 4 weeks 9 - 1304 - 5 weeks 75 - 2,6005 - 6 weeks 850 - 20,8006 - 7 weeks 4000 - 100,2007 - 12 weeks 11,500 - 289,30810 - 16 weeks 18,300 - 137,64041 - 29 weeks (2nd trimester) 1,400 - 53,38164 - 41 weeks (3rd trimester) 940 - 60,000The Marie B- hCG assay is used for the early detection ofpregnancy; it cannot be used to diagnose any conditionunrelated to . If a B-hCG level is not supportedby the clinical evidence, results should be confirmed by analternative method (qualitative urine hCG, for example). 09/29/2024 7:17 PM EDT 09/29/2024 7:27 PM EDT Generic External Data Provider LAB BLOOD ORDERAB LES Final Result Performing Organization Address [facility]/ZIP Co de Phone Number [facility] [address] [place] [phone] * Magnesium (09/29/2024 7:17 PM EDT) Pathologist [facility] Magnesium 1.8 1.6 - 2.6 mg/dL [facility] 09/29/2024 7:17 PM EDT 09/29/2024 7:27 PM EDT Generic External Data Provider LAB BLOOD ORDERAB LES Final Result Performing Organization Address [facility]/ZIP Co de Phone Number [facility] [address] [place] [phone] * Lipase (09/29/2024 7:17 PM EDT) Pathologist [facility] Lipase 17 8 - 78 U/L [facility] 09/29/2024 7:17 PM EDT 09/29/2024 7:27 PM EDT [place] External Data Provider LAB BLOOD ORDERAB LES Final Result Performing Organization Address [facility]/ZIP Co de Phone Number [facility] [address] [place] [phone] * (ABNORMAL) Comprehensive Metabolic Panel (09/29/2024 7:17 PM EDT) [facility] Sodium 139 135 - 145 mmol/L [facility] Potassium 3.8 3.3 - 5.1 mmol/L [facility] Chloride 109(H) 96 - 108 mmol/L [facility] Carbon Dioxide 23 22 - 29 mmol/L [facility] Anion Gap 11(L) 12 - 20 [facility] Urea Nitrogen (BUN) 16 9 - 16 mg/dL [facility] Creatinine, Serum 0.73 0.5 - 1.4 mg/dL [facility] Creatinine Clr Calc Pharmacy 119.9 [facility] Comment:Provided height and weight: 157.48 cm,86.183 kg.eGFR (calculated from the MDRD study equation) and eCrCl(calculated from the Cockcroft-Gault equation) are based ondifferent parameters and may not yield comparable results.If eCrCl result is absurd, please check patient'sheight/weight. Estimated Glomerular Filt Rate >60 [facility] Comment:Chronic Kidney Disea se: Estimated GFR < 60 mL/min/[id number] Kidney Disease: Estimated GFR < 15 mL/min/1.73m2 Glucose 88 60 - 115 mg/dL [facility] Calcium 9.2 8.4 - 10.2 mg/dL [facility] Bilirubin, Total 0.1 0.0 - 1.0 mg/dL [facility] Aspartate Amino Transferase 23 5 - 31 U/L [facility] Alanine Aminotransferase 20 0 - 31 U/L [facility] Total Protein 6.8 6.5 - 8.0 g/dL [facility] Albumin Level 4.4 3.5 - 5.0 g/dL [facility] Alkaline Phosphatase 62 39 - 117 U/L [facility] 09/29/2024 7:17 PM EDT 09/29/2024 7:27 PM EDT us Generic External Data Provider LAB BLOOD ORDERAB LES Final Result [facility] [address] [place] [phone] * Pap Smear (09/09/2024 10:00 AM EDT) Swab Cervix uteri structure / Unknown 09/09/2024 10:00 AM EDT 09/10/2024 9:30 AM EDT Narrative [facility] - 09/12/2024 9:22 AM EDT ----- ------- Name: Tracie Mixon Age/Sex: 24/F : 2000 Unit#: [id number] Attend Dr: RONALD BOELS CNM Re09/09/24 Status: DEP REF Location: HO.HHCLNP Disch: ----- ------- SPEC : [id number] RECD: 09/10/24 STATUS: YASH GUDINONicolette NUM: [id number] MARCELO: 09/09/24-[address]: RONALD BOLES [facility] ENTERED: 09/10/24-1029 SP TYPE: Pap Smr OTHR DR: ORDERED: Pap Smear Interpretation Satisfactory for evaluation. Negative for intraepithelial lesion or malignancy. Mild inflammation. Clinical Information LMP: Unknown date Previous PAP test: 2020, nil, Unknown findings Material Received ThinPrep-Cervical ----- ------- Signed (signature on file) GEO Frias ([facility]) 09/12/24 0922 ----- ------- END OF REPORT Ronald Maritza [facility] LAB CYTOLOGY ORDERABLES F inal Result Performing Organization Address City/[facility]/ZIP Co de Phone Number [facility] [address] [place] [phone] * (ABNORMAL) Lipid Panel, Standard (06/25/2023 2:26 PM EST) Triglycerides 96 <150 mg/dL [facility] Comment:Desirable Triglyceri de: less than 150 mg/dLBorderline High Triglyceride 150-199 mg/dLHigh Triglyceride: 200-499 mg/dLVery High Triglyceride: greater than or equal to 5OO mg/dL Cholesterol 179 <200 mg/dL [facility] Comment:Desirable Cholestero l: less than 200 mg/dLBorderline High Cholesterol: 200-239 mg/dLHigh Cholesterol: greater than 239 mg/dL LDL Cholesterol Calculated 118(H) <100 mg/dL [facility] Comment:Desirable LDL: less than 100 mg/dLNear Optimal/Above Optimal LDL: 110- 129 mg/dLBorderline High LDL: 130-159 mg/dLHigh LDL: 160-189 mg/dLVery High LDL: greater than or equal to 190 mg/dL HDL Cholesterol 42 >40 mg/dL [facility] Comment:Desirable HDL: great er than 40 mg/dL Note: This HDL assay may give artificially low results in patients with liver disease. Blood Venous blood specimen / Unknown 06/25/2023 2:26 PM EST 06/25/2023 4:02 PM EST us Nikki Cervantes MD LAB BLOOD ORDERABLES Final Res ult [facility] [address] [place] [address] [phone] from Last 3 Months or Most Recently Relevant to Health Maintenance Insurance [facility] C3 DENTAL-[facility] MEDICAID STAND ADULT Care Teams Lipstick Molder Relationship Specialty Start Date End Date Nikki Cervantes MD [address] [place] [address] PCP - General Family Medicine 12/22/19
--- OUTSIDE RECORDS SUMMARY | 2024-12-24 20:57 | XMS_ITS | Encounter Summary ---
Author Organization [employer] Address [address] [facility] 7 [place] [address] Care Team Providers Care Microelectronics Engineer Name Role Phone Nikki Cervantes MD Primary Care Provider [phone] Reason for Visit * Reason Onset Date Comments Med Refill 12/04/2024 Encounter Details Date Type Department Care Team (Late st Contact Info) Description 12/04/2024 Refill [facility] MED[facility] [address] [place], [place] [phone] Nikki Cervantes MD [address] [place] [address] Social History Tobacco Use Types Packs/Day Years [...] with others, in a hotel, in a longterm, living outside on the street, on a [...] Q2 Not on file 09/30/2024 Comments No Sex and Gender Information Value [...] Description 02/10/2025 1:30 PM EDT Office Visit [facility] OPTOMETRY [address] [place] [address] Nena Osuna, OD [address] [place] [address] 02/23/2025 10:00 AM EST Office Visit [facility] ADULT DENTAL [address] [place] [address] Veronica Rebolledo documented as of this encounter Visit Diagnoses Not on filedocumented in this encounter Additional Health Concerns Assessment Noted Time PHQ-9 Depression Total Score: 2 11/19/19 25 11:17 AM EDT documented as of this encounter Care Teams Microelectronics Engineer Relationship Specialty Start Date End Date Nikki Cervantes MD [address] [place] [phone] PCP - General Family Medicine 12/22/19 documented as of this encounter
--- OUTSIDE RECORDS SUMMARY | 2024-12-24 20:57 | XMS_ITS | Clinical Summary ---
Author Organization [address] [facility] Address [address] [place] [address] Phone Care Team Providers Care Marine Cargo Specialist Name Role Phone Nikki Cervantes MD Primary Care Provider [phone] Allergies No known active allergies Medications docusate [...] (two) times a day. 5400 mL 08/28/2024 11/27/19 25 Social History Tobacco Use Types Packs/Day [...] 2018 Cervical Cancer Screening: Pap Smear 2020 Social Influencers of Health Screening 04/01/2024 Depression Screening 04/23/2024 COVID-19 Vaccine ( season) 2024 03/22/2022, 01/18/2022 Influenza Vaccine (#1) 2024 05/31/2022, 2016 Cholesterol [...] patient's age to [place] [id number] MEDICAID - [place] Care Teams Marine Cargo Specialist Relationship Specialty Start Date End Date Nikki Cervantes MD [address] [place] [address] PCP - General Improvement Specialist 04/01/24
--- OUTSIDE RECORDS SUMMARY | 2024-12-24 20:57 | XMS_ITS | Encounter Summary ---
Author Organization [employer] Address [address] [facility] 7t [place] [address] Care Team Providers Care Materials Recycler Name Role Phone Nikki Cervantes MD Primary Care Provider [phone] José Carrasco RN Unavailable [phone] Rosalina Sepulveda Unavailable Encounter Details Date Type Department Care Team (Late st Contact Info) Description 07/18/2023 Orders Only [facility] [address] [place], [place] [phone] Nikki Cervantes MD [address] [place], [place] [phone] Low TSH level (Primary Dx) Social History [...] Description 02/10/2025 1:30 PM EDT Office Visit [facility] OPTOMETRY [address] [place] [address] Enrrique, Nena, OD [address] [place] [address] 02/23/2025 10:00 AM EST Office Visit [facility] ADULT DENTAL [address] [place] [address] Veronica Rebolledo documented as of this encounter Procedures Procedure Name Priority Date/Time Associated Diagnosis Comments T3, TOTAL Routine 07/27/2023 12:59 PM EDT Low TSH level documented in this encounter Results * T3, Total (07/27/2023 12:59 PM EDT) T3, Total 131 76 - 181 ng/dL [facility] Comment:THIS TEST WAS PERFOR MED AT:[employer] [place] [phone] WRIGHT MD Blood Venous blood specimen / Unknown 07/27/2023 12:59 PM EDT 07/27/2023 4:06 PM EDT us Nikki Cervantes MD LAB BLOOD ORDERABLES Final Res ult [facility] [address] [place] [address] [phone] documented in this encounter Visit Diagnoses Diagnosis Low TSH level- Primary documented in this encounter Additional Health Concerns Assessment Noted Time PHQ-9 Depression Total Score: 9 06/25/19 24 1:42 PM EST documented as of this encounter Care Teams Materials Recycler Relationship Specialty Start Date End Date Nikki Cervantes MD [address] [place] [address] PCP - General Family Medicine 12/22/19 José Carrasco, RN [address] [place] [address] Registered Nurse Family Medicine 09/30/24 10/16/24 Rosalina Sepulveda 09/30/24 10/16/24 documented as of this encounter
--- OUTSIDE RECORDS SUMMARY | 2024-12-24 20:57 | XMS_ITS | Encounter Summary ---
Author Organization [employer] Address [address] [facility] 7t [place] [address] Care Team Providers Care Event Planning Manager Name Role Phone Nikki Cervantes MD Primary Care Provider [phone] José Carrasco RN Unavailable [phone] Rosalina Sepulveda Unavailable Encounter Details Date Type Department Care Team (Late st Contact Info) Description 03/05/2024 Orders Only [facility] [address] [place], [place] [phone] Nikki Cervantes MD [address] [place], [place] [phone] Other constipation; Depression with anxiety; Mild intermittent [...] Description 02/10/2025 1:30 PM EDT Office Visit [facility] OPTOMETRY [address] [place], [place] [phone] Enrrique, Nena, OD [address] [place] [address] 02/23/2025 10:00 AM EST Office Visit [facility] ADULT DENTAL [address] [place] [address] Veronica Rebolledo documented as of this encounter Visit Diagnoses Diagnosis Other constipation Depression with anxiety Dysthymic disorder Mild intermittent asthma with acute exacerbation documented in this encounter Additional Health Concerns Assessment Noted Time PHQ-9 Depression Total Score: 9 06/25/19 24 1:42 PM EST documented as of this encounter Care Teams Event Planning Manager Relationship Specialty Start Date End Date Nikki Cervantes MD [address] [place] [address] PCP - General Family Medicine 12/22/19 José Carrasco RN [address] [place] [address] Registered Nurse Family Medicine 09/30/24 10/16/24 Rosalina Sepulveda 09/30/24 10/16/24 documented as of this encounter
[2024-12-24 21:20] VITALS: BP 124/78; PULSE 101; RESP 16; TEMP 36.7; O2SAT 97
== END 2024-12-24 21:20 | disposition home or self-care (01) ==
PROVIDERS: Physician Assistant Medical; Emergency Provider Emergency Medicine Emergency Medical Services; PCP General Practice
DX: U07.1 COVID-19 (principal); R50.9 Fever, unspecified; R05.9 Cough, unspecified; M25.552 Pain in left hip; R42 Dizziness and giddiness; N95.1 Menopausal and female climacteric states; R23.2 Flushing; R06.02 Shortness of breath; Z79.899 Other long term (current) drug therapy
CPT/HCPCS: 73502; 87502; 87635; 99282; 99283

== ENCOUNTER → 2024-12-24 19:08 | Outpatient (BNV) | payer MEDICAID, SELFPAY | PROVIDERS: PCP General Practice; Visit Provider Radiology Diagnostic Radiology | DX: M25.552 Pain in left hip (principal); W19.XXXA Unspecified fall, initial encounter | CPT/HCPCS: 73502 ==

== ENCOUNTER → 2025-01-29 12:54 | Outpatient (BNVA) | payer OTHER, SELFPAY | PROVIDERS: PCP General Practice; Visit Provider Emergency Medicine | DX: S70.02XA Contusion of left hip, initial encounter (principal); W51.XXXA Accidental striking against or bumped into by another person, initial encounter | CPT/HCPCS: 99202 ==

== ENCOUNTER → 2025-02-20 14:05 | Outpatient (BNVA) | payer OTHER, SELFPAY | PROVIDERS: PCP General Practice; Visit Provider Physician Assistant | DX: S70.02XA Contusion of left hip, initial encounter (principal); W51.XXXA Accidental striking against or bumped into by another person, initial encounter | CPT/HCPCS: 99213 ==

== ENCOUNTER 2025-03-04 14:00 | Outpatient (RCR) | payer OTHER, MEDICAID, SELFPAY ==
--- NOTE | 2025-02-19 15:02 | MHC.PT.EP ---
[facility] [place] Office [place] Office [place] Office [address] [phone] F: [phone] F: [phone] F: [phone] F: [phone] Physical Therapy Plan of Care Date of Evaluation: 02/19/25 Date of Surgery: Diagnosis: L hip contusion Assessment: 24 y/o female referred to PT with L hip contusion. Pt works as an information assistant for 3-5 y/o. Job duties include walking and standing and occasionally sitting, running, turning, bending, squatting, push/pulling, kneeling and reaching overhead. ALso may need to lift 26-50# < 33% of the time. Injury occurred while at work on 12/12/24 when she was squatting down to console a child during a meltdown and then fell over when the child sat on her. She did not report injury until 2 weeks ago. Reports pain and difficulty with sitting, standing, walking, running, squatting and exercise. Examination shows decreased lumbar and hip ROM, decreased hip strength, L posterior innominate, pain, and impaired gait pattern. Recommend PT 2x/week for 4 weeks to address impairments, implement HEP and optimize functional mobility Frequency and Duration: The patient will be seen 2x/week for 5 weeks Short Term Goals: 3 weeks I with hEP Pt will demonstrate symmetrical bridge 10/10x with pain < 3/10 (IR L side stays dropped) [facility] Goals: 5 weeks I with HEP and self management of sx Pt will be able to ambulate > 30 min with pain < 3/10 Pt will be able to squat 10/10x with pain < 3/10 to faciliate bending down to talk with children Improve LEFS to 20/80 (IR 5/80) Treatment Plan: Modalities to reduce pain, spasms and effusion. Manual therapy to restore motion and function. Therapeutic exercise to improve strength and flexibility. Neuromuscular re-education for posture and balance. Therapeutic activities to return to functional activities of daily living. Electronically signed by: Olivia Hoff PT Please sign and return to therapist. Thank you for your referral.
--- NOTE | 2025-03-18 12:09 | MHC.PT.DC ---
[facility] [place] Office [place] Office [place] Office [address] Cammie Mauricio [address] [phone] F: [phone] F: [phone] F: [phone] F: [phone] Physical Therapy Discharge Report Diagnosis: L hip contusion Date of Surgery: Date of Evaluation: 02/19/25 Date of Discharge: 03/18/25 Treatments to Date: 3 Cancellations to Date: 3 No Shows to Date: 2 Discharge Status: Visit Non-compliance Discharge Summary: Pt with 2 consecutive no show visits and several cancellations. At this time, will d/c d/t noncompliance with scheduling policy. At time of last attended visit, SI appeared WNL and normal gait pattern. Focused on glut strengthening with no pain during these exercises. HEP was distributed. Electronically signed by: Olivai Hoff PT Please sign and return to therapist. Thank you for your referral.
== END 2025-03-18 12:09 | disposition home or self-care (01) ==
LOC: HO.PT 14:00
PROVIDERS: PCP General Practice; Visit Provider Emergency Medicine
DX: S70.02XA Contusion of left hip, initial encounter (principal)
CPT/HCPCS: 97110; 97112; 97140; 97161

== ENCOUNTER → 2025-03-13 13:54 | Outpatient (BNVA) | payer OTHER, SELFPAY | PROVIDERS: PCP General Practice; Visit Provider Physician Assistant | DX: S70.02XD Contusion of left hip, subsequent encounter (principal); W51.XXXD Accidental striking against or bumped into by another person, subsequent encounter | CPT/HCPCS: 99214 ==